=== PATIENT | male | born 1940 | race American Indian/Alaskan Native ===

== ENCOUNTER 2018-11-24 14:40 | Inpatient (IN) | payer MEDICARE, OTHER ==
[2018-11-24 15:13] LABS: Basophils % (Auto) 0.4 % (0.0-1.8); Eosinophils # (Auto) 0.1 K/mm3 (0.0-0.4); Eosinophils % (Auto) 1.6 % (0.0-4.3); Hematocrit 45.3 % (35.5-45.6); Hemoglobin 14.8 gm/dl (11.8-15.2); Lymphocytes # (Auto) 1.7 K/mm3 (1.2-5.4); Lymphocytes % (Auto) 20.6 % (13.4-35.0); Mean Corpuscular HGB Conc 33 % (32-34); Mean Corpuscular Volume 84 fl (84-94); Monocytes # (Auto) 0.4 K/mm3 (0.0-0.8); Monocytes % (Auto) 5.3 % (0.0-7.3); Platelet Count 231 K/mm3 (140-440); Red Blood Count 5.41 M/mm3 (3.65-5.03); Red Cell Distribution Width 14.8 % (13.2-15.2)
--- NOTE | 2018-11-24 15:16 | Emergency Department Report ---
HPI - General Chief Complaint: Altered Mental Status Time Seen by Provider: 11/24/18 14:55 - HPI HPI: 78-year-old male presents to the emergency department with a complaint of some confusion and hyperglycemia. The patient was sitting outside, talking with his , when he started complaining of feeling too hot. Family took him back into the house and checked his blood sugar and was found to be 480. He was given both some NovoLog and Lantus and then they called for EMS. He has his past medical history of insulin-dependent diabetes, hypertension, hyperlipidemia, coronary artery disease with bypass. His primary care physician is a Dr. Styles. Patient says he is unaware of exactly what happened prior to arrival. He thinks that the year is 1975. ED Past Medical Hx - Past Medical History Previous Medical History?: Yes Hx Hypertension: Yes Hx Diabetes: Yes Additional medical history: hyperlipidemia, bypass x3 vessels - Social History Smoking Status: Never Smoker Substance Use Type: Alcohol - Medications Home Medications: Home Medications Medication Instructions Recorded Confirmed Last Taken Type Aspirin [Aspirin TAB] 325 mg PO DAILY 11/24/18 11/24/18 Unknown History Brimonidine Tartrate [Brimonidine 1 drop OU BID 11/24/18 11/24/18 Unknown History Tartrate 0.2%] Cholecalciferol Vit D3 [Vitamin D3 2,000 unit PO BID 11/24/18 11/24/18 Unknown History 1,000 UNIT TAB] Ergocalciferol (Vitamin D2) 50,000 unit PO QWEEK 11/24/18 11/24/18 Unknown History [Drisdol] Losartan [Cozaar] 100 mg PO DAILY 11/24/18 11/24/18 Unknown History NIFEdipine [Adalat cc] 90 mg PO DAILY 11/24/18 11/24/18 Unknown History Rosuvastatin Calcium [Crestor] 40 mg PO DAILY 11/24/18 11/24/18 Unknown History Saxagliptin HCl [Onglyza] 5 mg PO DAILY 11/24/18 11/24/18 Unknown History ED Review of Systems ROS: Stated complaint: ALTERED MENTAL STATUS Other details as noted in HPI Comment: Unobtainable due to pts medical conditions Neurological: confusion Physical Exam - Physical Exam Vital Signs: Vital Signs 11/24/18 14:48 Temperature 98.8 F Pulse Rate 79 Respiratory 17 Rate Blood Pressure 156/74 [Left] O2 Sat by Pulse 100 Oximetry Physical Exam: GENERAL: The patient is well-developed well-nourished. HEENT: Normocephalic. Atraumatic. Patient has moist mucous membranes. EYES: Extraocular motions are intact. Pupils are equal and reactive to light bilaterally. NECK: Supple. Trachea is midline. CHEST/LUNGS: Clear to auscultation. There is no respiratory distress noted. HEART/CARDIOVASCULAR: Regular. There is no tachycardia. There is no obvious murmur. ABDOMEN: Abdomen is soft, nontender. Patient has normal bowel sounds. There is no abdominal distention. SKIN: Skin is warm and dry. NEURO: The patient is awake, alert, the patient is confused at AAO2 to person and place but not time. The patient is cooperative. The patient has no focal neurologic deficits. The patient has normal speech. No facial asymmetry. No pronator drift. No dysmetria. MUSCULOSKELETAL: There is no tenderness or deformity. There is no limitation range of motion. There is no evidence of acute injury. ED Course Vital Signs 11/24/18 14:48 Temperature 98.8 F Pulse Rate 79 Respiratory 17 Rate Blood Pressure 156/74 [Left] O2 Sat by Pulse 100 Oximetry - Consultations Consultation #1: 11/24/18 19:22 I spoke with the lockstitch lining maker on-call, Dr. Gomez, who agrees with the plan to give the hyperkalemia cocktail and he will consult on the patient regarding the hyperkalemia. ED Medical Decision Making - Lab Data Result diagrams: 11/24/18 15:02 11/24/18 15:02 - EKG Data -: EKG Interpreted by Ct EKG shows normal: sinus rhythm, axis, intervals, QRS complexes (Q waves to the anterior leads), ST-T waves (flattening of the T waves) Rate: normal - EKG Data When compared to previous EKG there are: previous EKG unavailable Interpretation: other (sinus rhythm, rate of 74, Q waves to the anterior leads, flattened T waves) - Radiology Data Radiology results: report reviewed CT scan of the brain without contrast does not show any acute intracranial process. 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 - Medical Decision Making 78-year-old male presents to the emergency department after he started feeling very warm and apparently had some confusion or altered mental status. He had some hypoglycemia. He does not appear to be in diabetic ketoacidosis as there is no elevated anion gap or any venous acidosis. However the patient's labs does show hypokalemia with a potassium of 6.4. Patient was given Kayexalate, insulin, calcium gluconate, albuterol. I contacted the lockstitch lining maker admissions assistant who will consult on the patient and follow the hyperkalemia. CT scan of the head showed old bilateral occipital lobe infarcts but no acute intracranial process. EKG does not show any signs of ST elevation HI or dysrhythmia. The patient will be admitted to the hospital for his altered mental status and hyperkalemia and was subsequently admission by the hospitalist, Dr. Quick. - Differential Diagnosis CVA, TIA, DKA, hyperkalemia, dysrhythmia Critical Care Time: No Critical care attestation.: If time is entered above; I have spent that time in minutes in the direct care of this critically ill patient, excluding procedure time. ED Disposition Clinical Impression: Hyperkalemia Altered mental status Qualifiers: Altered mental status type: unspecified Qualified Code(s): R41.82 - Altered mental status, unspecified Uncontrolled diabetes mellitus Qualifiers: Diabetes mellitus type: type 1 Glycemic state: with hyperglycemia Qualified Code(s): E10.65 - Type 1 diabetes mellitus with hyperglycemia Disposition: -09 OP ADMIT IP TO THIS HOSP Is pt being admited?: Yes Condition: Serious Time of Disposition: 19:23 - Assessment Assessment Interval: Baseline - Level of Consciousness 1a. Level of Consciousness: alert/keenly responsive - LOC Questions 1b. LOC Questions: answers both correctly - LOC Command 1c. LOC Commands: performs tasks correctly - Best Gaze 2. Best Gaze: normal - Visual 3. Visual: no visual loss - Facial Palsy 4. Facial Palsy: normal symmetrical movement - Motor Arm 5a. Motor Arm Left: no drift 5b. Motor Arm Right: no drift - Motor Leg 6a. Motor Leg Left: no drift 6b. Motor Leg Right: no drift - Limb Ataxia 7. Limb Ataxia: absent - Sensory 8. Sensory: normal - Best Language 9. Best Language: no aphasia - Dysarthria 10. Dysarthria: normal - Extinction and Inattention 11. Extinction/Inattention: no abnormality - Scoring Total Score: 0 Stroke Severity: No Stroke Symptoms
[2018-11-24 15:40] LABS: Albumin 3.9 g/dL (3.9-5); Calcium 8.8 mg/dL (8.4-10.2)
[2018-11-24] MEDS ORDERED: HumuLIN R IV ONE (15:50)
[2018-11-24] MEDS ORDERED: KIONEX PO ONE (15:53)
[2018-11-24] MEDS ORDERED: PROVENTIL IH ONE (15:53)
[2018-11-24] MEDS ORDERED: CALCIUM GLUCONATE 1,000 MG in NACL 0.9% 100 ML IV ONE (16:53)
--- NOTE | 2018-11-24 17:18 | Cat Scan Report ---
PROCEDURE: CT HEAD/BRAIN WO CON TECHNIQUE: CT of the head was performed without intravenous contrast. HISTORY: AMS COMPARISONS: None FINDINGS: The ventricles are normal in position and shape. The ventricles are nondilated. No intracranial hemorrhage, mass, mass effect or evidence of acute ischemic infarct. Probable old michael ateral occipital lobe infarcts are seen. There is mild diffuse cerebral volume loss. There is focal l ow attenuation in the subcortical white matter of the right frontal lobe. The basilar cisterns are patent. There is mild mucosal thickening of the paranasal sinuses which is likely congestive or inflammatory. The mastoid air cells are clear. The orbits are intact. The calvarium is intact. No extracranial soft tissue swelling. IMPRESSION: 1. No acute intracranial abnormality. 2. 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 3. Low-attenuation in the right frontal subcortical white matter may represent an old infarct versus chronic microvascular ischemic change. This document is electronically signed by Danica Dotson., November 24 2018 05:16:26 PM ET
[2018-11-24 17:37] LABS: Amphetamine Screen,Urine PRESUMPTIVE NEGATIVE; Benzodiazepines Screen,Urine PRESUMPTIVE NEGATIVE; Cannabinoid Screen,Urine PRESUMPTIVE NEGATIVE; Cocaine Screen,Urine PRESUMPTIVE NEGATIVE; Methadone Screen,Urine PRESUMPTIVE NEGATIVE; Opiate Screen,Urine PRESUMPTIVE NEGATIVE
[2018-11-24 17:38] LABS: Bacteria,Urine 1+ /HPF (Negative); Bilirubin,Urine NEG (Negative); Blood,Urine NEG (Negative); Color,Urine Yellow (Yellow); Mucus,Urine FEW /HPF; Urobilinogen,Urine < 2.0 mg/dL (<2.0)
--- NOTE | 2018-11-24 17:38 | History and Physical Report ---
History of Present Illness Chief complaint: He's not acting right History of present illness: 78 YO Male with HTN, DM, HLD, CAD S/P CABG presents to ED for evaluation. Pt is lethargic and unable to provide detailed history. Pt history provided by family who is at bedside during exam and interview. As per family, the patient stated that he was "feeling hot" and subsequently experienced and episode of slurred speech as well as confusion. Pt blood glucose was checked and was found to be 480. Pt treated with NovoLog and Lantus wit improvement in blood glucose. EMS was notified, and upon arrival the patient was found to be in distress. The patient was transported to [facility]. Pt seen and evaluated in ED and found to have symptoms consistent with CVA, Encephalopathy. Pt admitted to Telemetry, and initiated on CVA protocol. Pt outside therapeutic window for TPA at time of presentation. Neurology consulted in ED, Past History Past Medical History: CAD, diabetes, hypertension, hyperlipidemia Past Surgical History: CABG Social history: , lives with family. denies: smoking, alcohol abuse, prescription drug abuse Family history: diabetes, hypertension Medications and Allergies Allergies Allergy/AdvReac Type Severity Reaction Status Date / Time trimethobenzamide Allergy Unknown Verified 11/24/18 14:41 [From [facility]] Home Medications Medication Instructions Recorded Confirmed Last Taken Type Aspirin [Aspirin TAB] 325 mg PO DAILY 11/24/18 11/24/18 Unknown History Brimonidine Tartrate [Brimonidine 1 drop OU BID 11/24/18 11/24/18 Unknown History Tartrate 0.2%] Cholecalciferol Vit D3 [Vitamin D3 2,000 unit PO BID 11/24/18 11/24/18 Unknown History 1,000 UNIT TAB] Ergocalciferol (Vitamin D2) 50,000 unit PO QWEEK 11/24/18 11/24/18 Unknown History [Drisdol] Losartan [Cozaar] 100 mg PO DAILY 11/24/18 11/24/18 Unknown History NIFEdipine [Adalat cc] 90 mg PO DAILY 11/24/18 11/24/18 Unknown History Rosuvastatin Calcium [Crestor] 40 mg PO DAILY 11/24/18 11/24/18 Unknown History Saxagliptin HCl [Onglyza] 5 mg PO DAILY 11/24/18 11/24/18 Unknown History Review of Systems All systems: negative Exam - Constitutional Vitals: Temp Pulse Resp BP Pulse Ox 98.8 F 62 15 156/74 100 11/24/18 14:48 11/24/18 17:05 11/24/18 17:05 11/24/18 14:48 11/24/18 14:48 General appearance: Present: mild distress - EENT Eyes: Present: PERRL ENT: hearing intact, clear oral mucosa - Neck Neck: Present: supple, normal ROM - Respiratory Respiratory effort: normal Respiratory: bilateral: CTA - Cardiovascular Heart Sounds: Present: S1 & S2. Absent: rub, click - Extremities Extremities: pulses symmetrical, No edema Peripheral Pulses: within normal limits - Abdominal General gastrointestinal: Present: soft, non-tender, non-distended, normal bowel sounds Male genitourinary: Present: normal - Integumentary Integumentary: Present: clear, warm, dry - Musculoskeletal Musculoskeletal: generalized weakness - Psychiatric Psychiatric: no appropriate mood/affect, no intact judgment & insight, no memory intact - Neurologic Neurologic: CNII-XII intact, focal deficits, moves all extremities, no gait normal Results - Labs CBC & Chem 7: 11/24/18 15:02 11/24/18 15:02 Labs: Abnormal lab results 11/24/18 11/24/18 11/24/18 Range/Units 14:46 15:02 15:02 RBC 5.41 H (3.65-5.03) M/mm3 MCH 27 L (28-32) pg Seg Neutrophils % 72.1 H (40.0-70.0) % VBG pH (7.320-7.420) Sodium 134 L (137-145) mmol/L Potassium 6.4 H* (3.6-5.0) mmol/L Glucose 460 H (75-100) mg/dL POC Glucose 408 H (70-105) TSH (0.270-4.200) mlU/mL 11/24/18 11/24/18 11/24/18 Range/Units 15:02 15:06 16:26 RBC (3.65-5.03) M/mm3 MCH (28-32) pg Seg Neutrophils % (40.0-70.0) % VBG pH 7.286 L (7.320-7.420) Sodium (137-145) mmol/L Potassium (3.6-5.0) mmol/L Glucose (75-100) mg/dL POC Glucose 360 H (70-105) TSH 6.950 H (0.270-4.200) mlU/mL Assessment and Plan - Patient Problems (1) CVA (cerebral vascular accident) Current Visit: Yes Status: Acute Qualifiers: Precerebral and cerebral artery: posterior cerebral artery Plan to address problem: CVA Protocol: CT Head, MRI Brain, MRA Brain, Neuro Checks, Carotid Doppler, Antiplatelet Therapy, Lipid panel, Statin therapy, PT/OT/Speech, Neuro checks, (2) Encephalopathy Current Visit: Yes Status: Acute Plan to address problem: CT Head, Neuro checks, Thyroid panel,Seizure Precautions, Aspiration Precautions (3) Hyperkalemia Current Visit: Yes Status: Acute Plan to address problem: Repeat BMP, nephrology consulted in ED. (4) DVT prophylaxis Current Visit: Yes Status: Acute Plan to address problem: SCD to BLE while in bed.
[2018-11-24] MEDS ORDERED: PROVENTIL IH PRN (18:20)
[2018-11-24] MEDS ORDERED: DULCOLAX PR PRN (18:20)
[2018-11-24] MEDS ORDERED: SODIUM CHLORIDE FLUSH SYRINGE 10 ML IV PRN (18:20)
[2018-11-24] MEDS ORDERED: MILK OF MAGNESIA PO PRN (18:20)
[2018-11-24] MEDS ORDERED: PHENERGAN PR PRN (18:20)
[2018-11-24] MEDS ORDERED: REGLAN PO PRN (18:20)
[2018-11-24] MEDS ORDERED: ZOFRAN IV PRN (18:20)
[2018-11-24] MEDS ORDERED: VITAMIN D3 PO SCH (22:00)
[2018-11-24] MEDS ORDERED: HumaLOG SUB-Q ONE (23:12)
[2018-11-25] MEDS: TYLENOL PO PRN ×2 (00:58→16:34)
[2018-11-25] MEDS ORDERED: MORPHINE IM ONE (02:01)
[2018-11-25 06:46] LABS: Chol/HDL Ratio 7.67 %
[2018-11-25 09:26] LABS: Calcium 8.8 mg/dL (8.4-10.2)
[2018-11-25] MEDS ORDERED: NON-FORMULARY (Rosuvastatin Calcium [Crestor] 40 MG) PO SCH (10:00)
[2018-11-25] MEDS ORDERED: NON-FORMULARY (Nifedipine [Adalat Cc] 90 MG) PO SCH (10:00)
[2018-11-25] MEDS ORDERED: NON-FORMULARY (Losartan [Cozaar] 100 MG) PO SCH (10:00)
[2018-11-25] MEDS ORDERED: NON-FORMULARY (Saxagliptin Hcl [Onglyza] 5 MG) PO SCH (10:00)
[2018-11-25] MEDS ORDERED: ASPIRIN PO SCH (10:00)
--- NOTE | 2018-11-25 10:12 | Vascular Lab Report ---
PROCEDURE: VL CAROTID DUPLEX BILAT TECHNIQUE: Carotid ultrasound. Degree of carotid stenosis calculated by indirect methods via the peak systolic velocities of the ICA and CCA and reference with the society of Radiologist and Ultrasound consensus conference radiology 2003. HISTORY: Altered mental status. Encephalopathy. Stroke COMPARISONS: None currently available. FINDINGS: Note: Measurement of carotid stenosis is based on flow velocity values that correlate with the [place] Symptomatic Carotid Endarterectomy Trial (NASCET) based stenosis criteria using the internal carotid artery diameter as the denominator for stenosis calculation. RIGHT CCA, ICA, and ECA (cm/s): 129, 62, and 95. Ratio = 0.48. LEFT CCA, ICA, and ECA (cm/s): 110, 78, and 87.. Ratio = 0.71. There is plaque in both carotids. Both vertebral arteries demonstrate antegrade flow. Normal spectral rhythm is identified. IMPRESSION: * No hemodynamically significant (>50%) stenosis noted based on the ratios, velocities, and color Do ppler images. This document is electronically signed by Nabeel Hayes MD., November 25 2018 10:10:10 AM ET
[2018-11-25] MEDS: HumaLOG SUB-Q SCH ×4 (10:15→21:44)
--- NOTE | 2018-11-25 11:05 | Magnetic Resonance Report ---
MRI OF THE BRAIN WITHOUT CONTRAST: HISTORY: Stroke PROCEDURE: Multiplanar, multisequence MR imaging of the brain without IV contrast was performed. FINDINGS: Compared to the CT head dated 11/24/18. MRI demonstrates an approximate 1.5 cm area of diffusion restriction in the left anterior basal ganglia which appears to involve the head of the caudate nucleus. No other areas of diffusion restriction are identified. No evidence for hemorrhage, mass or extra-axial fluid collection. Moderate diffuse volume loss and mild nonspecific chronic white matter changes are identified. Chronic cortical infarcts are identified in both occipital lobes, right greater than left. The posterior fossa is within normal limits. The midline structures are central. The basal cisterns are patent. Normal ventricular size. The orbital cavities and sella turcica demonstrate no abnormality. The visualized paranasal sinuses and mastoid air cells are well aerated. IMPRESSION: 1.5 cm area of subacute ischemia in the left anterior basal ganglia. Volume loss. Chronic white matter changes. Chronic bilateral occipital infarcts.
--- NOTE | 2018-11-25 11:06 | Magnetic Resonance Report ---
MRA HEAD WITHOUT CONTRAST HISTORY: Stroke. [id number] imaging with MIP reformations of the [place] is submitted. The arteries appear widely patent and free of hemodynamically significant stenosis, aneurysm or dissection. origin of the left [employer] is noted. IMPRESSION: Unremarkable MRA head.
--- NOTE | 2018-11-25 11:19 | Consultation ---
History of Present Illness - Reason for Consult Consult date: 11/25/18 chronic renal failure, hyperkalemia Requesting physician: ADRIEL MAYS - History of Present Illness This is a 78 yo M with past medical history of HTN, DM, HLD, CAD S/P CABG who initially presented to ED with lethargy. As per pt's family pt was complaining that he was "feeling hot" and subsequently experienced and episode of slurred speech as well as confusion. Pt blood glucose was checked and was found to be 480. EMS was notified, and upon arrival the patient was found to be in distress. Pt treated with NovoLog and Lantus wit improvement in blood glucose. in ER patient was found to have symptoms consistent with CVA, Encephalopathy. Pt admitted to Telemetry, and initiated on CVA protocol. CT head showed old b/l occipital infarct, however no acute findings. MRA of head was unremarkable. Labs showed elevated serum glucose of >460, along with elevated BUN/Cr at 15/1.5mg/dl along with severe hyperkalemia with K > 6.4 for which renal consult was requested. pt seen and examined at bedside, back to his baseline mental status, denies fever, chills, n/v/d, dysuria, abd pain, diarrhea, denies recent NSAIDs use or IV contrast exposure. pt's states that he sees a temperature logging operator at [place] for mild CKD. Past History Past Medical History: CAD, diabetes, hypertension, hyperlipidemia Past Surgical History: CABG Social history: , lives with family. denies: smoking, alcohol abuse, prescription drug abuse Family history: diabetes, hypertension Medications and Allergies Allergies Allergy/AdvReac Type Severity Reaction Status Date / Time trimethobenzamide Allergy Unknown Verified 11/24/18 14:41 [From [facility]] Home Medications Medication Instructions Recorded Confirmed Last Taken Type Aspirin [Aspirin TAB] 325 mg PO DAILY 11/24/18 11/24/18 Unknown History Brimonidine Tartrate [Brimonidine 1 drop OU BID 11/24/18 11/24/18 Unknown History Tartrate 0.2%] Cholecalciferol Vit D3 [Vitamin D3 2,000 unit PO BID 11/24/18 11/24/18 Unknown History 1,000 UNIT TAB] Ergocalciferol (Vitamin D2) 50,000 unit PO QWEEK 11/24/18 11/24/18 Unknown History [Drisdol] Ezetimibe [Zetia] 7.5 mg PO QDAY 11/24/18 11/24/18 11/23/18 History Insulin Detemir [Levemir VIAL] 40 units SUB-Q HS 11/24/18 11/24/18 11/23/18 History Lispro Insulin [Humalog] 15 unit SQ ACHS 11/24/18 11/24/18 11/24/18 History Losartan [Cozaar] 100 mg PO DAILY 11/24/18 11/24/18 Unknown History NIFEdipine [Adalat cc] 90 mg PO DAILY 11/24/18 11/24/18 Unknown History Rosuvastatin Calcium [Crestor] 40 mg PO DAILY 11/24/18 11/24/18 Unknown History Saxagliptin HCl [Onglyza] 5 mg PO DAILY 11/24/18 11/24/18 Unknown History Active Meds: Active Medications Acetaminophen (Tylenol) 650 mg PO Q4H PRN PRN Reason: Pain, Mild (1-3) Last Admin: 11/25/18 00:58 Dose: 650 mg Documented by: Albuterol (Proventil) 2.5 mg IH Q3HRT PRN PRN Reason: Shortness Of Breath Aspirin (Aspirin) 325 mg PO QDAY [facility] Atorvastatin Calcium (Lipitor) 80 mg PO QHS [facility] Last Admin: 11/24/18 23:06 Dose: Not Given Documented by: Bisacodyl (Dulcolax) 10 mg [place] QDAY PRN PRN Reason: Constipation Ergocalciferol (Vitamin D2) 50,000 unit PO Th [facility] Insulin Human Lispro (Humalog) 0 unit SUB-Q [facility]; Protocol Last Admin: 11/25/18 10:15 Dose: Not Given Documented by: Linagliptin (Tradjenta) 5 mg PO QDAY [facility] Losartan Potassium (Cozaar) 100 mg PO QDAY [facility] Magnesium Hydroxide (Milk Of Magnesia) 30 ml PO Q4H PRN PRN Reason: Constipation Metoclopramide HCl (Reglan) 10 mg PO Q6H PRN PRN Reason: Nausea And Vomiting Miscellaneous Medication (Brimonidine Tartrate [Brimonidine Tartrate 0.2%]) 1 drop OU BID [facility] Nifedipine (Procardia Xl) 90 mg PO QDAY [facility] Ondansetron HCl (Zofran) 4 mg IV Q8H PRN PRN Reason: Nausea And Vomiting Promethazine HCl (Phenergan) 25 mg [place] Q6H PRN PRN Reason: Nausea And Vomiting Sodium Chloride (Sodium Chloride Flush Syringe 10 Ml) 10 ml IV PRN PRN PRN Reason: LINE FLUSH Review of Systems All systems: negative Constitutional: weakness Cardiovascular: lightheadedness Gastrointestinal: nausea Exam - Vital Signs Vital signs: Vital Signs Pulse Resp Pulse Ox 69 19 97 11/24/18 14:46 11/24/18 14:46 11/24/18 14:46 - General Appearance General appearance: well-developed, well-nourished, appears stated age EENT: ATNC, PERRL, mucous membranes moist Neck: Present: neck supple Respiratory: Clear to Ascultation Heart: regular, S1S2 Gastrointestinal: Present: normoactive bowel sounds Integumentary: no rash, other (no edema ) Neurologic: no focal deficit, alert and oriented x3, strength 5/5, CN 3-12 intact Psychiatric: mood/affect appropriate, cooperative Results - Lab Results 11/24/18 15:02 11/25/18 04:43 Most recent lab results Calcium 8.8 mg/dL (8.4-10.2) 11/25/18 04:43 Laboratory Tests 11/24/18 11/25/18 Unknown 04:43 Triglycerides 158 H Cholesterol 284 H LDL Cholesterol Direct 233 H HDL Cholesterol 37 L Cholesterol/HDL Ratio 7.67 Urine Color Yellow Urine Turbidity Clear Urine pH 6.0 Ur Specific [place] 1.017 Urine Protein 30 mg/dl Urine Glucose (UA) >=500 Urine Ketones Neg Urine Blood Neg Urine Nitrite Neg Urine Bilirubin Neg Urine Urobilinogen < 2.0 Ur Leukocyte Esterase Neg Urine WBC (Auto) 1.0 Urine RBC (Auto) 1.0 U Epithel Cells (Auto) 1.0 Urine Bacteria (Auto) 1+ Urine Mucus Few Assessment and Plan - Patient Problems (1) Hyperkalemia Current Visit: Yes Status: Acute Plan to address problem: Hyperkalemia due to transcellular shift of K, decreased distal tubular Na delivery in the setting of uncontrolled DM with hyperglycemia and concurrent treatment with ARB. K normalized with medical treatment incl. IV insulin, IV NS, kayexelate. can resume losartan for BP control. cont 2g K renal diet. 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 avoid further nephrotoxins, NSAIDs, IV contrast
[2018-11-25] MEDS: TRADJENTA PO SCH (12:23)
[2018-11-25] MEDS: COZAAR PO SCH (12:24)
[2018-11-25] MEDS: PROCARDIA XL PO SCH (12:24)
[2018-11-25] MEDS: ASPIRIN PO SCH (12:24)
--- NOTE | 2018-11-25 16:17 | Consultation ---
History of Present Illness Consult date: 11/25/18 Requesting physician: ROMINA ORONA Reason for Consult: stroke History of present illness: This is a 78 yr old male with history of diabetes, htn., heart disease, S/P CABG, HLP, presented with AMS 11/24/18 The pt. was sitting outside with family when he felt hot and went inside. checked his blood sugar and found it to be >400. He proceeded to become minimally responsive. Family called EMS and he was brought to ER. Glucose was treated, and he improved. CT was neg. He has also been complaining of rt. hip pain and leg numbness since this event. Past History Past Medical History: CAD, diabetes, hypertension, hyperlipidemia Past Surgical History: CABG Social history: , lives with family. denies: smoking, alcohol abuse, prescription drug abuse Family history: diabetes, hypertension Medications and Allergies Allergies Allergy/AdvReac Type Severity Reaction Status Date / Time trimethobenzamide Allergy Unknown Verified 11/24/18 14:41 [From [facility]] Home Medications Medication Instructions Recorded Confirmed Last Taken Type Aspirin [Aspirin TAB] 325 mg PO DAILY 11/24/18 11/24/18 Unknown History Brimonidine Tartrate [Brimonidine 1 drop OU BID 11/24/18 11/24/18 Unknown History Tartrate 0.2%] Cholecalciferol Vit D3 [Vitamin D3 2,000 unit PO BID 11/24/18 11/24/18 Unknown History 1,000 UNIT TAB] Ergocalciferol (Vitamin D2) 50,000 unit PO QWEEK 11/24/18 11/24/18 Unknown His tory [Drisdol] Ezetimibe [Zetia] 7.5 mg PO QDAY 11/24/18 11/24/18 11/23/18 History Insulin Detemir [Levemir VIAL] 40 units SUB-Q HS 11/24/18 11/24/18 11/23/18 History Lispro Insulin [Humalog] 15 unit SQ ACHS 11/24/18 11/24/18 11/24/18 History Losartan [Cozaar] 100 mg PO DAILY 11/24/18 11/24/18 Unknown History NIFEdipine [Adalat cc] 90 mg PO DAILY 11/24/18 11/24/18 Unknown History Rosuvastatin Calcium [Crestor] 40 mg PO DAILY 11/24/18 11/24/18 Unknown History Saxagliptin HCl [Onglyza] 5 mg PO DAILY 11/24/18 11/24/18 Unknown History Active Meds: Active Medications Acetaminophen (Tylenol) 650 mg PO Q4H PRN PRN Reason: Pain, Mild (1-3) Last Admin: 11/25/18 00:58 Dose: 650 mg Documented by: Albuterol (Proventil) 2.5 mg IH Q3HRT PRN PRN Reason: Shortness Of Breath Aspirin (Aspirin) 325 mg PO QDAY [facility] Last Admin: 11/25/18 12:24 Dose: 325 mg Documented by: Atorvastatin Calcium (Lipitor) 80 mg PO QHS [facility] Last Admin: 11/24/18 23:06 Dose: Not Given Documented by: Bisacodyl (Dulcolax) 10 mg CO QDAY PRN PRN Reason: Constipation Ergocalciferol (Vitamin D2) 50,000 unit PO Th [facility] Insulin Human Lispro (Humalog) 0 unit SUB-Q [facility]; Protocol Last Admin: 11/25/18 12:25 Dose: 3 unit Documented by: Linagliptin (Tradjenta) 5 mg PO QDAY [facility] Last Admin: 11/25/18 12:23 Dose: 5 mg Documented by: Losartan Potassium (Cozaar) 100 mg PO QDAY [facility] Last Admin: 11/25/18 12:24 Dose: 100 mg Documented by: Magnesium Hydroxide (Milk Of Magnesia) 30 ml PO Q4H PRN PRN Reason: Constipation Metoclopramide HCl (Reglan) 10 mg PO Q6H PRN PRN Reason: Nausea And Vomiting Miscellaneous Medication (Brimonidine Tartrate [Brimonidine Tartrate 0.2%]) 1 drop OU BID [facility] Nifedipine (Procardia Xl) 90 mg PO QDAY [facility] Last Admin: 11/25/18 12:24 Dose: 90 mg Documented by: Ondansetron HCl (Zofran) 4 mg IV Q8H PRN PRN Reason: Nausea And Vomiting Promethazine HCl (Phenergan) 25 mg CO Q6H PRN PRN Reason: Nausea And Vomiting Sodium Chloride (Sodium Chloride Flush Syringe 10 Ml) 10 ml IV PRN PRN PRN Reason: LINE FLUSH Physical Examination - Vital Signs Vital Signs: Vital Signs Pulse Resp Pulse Ox 69 19 97 11/24/18 14:46 11/24/18 14:46 11/24/18 14:46 - Physical Exam Narrative exam: Resting comfortably in bed. Neurological exam - Speech fluent, oriented. manager ccu - EOMS full, face symmetric, tongue midline. Vth cranial nerve intact bilaterally. hearing intact. Motor - 5/5 except for mild weakness in rt. leg, 5-/5 Sensory - intact all 4 extremities. Reflexes - trace throughout. Cerebellar - FTN, Vladimir, FFM intact. Ambulated with PT and did well. - Assessment Assessment Interval: Baseline - Level of Consciousness 1a. Level of Consciousness: alert/keenly responsive - LOC Questions 1b. LOC Questions: answers both correctly - LOC Command 1c. LOC Commands: performs tasks correctly - Best Gaze 2. Best Gaze: normal - Visual 3. Visual: no visual loss - Facial Palsy 4. Facial Palsy: normal symmetrical movement - Motor Arm 5b. Motor Arm Right: no drift - Motor Leg 6a. Motor Leg Left: no drift - Limb Ataxia 7. Limb Ataxia: absent - Sensory 8. Sensory: normal - Best Language 9. Best Language: no aphasia - Dysarthria 10. Dysarthria: normal - Extinction and Inattention 11. Extinction/Inattention: no abnormality Results - Laboratory Findings CBC and BMP: 11/24/18 15:02 11/25/18 04:43 Abnormal Lab Findings: Abnormal Labs 11/24/18 11/24/18 11/24/18 14:46 15:02 15:02 RBC 5.41 H MCH 27 L Seg Neutrophils % 72.1 H VBG pH Sodium 134 L Potassium 6.4 H* Carbon Dioxide Glucose 460 H POC Glucose 408 H Triglycerides Cholesterol LDL Cholesterol Direct HDL Cholesterol TSH 11/24/18 11/24/18 11/24/18 15:02 15:06 16:26 RBC MCH Seg Neutrophils % VBG pH 7.286 L Sodium Potassium Carbon Dioxide Glucose POC Glucose 360 H Triglycerides Cholesterol LDL Cholesterol Direct HDL Cholesterol TSH 6.950 H 11/24/18 11/24/18 11/24/18 19:45 20:38 23:15 RBC MCH Seg Neutrophils % VBG pH Sodium Potassium Carbon Dioxide Glucose POC Glucose 225 H 225 H 291 H Triglycerides Cholesterol LDL Cholesterol Direct HDL Cholesterol TSH 11/25/18 11/25/18 11/25/18 04:43 04:43 08:04 RBC MCH Seg Neutrophils % VBG pH Sodium Potassium Carbon Dioxide 21 L Glucose 213 H POC Glucose 202 H Triglycerides 158 H Cholesterol 284 H LDL Cholesterol Direct 233 H HDL Cholesterol 37 L TSH 11/25/18 12:29 RBC MCH Seg Neutrophils % VBG pH Sodium Potassium Carbon Dioxide Glucose POC Glucose 219 H Triglycerides Cholesterol LDL Cholesterol Direct HDL Cholesterol TSH Assessment and Plan 78 yr old male with onset of hypoglycemia, also found by MRI to have a subacute left basal ganglia stroke. TSH is also elevated. Plan - ASA and statin. treat hypothyroidism Check rt. hip film.
--- NOTE | 2018-11-25 17:39 | Progress Note ---
Assessment and Plan (1) CVA (cerebral vascular accident) Current Visit: Yes Status: Acute Qualifiers: Rt Side weakness iumproving MRI IMPRESSION: 1.5 cm area of subacute ischemia in the left anterior basal ganglia. Volume loss. Chronic white matter changes. Chronic bilateral occipital infarcts. (2) Encephalopathy Current Visit: Yes Status: Acute Plan to address problem: Improved (3) Hyperkalemia Current Visit: Yes Status: Acute Plan to address problem: Improved 4,Type 2 diabetes Continue Januvia and coverage (5) DVT prophylaxis Current Visit: Yes Status: Acute Plan to address problem: SCD to BLE while in bed. Subjective Date of service: 11/25/18 Principal diagnosis: CVA Interval history: Improved power Objective - Constitutional Vitals: Vital Signs - 12hr 11/25/18 11/25/18 11/25/18 10:00 12:08 12:10 Temperature 98.4 F Pulse Rate 62 Pulse Rate [ 64 Apical] Pulse Rate [ 64 Left Radial] Pulse Rate [ 64 Right Radial] Respiratory 19 18 Rate Blood Pressure 146/74 O2 Sat by Pulse 98 99 Oximetry 11/25/18 12:24 Temperature Pulse Rate 64 Pulse Rate [ Apical] Pulse Rate [ Left Radial] Pulse Rate [ Right Radial] Respiratory Rate Blood Pressure 122/61 O2 Sat by Pulse Oximetry General appearance: Present: no acute distress, well-nourished - EENT Eyes: PERRL, EOM intact ENT: hearing intact, clear oral mucosa Ears: bilateral: normal - Neck Neck: supple, normal ROM - Respiratory Respiratory effort: normal Respiratory: bilateral: CTA - Breasts Breasts: normal - Cardiovascular Rhythm: regular Heart Sounds: Present: S1 & S2. Absent: gallop, rub Extremities: pulses intact, No edema, normal color, Full ROM - Gastrointestinal General gastrointestinal: Present: soft, non-tender, non-distended, normal bowel sounds - Genitourinary Male genitourinary: normal - Integumentary Integumentary: clear, warm, dry - Musculoskeletal Musculoskeletal: right sided weakness - Neurologic Neurologic: moves all extremities - Psychiatric Psychiatric: memory intact, appropriate mood/affect, intact judgment & insight - Allied health notes Allied health notes reviewed: nursing, case management - Labs CBC & Chem 7: 11/24/18 15:02 11/25/18 04:43 Labs: Abnormal lab results 11/24/18 11/24/18 11/24/18 Range/Units 19:45 20:38 23:15 Carbon Dioxide (22-30) mmol/L Glucose (75-100) mg/dL POC Glucose 225 H 225 H 291 H (70-105) Triglycerides (2-149) mg/dL Cholesterol (50-199) mg/dL LDL Cholesterol Direct (50-130) mg/dL HDL Cholesterol (40-59) mg/dL 11/25/18 11/25/18 11/25/18 Range/Units 04:43 04:43 08:04 Carbon Dioxide 21 L (22-30) mmol/L Glucose 213 H (75-100) mg/dL POC Glucose 202 H (70-105) Triglycerides 158 H (2-149) mg/dL Cholesterol 284 H (50-199) mg/dL LDL Cholesterol Direct 233 H (50-130) mg/dL HDL Cholesterol 37 L (40-59) mg/dL 11/25/18 Range/Units 12:29 Carbon Dioxide (22-30) mmol/L Glucose (75-100) mg/dL POC Glucose 219 H (70-105) Triglycerides (2-149) mg/dL Cholesterol (50-199) mg/dL LDL Cholesterol Direct (50-130) mg/dL HDL Cholesterol (40-59) mg/dL
[2018-11-25] MEDS ORDERED: PERCOCET 5/325 PO PRN (20:02)
[2018-11-25] MEDS: NON-FORMULARY (Brimonidine Tartrate [Brimonidine Tartrate 0.2%] 1 DROP) OU SCH ×3 (21:45→21:46)
[2018-11-25] MEDS ORDERED: PERCOCET 5/325 PO ONE (22:59)
--- NOTE | 2018-11-25 23:41 | XRay Report ---
PROCEDURE: RIGHT HIP, 2 VIEWS TECHNIQUE: RIGHT hip radiographs, AP and lateral views. CPT 58824 HISTORY: Trauma COMPARISONS: None . FINDINGS: Fracture (s) and/or Dislocation(s): None . Joint space(s): Normal . Soft tissues: Normal . Bone mineralization: Normal . Foreign bodies: None . IMPRESSION: Normal Examination . This document is electronically signed by Rowdy Garcia MD., November 25 2018 11:38:43 PM ET
[2018-11-26] MEDS: TRADJENTA PO SCH (09:13)
[2018-11-26] MEDS: PROCARDIA XL PO SCH (09:13)
[2018-11-26] MEDS: COZAAR PO SCH (09:13)
[2018-11-26] MEDS: ASPIRIN PO SCH (09:13)
[2018-11-26] MEDS: HumaLOG SUB-Q SCH ×4 (09:14→22:40)
[2018-11-26] MEDS: NON-FORMULARY (Brimonidine Tartrate [Brimonidine Tartrate 0.2%] 1 DROP) OU SCH (09:17)
--- NOTE | 2018-11-26 13:23 | Progress Note ---
Assessment and Plan - Patient Problems (1) Hyperkalemia Current Visit: Yes Status: Acute Plan to address problem: Improved at this time with treatment of his hyperglycemia. (2) Uncontrolled diabetes mellitus Current Visit: Yes Status: Chronic Qualifiers: Diabetes mellitus type: type 1 Glycemic state: with hyperglycemia Qualified Code(s): E10.65 - Type 1 diabetes mellitus with hyperglycemia Plan to address problem: DM management per primary attending. (3) Altered mental status Current Visit: Yes Status: Acute Qualifiers: Altered mental status type: unspecified Qualified Code(s): R41.82 - Altered mental status, unspecified Plan to address problem: Improved at this time back to baseline. 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 Recommended to patient that he follow up with nephrology through the [facility], where he gets his medical care. 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 Subjective Date of service: 11/26/18 Interval history: No acute complaints this am. Labs noted and renal function improving back to his baseline. Objective - Vital Signs Vital signs: Vital Signs - 12hr 11/26/18 11/26/18 11/26/18 04:49 10:45 12:50 Temperature 97.8 F 97.7 F Pulse Rate 57 L 65 68 Respiratory 19 18 18 Rate Blood Pressure 140/69 152/58 Blood Pressure 140/65 [Left] O2 Sat by Pulse 96 100 99 Oximetry 11/26/18 12:51 Temperature 98.6 F Pulse Rate Respiratory Rate Blood Pressure Blood Pressure [Left] O2 Sat by Pulse Oximetry - General Appearance General appearance: well-developed, well-nourished, appears stated age EENT: ATNC, PERRL Neck: no JVD, no thyromegaly Respiratory: Present: Clear to Ascultation, Normal Exam Cardiology: regular Gastrointestinal: normal, normoactive bowel sounds Integumentary: no rash, warm and dry Neurologic: no focal deficit, no asterixis, alert and oriented x3 Musculoskeletal: other (-edema ) Psychiatric: mood/affect appropriate, cooperative - Lab 11/24/18 15:02 11/25/18 04:43 Most recent lab results Calcium 8.8 mg/dL (8.4-10.2) 11/25/18 04:43 - Allied health notes Allied health notes reviewed: nursing Medications & Allergies - Medications Allergies/Adverse Reactions: Allergies trimethobenzamide [From Tigan] Allergy (Verified 11/24/18 14:41) Unknown Home Medications: Home Medications Medication Instructions Recorded Confirmed Last Taken Type Aspirin [Aspirin TAB] 325 mg PO DAILY 11/24/18 11/24/18 Unknown History Brimonidine Tartrate [Brimonidine 1 drop OU BID 11/24/18 11/24/18 Unknown History Tartrate 0.2%] Cholecalciferol Vit D3 [Vitamin D3 2,000 unit PO BID 11/24/18 11/24/18 Unknown History 1,000 UNIT TAB] Ergocalciferol (Vitamin D2) 50,000 unit PO QWEEK 11/24/18 11/24/18 Unknown H istory [Drisdol] Ezetimibe [Zetia] 7.5 mg PO QDAY 11/24/18 11/24/18 11/23/18 History Insulin Detemir [Levemir VIAL] 40 units SUB-Q HS 11/24/18 11/24/18 11/23/18 History Lispro Insulin [Humalog] 15 unit SQ ACHS 11/24/18 11/24/18 11/24/18 History Losartan [Cozaar] 100 mg PO DAILY 11/24/18 11/24/18 Unknown History NIFEdipine [Adalat cc] 90 mg PO DAILY 11/24/18 11/24/18 Unknown History Rosuvastatin Calcium [Crestor] 40 mg PO DAILY 11/24/18 11/24/18 Unknown History Saxagliptin HCl [Onglyza] 5 mg PO DAILY 11/24/18 11/24/18 Unknown History Active Medications: Generic Name Dose Route Start Last Admin Trade Name Freq PRN Reason Stop Dose Admin Acetaminophen 650 mg 11/24/18 18:20 11/25/18 16:34 Tylenol PO 650 mg Q4H PRN Administration Pain, Mild (1-3) Albuterol 2.5 mg 11/24/18 18:20 Proventil IH Q3HRT PRN Shortness Of Breath Aspirin 325 mg 11/25/18 10:00 11/26/18 09:13 Aspirin PO 325 mg QDAY CHRISTIE Administration Atorvastatin Calcium 80 mg 11/24/18 22:00 11/25/18 21:43 Lipitor PO 80 mg QHS CHRISTIE Administration Bisacodyl 10 mg 11/24/18 18:20 Dulcolax [place] QDAY PRN Constipation Ergocalciferol 50,000 unit 12/01/18 10:00 Vitamin D2 PO Th [facility] Insulin Human Lispro 0 unit 11/25/18 07:30 11/26/18 12:59 Humalog SUB-Q 4 unit ACHS CHRISTIE Administration Protocol Linagliptin 5 mg 11/25/18 10:00 11/26/18 09:13 Tradjenta PO 5 mg QDAY [facility]STIE Administration Losartan Potassium 100 mg 11/25/18 10:00 11/26/18 09:13 Cozaar PO 100 mg QDAY [facility]STIE Administration Magnesium Hydroxide 30 ml 11/24/18 18:20 Milk Of Magnesia PO Q4H PRN Constipation Metoclopramide HCl 10 mg 11/24/18 18:20 Reglan PO Q6H PRN Nausea And Vomiting Miscellaneous Medication 1 drop 11/24/18 22:00 11/26/18 09:17 Brimonidine Tartrate [Brimonidine Tartrate 0.2%] OU 1 drop BID [facility]RISTIE Administration Nifedipine 90 mg 11/25/18 10:00 11/26/18 09:13 Procardia Xl PO 90 mg QDAY [facility]IE Administration Ondansetron HCl 4 mg 11/24/18 18:20 Zofran IV Q8H PRN Nausea And Vomiting Oxycodone/Acetaminophen 2 tab 11/25/18 22:44 Percocet 5/325 PO Q4H PRN Pain, Moderate (4-6) Promethazine HCl 25 mg 11/24/18 18:20 Phenergan AL Q6H PRN Nausea And Vomiting Sodium Chloride 10 ml 11/24/18 18:20 Sodium Chloride Flush Syringe 10 Ml IV PRN PRN LINE FLUSH
[2018-11-26] MEDS: PERCOCET 5/325 PO PRN (14:04)
--- NOTE | 2018-11-26 17:26 | Progress Note ---
Assessment and Plan (1) CVA (cerebral vascular accident) Current Visit: Yes Status: Acute Qualifiers: Precerebral and cerebral artery: posterior cerebral artery Plan to address problem: MRI lacunar infarct in the basal ganglia on the left side MRI is normal Ejection fraction is 25-30% Carotid duplex scan is no significant obstruction (2) Encephalopathy Current Visit: Yes Status: Acute Plan to address problem: Improved (3) Hyperkalemia Current Visit: Yes Status: Acute Plan to address problem: Improved 4,Type 2 diabetes Continue Januvia and coverage (5) DVT prophylaxis Current Visit: Yes Status: Acute Plan to address problem: SCD to BLE while in bed. Subjective Date of service: 11/26/18 Principal diagnosis: L CVA Interval history: Improved power Objective - Constitutional Vitals: Vital Signs - 12hr 11/26/18 11/26/18 11/26/18 10:45 12:50 12:51 Temperature 97.7 F 98.6 F Pulse Rate 65 68 Respiratory 18 18 Rate Blood Pressure 152/58 Blood Pressure 140/65 [Left] O2 Sat by Pulse 100 99 Oximetry 11/26/18 11/26/18 15:59 16:00 Temperature 98.2 F Pulse Rate 60 Respiratory 18 Rate Blood Pressure 114/53 Blood Pressure [Left] O2 Sat by Pulse 98 Oximetry General appearance: Present: no acute distress, well-nourished - EENT Eyes: PERRL, EOM intact ENT: hearing intact, clear oral mucosa Ears: bilateral: normal - Neck Neck: supple, normal ROM - Respiratory Respiratory effort: normal Respiratory: bilateral: CTA - Breasts Breasts: normal - Cardiovascular Rhythm: regular Heart Sounds: Present: S1 & S2. Absent: gallop, rub Extremities: pulses intact, No edema, normal color, Full ROM - Gastrointestinal General gastrointestinal: Present: soft, non-tender, non-distended, normal bowel sounds - Genitourinary Male genitourinary: normal - Integumentary Integumentary: clear, warm, dry - Musculoskeletal Musculoskeletal: 1, strength equal bilaterally - Neurologic Neurologic: moves all extremities - Psychiatric Psychiatric: memory intact, appropriate mood/affect, intact judgment & insight - Labs CBC & Chem 7: 11/24/18 15:02 11/25/18 04:43 Labs: Abnormal lab results 11/25/18 11/25/18 11/26/18 Range/Units 17:41 20:49 08:00 POC Glucose 280 H 354 H 258 H (70-105) 11/26/18 Range/Units 12:50 POC Glucose 243 H (70-105)
[2018-11-27] MEDS: PERCOCET 5/325 PO PRN (00:02)
[2018-11-27] MEDS: COZAAR PO SCH (09:28)
[2018-11-27] MEDS: ASPIRIN PO SCH (09:28)
[2018-11-27] MEDS: TRADJENTA PO SCH (09:28)
[2018-11-27] MEDS: HumaLOG SUB-Q SCH (09:31)
[2018-11-27] MEDS: PROCARDIA XL PO SCH (09:32)
[2018-11-27 12:48] VITALS: BP 128/61
--- NOTE | 2018-11-27 13:06 | Progress Note ---
Assessment and Plan - Patient Problems (1) Hyperkalemia Current Visit: Yes Status: Acute Plan to address problem: Improved at this time with treatment of his hyperglycemia. (2) Uncontrolled diabetes mellitus Current Visit: Yes Status: Chronic Qualifiers: Diabetes mellitus type: type 1 Glycemic state: with hyperglycemia Qualified Code(s): E10.65 - Type 1 diabetes mellitus with hyperglycemia Plan to address problem: DM management per primary attending. (3) Altered mental status Current Visit: Yes Status: Acute Qualifiers: Altered mental status type: unspecified Qualified Code(s): R41.82 - Altered mental status, unspecified Plan to address problem: Improved at this time back to baseline. 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 Recommended to patient that he follow up with nephrology through the [facility], where he gets his medical care. From a renal standpoint patient is stable for WI. (5) Hypertensive chronic kidney disease with stage 1 through stage 4 chronic kidney disease, or unspecified chronic kidney disease Current Visit: Yes Status: Chronic Plan to address problem: Continue on current regimen, with close monitoring of his blood pressures. Subjective Date of service: 11/27/18 Interval history: No acute changes overnight. Eating lunch this afternoon. Family at bedside. Per , patient has a appointment tomorrow with endocrinology at the [facility]. Objective - Vital Signs Vital signs: Vital Signs - 12hr 11/27/18 11/27/18 11/27/18 04:22 09:30 09:32 Temperature 97.4 F L 97.4 F L Pulse Rate 50 L 67 Respiratory 14 18 Rate Blood Pressure 111/55 133/70 O2 Sat by Pulse 95 96 Oximetry 11/27/18 12:46 Temperature 98.3 F Pulse Rate 75 Respiratory 18 Rate Blood Pressure 128/61 O2 Sat by Pulse 95 Oximetry - General Appearance General appearance: well-developed, well-nourished, appears stated age EENT: ATNC, PERRL Neck: no JVD, no thyromegaly Respiratory: Present: Clear to Ascultation Cardiology: regular, S1S2 Gastrointestinal: normal, normoactive bowel sounds Integumentary: no rash, warm and dry Neurologic: no focal deficit, no asterixis, alert and oriented x3 Psychiatric: mood/affect appropriate, cooperative - Lab 11/24/18 15:02 11/25/18 04:43 Most recent lab results Calcium 8.8 mg/dL (8.4-10.2) 11/25/18 04:43 - Allied health notes Allied health notes reviewed: nursing Medications & Allergies - Medications Allergies/Adverse Reactions: Allergies trimethobenzamide [From Tigan] Allergy (Verified 11/24/18 14:41) Unknown Home Medications: Home Medications Medication Instructions Recorded Confirmed Last Taken Type Aspirin [Aspirin TAB] 325 mg PO DAILY 11/24/18 11/24/18 Unknown History Brimonidine Tartrate [Brimonidine 1 drop OU BID 11/24/18 11/24/18 Unknown History Tartrate 0.2%] Cholecalciferol Vit D3 [Vitamin D3 2,000 unit PO BID 11/24/18 11/24/18 Unknown History 1,000 UNIT TAB] Ergocalciferol (Vitamin D2) 50,000 unit PO QWEEK 11/24/18 11/24/18 Unknown History [Drisdol] Ezetimibe [Zetia] 7.5 mg PO QDAY 11/24/18 11/24/18 11/23/18 History Insulin Detemir [Levemir VIAL] 40 units SUB-Q HS 11/24/18 11/24/18 11/23/18 History Lispro Insulin [Humalog] 15 unit SQ ACHS 11/24/18 11/24/18 11/24/18 History Losartan [Cozaar] 100 mg PO DAILY 11/24/18 11/24/18 Unknown History NIFEdipine [Adalat cc] 90 mg PO DAILY 11/24/18 11/24/18 Unknown History Rosuvastatin Calcium [Crestor] 40 mg PO DAILY 11/24/18 11/24/18 Unknown History Saxagliptin HCl [Onglyza] 5 mg PO DAILY 11/24/18 11/24/18 Unknown History Active Medications: Generic Name Dose Route Start Last Admin Trade Name Freq PRN Reason Stop Dose Admin Acetaminophen 650 mg 11/24/18 18:20 11/25/18 16:34 Tylenol PO 650 mg Q4H PRN Administration Pain, Mild (1-3) Albuterol 2.5 mg 11/24/18 18:20 Proventil IH Q3HRT PRN Shortness Of Breath Aspirin 325 mg 11/25/18 10:00 11/27/18 09:28 Aspirin PO 325 mg QDAY [facility]RISTIE Administration Atorvastatin Calcium 80 mg 11/24/18 22:00 11/26/18 22:40 Lipitor PO 80 mg QHS CHRISTIE Administration Bisacodyl 10 mg 11/24/18 18:20 Dulcolax [place] QDAY PRN Constipation Ergocalciferol 50,000 unit 12/01/18 10:00 Vitamin D2 PO [facility] Insulin Human Lispro 0 unit 11/25/18 07:30 11/27/18 09:31 Humalog SUB-Q 3 unit ACHS CHRISTIE Administration Protocol Linagliptin 5 mg 11/25/18 10:00 11/27/18 09:28 Tradjenta PO 5 mg QDAY [facility] Administration Losartan Potassium 100 mg 11/25/18 10:00 11/27/18 09:28 Cozaar PO 100 mg QDAY [facility] Administration Magnesium Hydroxide 30 ml 11/24/18 18:20 Milk Of Magnesia PO Q4H PRN Constipation Metoclopramide HCl 10 mg 11/24/18 18:20 Reglan PO Q6H PRN Nausea And Vomiting Miscellaneous Medication 1 drop 11/24/18 22:00 11/26/18 09:17 Brimonidine Tartrate [Brimonidine Tartrate 0.2%] OU 1 drop BID [facility]STIE Administration Nifedipine 90 mg 11/25/18 10:00 11/27/18 09:32 Procardia Xl PO 90 mg QDAY [facility] Administration Ondansetron HCl 4 mg 11/24/18 18:20 Zofran IV Q8H PRN Nausea And Vomiting Oxycodone/Acetaminophen 2 tab 11/25/18 22:44 11/27/18 00:02 Percocet 5/325 PO 2 tab Q4H PRN Administration Pain, Moderate (4-6) Promethazine HCl 25 mg 11/24/18 18:20 Phenergan [place] Q6H PRN Nausea And Vomiting Sodium Chloride 10 ml 11/24/18 18:20 Sodium Chloride Flush Syringe 10 Ml IV PRN PRN LINE FLUSH
--- NOTE | 2018-11-27 13:43 | Discharge Summary ---
Providers - Providers Date of Admission: 11/24/18 18:20 Date of discharge: 11/27/18 Attending physician: ROMINA ORONA 11/24/18 17:00 Consult to Physician [CONS] Routine Comment: Consulting Provider: SUKHWINDER ROLLINS Physician Instructions: Reason For Exam: hyperkalemia 11/24/18 18:20 Occupational Therapy Evaluate and Treat [CONS] Routine Comment: Reason For Exam: Neuro deficits Physical Therapy Evaluation and Treat [CONS] Routine Comment: Reason For Exam: Neuro deficits Speech Therapy Evaluation and Treat [CONS] Routine Reason For Exam: swallow eval 11/24/18 18:22 Consult to Physician [CONS] Routine Comment: Consulting Provider: EDYTA JC Physician Instructions: Reason For Exam: cva Primary care physician: MELISSA CARROLL Hospitalization Condition: Serious Pertinent studies: Brain MRI IMPRESSION: 1.5 cm area of subacute ischemia in the left anterior basal ganglia. Volume loss. Chronic white matter changes. Chronic bilateral occipital infarcts MRA neg EcHO EF 25 to 30 percent CDS Nl. Hospital course: (1) CVA (cerebral vascular accident) Current Visit: Yes Status: Acute Qualifiers: Precerebral and cerebral artery: posterior cerebral artery Plan to address problem: MRA Basal infarct Able to walk Good recovery (2) Encephalopathy Current Visit: Yes Status: Acute Plan to address problem: Improved (3) Hyperkalemia Current Visit: Yes Status: Acute Plan to address problem: Improved (4) DVT prophylaxis Current Visit: Yes Status: Acute Plan to address problem: SCD to BLE while in bed. Disposition: DC-01 TO HOME OR SELFCARE Core Measure Documentation - Palliative Care Palliative Care/ Comfort Measures: Not Applicable - Core Measures Any of the following diagnoses?: none Exam - Constitutional Vitals: Temp Pulse Resp BP Pulse Ox 98.3 F 75 18 128/61 95 11/27/18 12:46 11/27/18 12:46 11/27/18 12:46 11/27/18 12:46 11/27/18 12:46 General appearance: Present: no acute distress, well-nourished - EENT Eyes: Present: PERRL ENT: hearing intact, clear oral mucosa - Neck Neck: Present: supple, normal ROM - Respiratory Respiratory effort: normal Respiratory: bilateral: CTA - Cardiovascular Heart rate: 68 Rhythm: regular Heart Sounds: Present: S1 & S2. Absent: rub, click - Extremities Extremities: no ischemia, pulses intact, pulses symmetrical, No edema Peripheral Pulses: within normal limits - Abdominal General gastrointestinal: Present: soft, non-tender, non-distended, normal bowel sounds Male genitourinary: Present: normal - Integumentary Integumentary: Present: clear, warm, dry - Musculoskeletal Musculoskeletal: gait normal, strength equal bilaterally - Psychiatric Psychiatric: appropriate mood/affect, intact judgment & insight - Neurologic Neurologic: CNII-XII intact, moves all extremities Plan Activity: no restrictions Diet: low fat, low cholesterol, low salt Follow up with: MELISSA CARROLL MD [Primary Care Provider] - 3-5 Days DARNELL SANCHEZ MD [Staff Physician] - 7 Days
[2018-12-01] MEDS ORDERED: VITAMIN D2 PO SCH (10:00)
== END 2018-11-27 16:45 | disposition home or self-care (01) | DRG 65 ==
LOC: ED 14:40 → 4A 18:20
PROVIDERS: ADMIT Internal Medicine; ATTEND Internal Medicine
DX: I63.9 Cerebral infarction, unspecified (principal); G93.40 Encephalopathy, unspecified; E87.5 Hyperkalemia; E11.65 Type 2 diabetes mellitus with hyperglycemia; I12.9 Hypertensive chronic kidney disease with stage 1 through stage 4 chronic kidney disease, or unspecified chronic kidney disease; N18.3 Chronic kidney disease, stage 3 (moderate); E11.22 Type 2 diabetes mellitus with diabetic chronic kidney disease; I25.10 Atherosclerotic heart disease of native coronary artery without angina pectoris; R47.81 Slurred speech; Z79.82 Long term (current) use of aspirin; Z79.899 Other long term (current) drug therapy; Z79.4 Long term (current) use of insulin; Z95.1 Presence of aortocoronary bypass graft; Z82.49 Family history of ischemic heart disease and other diseases of the circulatory system; Z72.89 Other problems related to lifestyle
CPT/HCPCS: 36415; 70450; 70544; 70551; 80048; 80053; 80061; 80307; 80320; 81001; 82140; 82805; 82962; 84439; 84443; 84484; 85025; 93005; 93010; 93306; 93880; 94640; 96365; 96375; G0378; A9270-GY; G0480; J0610; J1815; J2270

== ENCOUNTER 2021-07-03 05:19 | Inpatient (IN) | payer MEDICARE, OTHER ==
[2021-07-03] MEDS ORDERED: ACETAMINOPHEN 650 MG RECT SUPP PR ONE (05:39)
[2021-07-03] MEDS ORDERED: SODIUM CHLORIDE 0.9% 500 ML 500 ML IV ONE (06:05)
[2021-07-03] MEDS ORDERED: SODIUM CHLORIDE 0.9% 1000 ML IV SOLN IV ONE (06:15)
[2021-07-03] MEDS ORDERED: cefTRIAXone/NS 2 GM/100 ML 2 GM/100 ML BAG IV ONE (06:15)
[2021-07-03] MEDS ORDERED: ONDANSETRON 4 MG/2 ML INJ IV ONE (06:20)
--- NOTE | 2021-07-03 06:20 | Emergency Department Report ---
HPI - General Chief Complaint: Fever - HPI HPI: 80-year-old -[place] Citizen male presents to the emergency department via EMS from home with complaint of a fever and shaking that started this morning. Patient has a past medical history of CVA with residual left-sided deficits, coronary artery disease status post CABG, hypertension, diabetes, and appears to have some level of dementia. The patient's is at bedside providing all information and she says that the patient does not ambulate at baseline, but usually is verbal and conversive. Some days the patient is AAO x3, and sometimes he has some confusion. No recent travel or sick contacts at home. The patient is vaccinated against COVID-19. A code sepsis has been initiated. ED Past Medical Hx - Past Medical History Hx Hypertension: Yes Hx CVA: Yes Hx Diabetes: Yes Hx Renal Disease: Yes Hx Seizures: Yes Additional medical history: hyperlipidemia, bypass x3 vessels - Social History Smoking Status: Former Smoker Substance Use Type: None - Medications Home Medications: Home Medications Medication Instructions Recorded Confirmed Last Taken Type Losartan [Cozaar] 25 mg PO DAILY 11/24/18 10/11/19 Unknown History Rosuvastatin Calcium [Crestor] 40 mg PO DAILY 11/24/18 10/11/19 Unknown History Clopidogrel Bisulfate [Plavix] 75 mg PO QDAY #30 tablet 11/27/18 10/11/19 Unknown Rx Insulin Glargine [Lantus VIAL] 0 units SUB-Q QHS 10/11/19 10/11/19 Unknown History Metoprolol Succinate 25 mg PO DAILY 10/11/19 10/11/19 Unknown History Pantoprazole [Protonix] 40 mg PO QDAY 10/11/19 10/11/19 Unknown History levETIRAcetam [Keppra TAB] 500 mg PO BID 10/11/19 10/11/19 Unknown History ED Review of Systems ROS: Stated complaint: FEVER,SHAKING,VOMITING Other details as noted in HPI Comment: Unobtainable due to pts medical conditions Physical Exam - Physical Exam Vital Signs: Vital Signs 07/03/21 05:33 Temperature 103.2 F H Pulse Rate 113 H Respiratory 20 Rate Blood Pressure 114/69 [Left] O2 Sat by Pulse 96 Oximetry Physical Exam: GENERAL: The patient is ill-appearing. HENT: Normocephalic. Atraumatic. Patient has moist mucous membranes. EYES: Extraocular motions are intact. Pupils equal reactive to light bilaterally. NECK: Supple. Trachea is midline. CHEST/LUNGS: Clear to auscultation. There is tachypnea but no accessory muscle use. There is no respiratory distress noted. HEART/CARDIOVASCULAR: Regular. There is mild to moderate tachycardia. There is no murmur. ABDOMEN: Abdomen is soft, nontender. Patient has normal bowel sounds. There is no abdominal distention. SKIN: Skin is warm and dry. NEURO: The patient is awake, but nonverbal. Not following commands. Withdraws from painful stimuli. MUSCULOSKELETAL: There is no tenderness or deformity. ED Course Vital Signs 07/03/21 05:33 Temperature 103.2 F H Pulse Rate 113 H Respiratory 20 Rate Blood Pressure 114/69 [Left] O2 Sat by Pulse 96 Oximetry - Consultations Consultation #1: 07/03/21 10:24 I spoke with TEJA Saldivar for [facility] cardiology regarding the patient's elevated troponin levels. They will continue to follow the patient as his UTI sepsis is treated and will consult on the patient. ED Medical Decision Making - Lab Data Result diagrams: 07/03/21 07:01 07/03/21 07:01 Lab Results 07/03/21 07/03/21 07/03/21 Range/Units 07:01 07:01 07:01 WBC 15.9 H (4.5-11.0) K/mm3 RBC 4.55 (3.65-5.03) M/mm3 Hgb 12.3 (11.8-15.2) gm/dl Hct 37.4 (35.5-45.6) % MCV 82 L (84-94) fl MCH 27 L (28-32) pg MCHC 33 (32-34) % RDW 14.9 (13.2-15.2) % Plt Count 237 (140-440) K/mm3 Add Manual Diff Complete Total Counted 100 Seg Neutrophils % Applied [employer] Professor Seg Neuts % (Manual) 91.0 H (40.0-70.0) % Band Neutrophils % 6.0 % Lymphocytes % (Manual) 2.0 L (13.4-35.0) % Monocytes % (Manual) 1.0 (0.0-7.3) % Nucleated RBC % Not Reportable Seg Neutrophils # Man 14.5 H (1.8-7.7) K/mm3 Band Neutrophils # 1.0 K/mm3 Lymphocytes # (Manual) 0.3 L (1.2-5.4) K/mm3 Abs React Lymphs (Man) 0.0 K/mm3 Monocytes # (Manual) 0.2 (0.0-0.8) K/mm3 Eosinophils # (Manual) 0.0 (0.0-0.4) K/mm3 Basophils # (Manual) 0.0 (0.0-0.1) K/mm3 Metamyelocytes # 0.0 K/mm3 Myelocytes # 0.0 K/mm3 Promyelocytes # 0.0 K/mm3 Blast Cells # 0.0 K/mm3 WBC Morphology Not Reportable Hypersegmented Neuts Not Reportable Hyposegmented Neuts Not Reportable Hypogranular Neuts Not Reportable Smudge Cells Not Reportable Toxic Granulation Not Reportable Toxic Vacuolation Not Reportable Dohle Bodies Not Reportable Pelger-Huet Anomaly Not Reportable Yasir Rods Not Reportable Platelet Estimate Cons Clumped Platelets Not Reportable Plt Clumps, EDTA Not Reportable Large Platelets 1+ Giant Platelets Not Reportable Platelet Satelliting Not Reportable Plt Morphology Comment Not Reportable RBC Morphology Not Reportable Dimorphic RBCs Not Reportable Polychromasia Not Reportable Hypochromasia 1+ Poikilocytosis Not Reportable Anisocytosis Not Reportable Microcytosis Not Reportable Macrocytosis Not Reportable Spherocytes Not Reportable Pappenheimer Bodies Not Reportable Sickle Cells Not Reportable Target Cells Not Reportable Tear Drop Cells Not Reportable Ovalocytes 1+ Helmet Cells Not Reportable Levy-Brandon Bodies Not Reportable [place] Rings Not Reportable Simi Cells Not Reportable Bite Cells Not Reportable Crenated Cell Not Reportable Elliptocytes Not Reportable Acanthocytes (Spur) Not Reportable Rouleaux Not Reportable Hemoglobin C Crystals Not Reportable Schistocytes Not Reportable Malaria parasites Not Reportable Craig Bodies Not Reportable Hem Pathologist Commnt No Sodium 140 (137-145) mmol/L Potassium 4.2 (3.6-5.0) mmol/L Chloride 106.5 (98-107) mmol/L Carbon Dioxide 21 L (22-30) mmol/L Anion Gap 17 mmol/L BUN 28 H (9-20) mg/dL Creatinine 1.6 H (0.8-1.3) mg/dL Estimated GFR 51 ml/min BUN/Creatinine Ratio 18 % Glucose 220 H (75-100) mg/dL Lactic Acid 2.00 (0.7-2.0) mmol/L Calcium 9.6 (8.4-10.2) mg/dL Total Bilirubin 0.80 (0.1-1.2) mg/dL AST 14 (5-40) units/L ALT 14 (7-56) units/L Alkaline Phosphatase 63 (35-129) units/L Ammonia (25-60) umol/L Troponin T (0.00-0.029) ng/mL Total Protein 7.5 (6.3-8.2) g/dL Albumin 3.8 L (3.9-5) g/dL Albumin/Globulin Ratio 1.0 % TSH (0.270-4.200) mlU/mL 07/03/21 07/03/21 07/03/21 Range/Units 07:01 07:01 08:22 WBC (4.5-11.0) K/mm3 RBC (3.65-5.03) M/mm3 Hgb (11.8-15.2) gm/dl Hct (35.5-45.6) % MCV (84-94) fl MCH (28-32) pg MCHC (32-34) % RDW (13.2-15.2) % Plt Count (140-440) K/mm3 Add Manual Diff Total Counted Seg Neutrophils % Seg Neuts % (Manual) (40.0-70.0) % Band Neutrophils % % Lymphocytes % (Manual) (13.4-35.0) % Monocytes % (Manual) (0.0-7.3) % Nucleated RBC % Seg Neutrophils # Man (1.8-7.7) K/mm3 Band Neutrophils # K/mm3 Lymphocytes # (Manual) (1.2-5.4) K/mm3 Abs React Lymphs (Man) K/mm3 Monocytes # (Manual) (0.0-0.8) K/mm3 Eosinophils # (Manual) (0.0-0.4) K/mm3 Basophils # (Manual) (0.0-0.1) K/mm3 Metamyelocytes # K/mm3 Myelocytes # K/mm3 Promyelocytes # K/mm3 Blast Cells # K/mm3 WBC Morphology Hypersegmented Neuts Hyposegmented Neuts Hypogranular Neuts Smudge Cells Toxic Granulation Toxic Vacuolation Dohle Bodies Pelger-Huet Anomaly Yasir Rods Platelet Estimate Clumped Platelets Plt Clumps, EDTA Large Platelets Giant Platelets Platelet Satelliting Plt Morphology Comment RBC Morphology Dimorphic RBCs Polychromasia Hypochromasia Poikilocytosis Anisocytosis Microcytosis Macrocytosis Spherocytes Pappenheimer Bodies Sickle Cells Target Cells Tear Drop Cells Ovalocytes Helmet Cells Levy-Brandon Bodies [place] Rings Simi Cells Bite Cells Crenated Cell Elliptocytes Acanthocytes (Spur) Rouleaux Hemoglobin C Crystals Schistocytes Malaria parasites Craig Bodies Hem Pathologist Commnt Sodium (137-145) mmol/L Potassium (3.6-5.0) mmol/L Chloride (98-107) mmol/L Carbon Dioxide (22-30) mmol/L Anion Gap mmol/L BUN (9-20) mg/dL Creatinine (0.8-1.3) mg/dL Estimated GFR ml/min BUN/Creatinine Ratio % Glucose (75-100) mg/dL Lactic Acid (0.7-2.0) mmol/L Calcium (8.4-10.2) mg/dL Total Bilirubin (0.1-1.2) mg/dL AST (5-40) units/L ALT (7-56) units/L Alkaline Phosphatase (35-129) units/L Ammonia 13.0 L (25-60) umol/L Troponin T 0.097 H (0.00-0.029) ng/mL Total Protein (6.3-8.2) g/dL Albumin (3.9-5) g/dL Albumin/Globulin Ratio % TSH 3.590 (0.270-4.200) mlU/mL 07/03/21 Range/Units 09:32 WBC (4.5-11.0) K/mm3 RBC (3.65-5.03) M/mm3 Hgb (11.8-15.2) gm/dl Hct (35.5-45.6) % MCV (84-94) fl MCH (28-32) pg MCHC (32-34) % RDW (13.2-15.2) % Plt Count (140-440) K/mm3 Add Manual Diff Total Counted Seg Neutrophils % Seg Neuts % (Manual) (40.0-70.0) % Band Neutrophils % % Lymphocytes % (Manual) (13.4-35.0) % Monocytes % (Manual) (0.0-7.3) % Nucleated RBC % Seg Neutrophils # Man (1.8-7.7) K/mm3 Band Neutrophils # K/mm3 Lymphocytes # (Manual) (1.2-5.4) K/mm3 Abs React Lymphs (Man) K/mm3 Monocytes # (Manual) (0.0-0.8) K/mm3 Eosinophils # (Manual) (0.0-0.4) K/mm3 Basophils # (Manual) (0.0-0.1) K/mm3 Metamyelocytes # K/mm3 Myelocytes # K/mm3 Promyelocytes # K/mm3 Blast Cells # K/mm3 WBC Morphology Hypersegmented Neuts Hyposegmented Neuts Hypogranular Neuts Smudge Cells Toxic Granulation Toxic Vacuolation Dohle Bodies Pelger-Huet Anomaly Yasir Rods Platelet Estimate Clumped Platelets Plt Clumps, EDTA Large Platelets Giant Platelets Platelet Satelliting Plt Morphology Comment RBC Morphology Dimorphic RBCs Polychromasia Hypochromasia Poikilocytosis Anisocytosis Microcytosis Macrocytosis Spherocytes Pappenheimer Bodies Sickle Cells Target Cells Tear Drop Cells Ovalocytes Helmet Cells Levy-Brandon Bodies [place] Rings Simi Cells Bite Cells Crenated Cell Elliptocytes Acanthocytes (Spur) Rouleaux Hemoglobin C Crystals Schistocytes Malaria parasites Craig Bodies Hem Pathologist Commnt Sodium (137-145) mmol/L Potassium (3.6-5.0) mmol/L Chloride (98-107) mmol/L Carbon Dioxide (22-30) mmol/L Anion Gap mmol/L BUN (9-20) mg/dL Creatinine (0.8-1.3) mg/dL Estimated GFR ml/min BUN/Creatinine Ratio % Glucose (75-100) mg/dL Lactic Acid 1.90 (0.7-2.0) mmol/L Calcium (8.4-10.2) mg/dL Total Bilirubin (0.1-1.2) mg/dL AST (5-40) units/L ALT (7-56) units/L Alkaline Phosphatase (35-129) units/L Ammonia (25-60) umol/L Troponin T (0.00-0.029) ng/mL Total Protein (6.3-8.2) g/dL Albumin (3.9-5) g/dL Albumin/Globulin Ratio % TSH (0.270-4.200) mlU/mL - EKG Data -: EKG Interpreted by In EKG shows normal: sinus rhythm (PVCs), axis, intervals, QRS complexes, ST-T waves (There is some ST depression to the anterior leads) Rate: tachycardia (116 bpm) - EKG Data When compared to previous EKG there are: changes noted (There are some ST depressions to the anterior leads not seen from previous EKG) Interpretation: other (Sinus tachycardia 116 bpm, PVCs, normal axis, normal intervals, ST depressions to the anterior leads. No ST elevation [place].) - Radiology Data Radiology results: report reviewed CT HEAD WITHOUT CONTRAST INDICATION / CLINICAL INFORMATION: Altered Mental Status, History of prior stroke(s) x 2 years ago.. TECHNIQUE: All CT scans at this location are performed using CT dose reduction for ALARA by means of autom ated exposure control. COMPARISON: Head CT 10/12/2019 FINDINGS: HEMORRHAGE: None. EXTRA-AXIAL SPACES: Normal in size and morphology for the patient's age. VENTRICULAR SYSTEM: Normal in size and morphology for the patient's age. CEREBRAL PARENCHYMA: Chronic bilateral basal ganglia lacunar infarcts, unchanged. Old bilateral occipital lobe infarcts with encephalomalacia, unchanged. Mild microangiopathy. No significant abnormality. No acute territorial infarct. MIDLINE SHIFT OR HERNIATION: None. CEREBELLUM / BRAINSTEM: No significant abnormality. ORBITS: Normal as visualized. SOFT TISSUES of HEAD: No significant abnormality. CALVARIUM: No significant abnormality. PARANASAL SINUSES / MASTOID AIR CELLS: Normal as visualized. ADDITIONAL FINDINGS: None. IMPRESSION: 1. No acute intracranial abnormality. 2. Chronic bilateral occipital lobe infarcts and chronic bilateral basal ganglia lacunar infarcts, unchanged CHEST 1 VIEW 07/03/2021 6:10 AM INDICATION / CLINICAL INFORMATION: fever, sepsi s. COMPARISON: 10/11/2019 FINDINGS: SUPPORT DEVICES: None. HEART / MEDIASTINUM: Sternotomy. Cardiac silhouette normal in size. LUNGS / PLEURA: No significant pulmonary or pleural abnormality. No pneumothorax. ADDITIONAL FINDINGS: Moderate gaseous distention of stomach without NG tube IMPRESSION: 1. No acute findings. - Medical Decision Making This patient presents to the emergency department with a fever of 103 F, some shaking/chills, and altered mental status. The patient does have a history of dementia but is currently nonverbal. CT of the head without contrast does not show any hemorrhage, large vessel occlusion, or any other acute process. Chest x-ray does not show any pneumonia, pleural effusions, or any other acute process. Labs are remarkable for a leukocytosis of 16,000, mild CHRIS, elevated troponin level and a urinary tract infection. The UTI is most likely the reason for the patient's fever and with the source the patient is positive has sepsis. Blood and urine cultures have been sent. The patient has been started on IV antibiotics. He has received the 30 cc/kg bolus. The patient will be admitted to the hospital for further evaluation and treatment and was accepted for admission by the hospitalist service. Critical care attestation.: If time is entered above; I have spent that time in minutes in the direct care of this critically ill patient, excluding procedure time. ED Disposition Clinical Impression: Elevated troponin, CHRIS (acute kidney injury) Sepsis Qualifiers: Sepsis type: sepsis due to unspecified organism Sepsis acute organ dysfunction status: unspecified Qualified Code(s): A41.9 - Sepsis, unspecified organism UTI (urinary tract infection) Qualifiers: Urinary tract infection type: acute cystitis Hematuria presence: without hematuria Qualified Code(s): N30.00 - Acute cystitis without hematuria Disposition: ADMITTED INPATIENT Is pt being admited?: Yes Condition: Serious Time of Disposition: 10:10
--- NOTE | 2021-07-03 06:46 | XRay Report ---
CHEST 1 VIEW 07/03/2021 6:10 AM INDICATION / CLINICAL INFORMATION: fever, sepsis. COMPARISON: 10/11/2019 FINDINGS: SUPPORT DEVICES: None. HEART / MEDIASTINUM: Sternotomy. Cardiac silhouette normal in size. LUNGS / PLEURA: No significant pulmonary or pleural abnormality. No pneumothorax. ADDITIONAL FINDINGS: Moderate gaseous distention of stomach without NG tube IMPRESSION: 1. No acute findings. Signer Name: Mendoza Caruso MD Signed: 07/03/2021 6:42 AM Workstation Name: [id number]
--- NOTE | 2021-07-03 07:16 | Cat Scan Report ---
CT HEAD WITHOUT CONTRAST INDICATION / CLINICAL INFORMATION: Altered Mental Status, History of prior stroke(s) x 2 years ago.. TECHNIQUE: All CT scans at this location are performed using CT dose reduction for ALARA by means of automated e xposure control. COMPARISON: Head CT 10/12/2019 FINDINGS: HEMORRHAGE: None. EXTRA-AXIAL SPACES: Normal in size and morphology for the patient's age. VENTRICULAR SYSTEM: Normal in size and morphology for the patient's age. CEREBRAL PARENCHYMA: Chronic bilateral basal ganglia lacunar infarcts, unchanged. Old bilateral occip ital lobe infarcts with encephalomalacia, unchanged. Mild microangiopathy. No significant abnormality . No acute territorial infarct. MIDLINE SHIFT OR HERNIATION: None. CEREBELLUM / BRAINSTEM: No significant abnormality. ORBITS: Normal as visualized. SOFT TISSUES of HEAD: No significant abnormality. CALVARIUM: No significant abnormality. PARANASAL SINUSES / MASTOID AIR CELLS: Normal as visualized. ADDITIONAL FINDINGS: None. IMPRESSION: 1. No acute intracranial abnormality. 2. Chronic bilateral occipital lobe infarcts and chronic bilateral basal ganglia lacunar infarcts, un changed Signer Name: Mendoza Caruso MD Signed: 07/03/2021 7:11 AM Workstation Name: [id number]
[2021-07-03 07:20] LABS: Hematocrit 37.4 % (35.5-45.6); Hemoglobin 12.3 gm/dl (11.8-15.2); Mean Corpuscular HGB Conc 33 % (32-34); Mean Corpuscular Volume 82 fl (84-94); Platelet Count 237 K/mm3 (140-440); Red Blood Count 4.55 M/mm3 (3.65-5.03); Red Cell Distribution Width 14.9 % (13.2-15.2)
[2021-07-03 07:36] LABS: Albumin 3.8 g/dL (3.9-5); Calcium 9.6 mg/dL (8.4-10.2)
[2021-07-03 09:47] LABS: Amphetamine Screen,Urine Negative; Benzodiazepines Screen,Urine Negative; Cannabinoid Screen,Urine Negative; Cocaine Screen,Urine Negative; Methadone Screen,Urine Negative; Opiate Screen,Urine Negative
[2021-07-03 09:59] LABS: Bacteria,Urine 1+ /HPF (Negative); Bilirubin,Urine NEG (Negative); Blood,Urine MOD (Negative); Color,Urine Yellow (Yellow); Urobilinogen,Urine < 2.0 mg/dL (<2.0)
[2021-07-03] MEDS ORDERED: ASPIRIN 300 MG RECT SUPP PR ONE (10:03)
[2021-07-03 10:10] LABS: Hypochromasia 1+; Large Platelets 1+; Ovalocytes 1+; Platelet Estimate Cons; Total Cells Counted 100
--- NOTE | 2021-07-03 10:17 | History and Physical Report ---
History of Present Illness Date of examination: 07/03/21 Date of admission: 07/03/21 Chief complaint: AMS History of present illness: 80-year-old -[place] male with a h/o CHF, CAD s/p CABG (~2008), CKD, HTN, DM2, and CVA w/residual left-sided deficits, fully vaccinated against COVID-19 presents to the emergency department via EMS from home with complaint of a fever, chills and AMS that started this morning. The patient's who was at bedside providing all information and she stated that the patient does not ambulate at baseline, but usually is verbal and conversive. In the ER patient noted to have CHRIS, UA was suggestive for UTI, and elevated troponin. Patient placed on empiric antibiotic, consulted cardiology and admitted to the hospital for further evaluation and management. Past History Past Medical History: CAD, diabetes, hypertension, renal failure, stroke, other (CMP) Past Surgical History: CABG. denies: PTCA Social history: , lives with family. denies: smoking, alcohol abuse Review of System: Limited due to dementia Constitutional: + fever, + chills, no weight loss Ears, eyes, nose, mouth and throat: no nasal congestion, no nasal discharge, no sinus pressure, no vision change, no red eye. Neck: No neck pain or rigidity. Cardiovascular: No chest pain, no orthopnea, no palpitations, no leg swelling Respiratory: No shortness of breath, no cough, no congestion, no wheezing Gastrointestinal: no abdominal pain, no nausea, no vomiting Genitourinary : no dysuria, no hematuria Musculoskeletal: no joint swelling or muscle ache Integumentary: no rash, no pruritis Neurological: no parathesias, no numbness, no tingling Endocrine: no cold or heat intolerance, no polyuria or polydipsia Hematologic/Lymphatic: no easy bruising, no easy bleeding, no gland swelling Allergic/Immunologic: no urticaria, no angioedema. Medications and Allergies Allergies Allergy/AdvReac Type Severity Reaction Status Date / Time diphenhydramine Allergy Hives Verified 07/03/21 05:34 [From Benadryl] trimethobenzamide Allergy Unknown Verified 11/24/18 14:41 [From Tigan] Home Medications Medication Instructions Recorded Confirmed Last Taken Type Rosuvastatin Calcium [Crestor] 40 mg PO DAILY 0307/03/21 07/01/21 History Clopidogrel Bisulfate [Plavix] 75 mg PO QDAY #30 tablet 11/27/18 07/03/21 07/01/21 Rx Metoprolol Succinate 12.5 mg PO DAILY 10/11/19 07/03/21 07/01/21 History Pantoprazole [Protonix] 40 mg PO QDAY 10/11/19 07/03/21 07/01/21 History levETIRAcetam [Keppra TAB] 500 mg PO BID 10/11/19 07/03/21 07/01/21 History Acetaminophen [Tylenol] 500 mg PO Q6HR PRN 07/03/21 07/03/21 07/01/21 History Alogliptin Benzoate [Alogliptin] 25 mg PO QDAY 07/03/21 07/03/21 07/01/21 History Cyanocobalamin (Vitamin B-12) 500 mcg PO QDAY 07/03/21 07/03/21 07/01/21 History [Vitamin B-12] Diclofenac 1% [Diclofenac 1% 2 - 4 gm TP QID 07/03/21 07/03/21 07/01/21 History topical gel] Ergocalciferol (Vitamin D2) 50 mcg PO QDAY 07/03/21 07/03/21 07/01/21 History [Vitamin D2] megestroL [Megestrol] 10 ml PO QDAY 07/03/21 07/03/21 07/01/21 History Exam - Physical Exam Narrative exam: GENERAL: well-developed elderly -[place] male lying on bed appeared to be in no discomfort. HEENT: Normocephalic. Atraumatic. No conjunctival congestion or icterus. Patient has moist mucous membranes. NECK: Supple. Trachea midline. CHEST/LUNGS: Clear to auscultated bilaterally, breathing nonlabored. No wheezes crackles or rhonchi. HEART/CARDIOVASCULAR: Regular in rate and rhythm. S1 and S2 positive. ABDOMEN: Abdomen is soft, nontender. Patient has normal bowel sounds. SKIN: There is no rash. Warm and dry. NEURO: left sided weakness. Follows command. MUSCULOSKELETAL: No joint effusion or tenderness. EXTRIMITY: No edema, no cyanosis or clubbing. PSYCH: Cooperative. - Constitutional Vitals: Temp Pulse Resp BP Pulse Ox 98.7 F 104 H 14 110/47 100 07/03/21 09:35 07/03/21 09:15 07/03/21 09:15 07/03/21 09:15 07/03/21 09:15 HEART Score - HEART Score Troponin: WBC 15.9 K/mm3 (4.5-11.0) H 07/03/21 07:01 RBC 4.55 M/mm3 (3.65-5.03) 07/03/21 07:01 Hgb 12.3 gm/dl (11.8-15.2) 07/03/21 07:01 Hct 37.4 % (35.5-45.6) 07/03/21 07:01 MCV 82 fl (84-94) L 07/03/21 07:01 MCH 27 pg (28-32) L 07/03/21 07:01 MCHC 33 % (32-34) 07/03/21 07:01 RDW 14.9 % (13.2-15.2) 07/03/21 07:01 Plt Count 237 K/mm3 (140-440) 07/03/21 07:01 Add Manual Diff Complete 07/03/21 07:01 Total Counted 100 07/03/21 07:01 Seg Neutrophils % Assembly Line Inspector 07/03/21 07:01 Seg Neuts % (Manual) 91.0 % (40.0-70.0) H 07/03/21 07:01 Band Neutrophils % 6.0 % 07/03/21 07:01 Lymphocytes % (Manual) 2.0 % (13.4-35.0) L 07/03/21 07:01 Monocytes % (Manual) 1.0 % (0.0-7.3) 07/03/21 07:01 Nucleated RBC % Not Reportable 07/03/21 07:01 Seg Neutrophils # Man 14.5 K/mm3 (1.8-7.7) H 07/03/21 07:01 Band Neutrophils # 1.0 K/mm3 07/03/21 07:01 Lymphocytes # (Manual) 0.3 K/mm3 (1.2-5.4) L 07/03/21 07:01 Abs React Lymphs (Man) 0.0 K/mm3 07/03/21 07:01 Monocytes # (Manual) 0.2 K/mm3 (0.0-0.8) 07/03/21 07:01 Eosinophils # (Manual) 0.0 K/mm3 (0.0-0.4) 07/03/21 07:01 Basophils # (Manual) 0.0 K/mm3 (0.0-0.1) 07/03/21 07:01 Metamyelocytes # 0.0 K/mm3 07/03/21 07:01 Myelocytes # 0.0 K/mm3 07/03/21 07:01 Promyelocytes # 0.0 K/mm3 07/03/21 07:01 Blast Cells # 0.0 K/mm3 07/03/21 07:01 WBC Morphology Not Reportable 07/03/21 07:01 Hypersegmented Neuts Not Reportable 07/03/21 07:01 Hyposegmented Neuts Not Reportable 07/03/21 07:01 Hypogranular Neuts Not Reportable 07/03/21 07:01 Smudge Cells Not Reportable 07/03/21 07:01 Toxic Granulation Not Reportable 07/03/21 07:01 Toxic Vacuolation Not Reportable 07/03/21 07:01 Dohle Bodies Not Reportable 07/03/21 07:01 Pelger-Huet Anomaly Not Reportable 07/03/21 07:01 Yasir Rods Not Reportable 07/03/21 07:01 Platelet Estimate Cons 07/03/21 07:01 Clumped Platelets Not Reportable 07/03/21 07:01 Plt Clumps, EDTA Not Reportable 07/03/21 07:01 Large Platelets 1+ 07/03/21 07:01 Giant Platelets Not Reportable 07/03/21 07:01 Platelet Satelliting Not Reportable 07/03/21 07:01 Plt Morphology Comment Not Reportable 07/03/21 07:01 RBC Morphology Not Reportable 07/03/21 07:01 Dimorphic RBCs Not Reportable 07/03/21 07:01 Polychromasia Not Reportable 07/03/21 07:01 Hypochromasia 1+ 07/03/21 07:01 Poikilocytosis Not Reportable 07/03/21 07:01 Anisocytosis Not Reportable 07/03/21 07:01 Microcytosis Not Reportable 07/03/21 07:01 Macrocytosis Not Reportable 07/03/21 07:01 Spherocytes Not Reportable 07/03/21 07:01 Pappenheimer Bodies Not Reportable 07/03/21 07:01 Sickle Cells Not Reportable 07/03/21 07:01 Target Cells Not Reportable 07/03/21 07:01 Tear Drop Cells Not Reportable 07/03/21 07:01 Ovalocytes 1+ 07/03/21 07:01 Helmet Cells Not Reportable 07/03/21 07:01 Levy-Bassett Bodies Not Reportable 07/03/21 07:01 [place] Rings Not Reportable 07/03/21 07:01 Simi Cells Not Reportable 07/03/21 07:01 Bite Cells Not Reportable 07/03/21 07:01 Crenated Cell Not Reportable 07/03/21 07:01 Elliptocytes Not Reportable 07/03/21 07:01 Acanthocytes (Spur) Not Reportable 07/03/21 07:01 Rouleaux Not Reportable 07/03/21 07:01 Hemoglobin C Crystals Not Reportable 07/03/21 07:01 Schistocytes Not Reportable 07/03/21 07:01 Malaria parasites Not Reportable 07/03/21 07:01 Craig Bodies Not Reportable 07/03/21 07:01 Hem Pathologist Commnt No 07/03/21 07:01 Sodium 140 mmol/L (137-145) 07/03/21 07:01 Potassium 4.2 mmol/L (3.6-5.0) 07/03/21 07:01 Chloride 106.5 mmol/L (98-107) 07/03/21 07:01 Carbon Dioxide 21 mmol/L (22-30) L 07/03/21 07:01 Anion Gap 17 mmol/L 07/03/21 07:01 BUN 28 mg/dL (9-20) H 07/03/21 07:01 Creatinine 1.6 mg/dL (0.8-1.3) H 07/03/21 07:01 Estimated GFR 51 ml/min 07/03/21 07:01 BUN/Creatinine Ratio 18 % 07/03/21 07:01 Glucose 220 mg/dL (75-100) H 07/03/21 07:01 Lactic Acid 1.90 mmol/L (0.7-2.0) 07/03/21 09:32 Calcium 9.6 mg/dL (8.4-10.2) 07/03/21 07:01 Total Bilirubin 0.80 mg/dL (0.1-1.2) 07/03/21 07:01 AST 14 units/L (5-40) 07/03/21 07:01 ALT 14 units/L (7-56) 07/03/21 07:01 Alkaline Phosphatase 63 units/L (35-129) 07/03/21 07:01 Ammonia 13.0 umol/L (25-60) L 07/03/21 07:01 Troponin T 0.097 ng/mL (0.00-0.029) H 07/03/21 08:22 Total Protein 7.5 g/dL (6.3-8.2) 07/03/21 07:01 Albumin 3.8 g/dL (3.9-5) L 07/03/21 07:01 Albumin/Globulin Ratio 1.0 % 07/03/21 07:01 TSH 3.590 mlU/mL (0.270-4.200) 07/03/21 07:01 Urine Color Yellow (Yellow) 07/03/21 Unknown Urine Turbidity Slightly-cloudy (Clear) 07/03/21 Unknown Urine pH 7.0 (5.0-7.0) 07/03/21 Unknown Ur Specific [place] 1.010 (1.003-1.030) 07/03/21 Unknown Urine Protein 30 mg/dl mg/dL (Negative) 07/03/21 Unknown Urine Glucose (UA) Neg mg/dL (Negative) 07/03/21 Unknown Urine Ketones Neg mg/dL (Negative) 07/03/21 Unknown Urine Blood Mod (Negative) 07/03/21 Unknown Urine Nitrite Neg (Negative) 07/03/21 Unknown Urine Bilirubin Neg (Negative) 07/03/21 Unknown Urine Urobilinogen < 2.0 mg/dL (<2.0) 07/03/21 Unknown Ur Leukocyte Esterase Lg (Negative) 07/03/21 Unknown Urine WBC (Auto) 123.0 /HPF (0.0-6.0) H 07/03/21 Unknown Urine RBC (Auto) 51.0 /HPF (0.0-6.0) 07/03/21 Unknown U Epithel Cells (Auto) 27.0 /HPF (0-13.0) H 07/03/21 Unknown Urine Bacteria (Auto) 1+ /HPF (Negative) 07/03/21 Unknown Urine Opiates Screen Negative 07/03/21 Unknown Urine Methadone Screen Negative 07/03/21 Unknown Ur Barbiturates Screen Negative 07/03/21 Unknown Ur Phencyclidine Scrn Negative 07/03/21 Unknown Ur Amphetamines Screen Negative 07/03/21 Unknown U Benzodiazepines Scrn Negative 07/03/21 Unknown Urine Cocaine Screen Negative 07/03/21 Unknown U Marijuana (THC) Screen Negative 07/03/21 Unknown Influenza A (Rapid) Negative (Negative) 07/03/21 Unknown Influenza B (Rapid) Negative (Negative) 07/03/21 Unknown Results - Labs CBC & Chem 7: 07/03/21 07:01 07/06/21 07:34 Labs: Abnormal lab results 07/03/21 07/03/21 07/03/21 Range/Units 07:01 07:01 07:01 WBC 15.9 H (4.5-11.0) K/mm3 MCV 82 L (84-94) fl MCH 27 L (28-32) pg Seg Neuts % (Manual) 91.0 H (40.0-70.0) % Lymphocytes % (Manual) 2.0 L (13.4-35.0) % Seg Neutrophils # Man 14.5 H (1.8-7.7) K/mm3 Lymphocytes # (Manual) 0.3 L (1.2-5.4) K/mm3 Carbon Dioxide 21 L (22-30) mmol/L BUN 28 H (9-20) mg/dL Creatinine 1.6 H (0.8-1.3) mg/dL Glucose 220 H (75-100) mg/dL Ammonia 13.0 L (25-60) umol/L Troponin T (0.00-0.029) ng/mL Albumin 3.8 L (3.9-5) g/dL Urine WBC (Auto) (0.0-6.0) /HPF U Epithel Cells (Auto) (0-13.0) /HPF 07/03/21 07/03/21 Range/Units 08:22 Unknown WBC (4.5-11.0) K/mm3 MCV (84-94) fl MCH (28-32) pg Seg Neuts % (Manual) (40.0-70.0) % Lymphocytes % (Manual) (13.4-35.0) % Seg Neutrophils # Man (1.8-7.7) K/mm3 Lymphocytes # (Manual) (1.2-5.4) K/mm3 Carbon Dioxide (22-30) mmol/L BUN (9-20) mg/dL Creatinine (0.8-1.3) mg/dL Glucose (75-100) mg/dL Ammonia (25-60) umol/L Troponin T 0.097 H (0.00-0.029) ng/mL Albumin (3.9-5) g/dL Urine WBC (Auto) 123.0 H (0.0-6.0) /HPF U Epithel Cells (Auto) 27.0 H (0-13.0) /HPF - Imaging and Cardiology Chest x-ray: report reviewed CT Scan - head: report reviewed (Chronic bilateral occipital lobe infarct and chronic bilateral basal ganglia lacunar infarct) Assessment and Plan Acute metabolic encephalopathy UTI with Sepsis CHRIS likely due to vasomotor nephropathy Elevated troponin, likely NSTEMI type II with CHRIS Chronic systolic CHF with EF 30% PUI for COVID-19 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
[2021-07-03] MEDS ORDERED: SODIUM CHLORIDE 0.9% 1000 ML 1,000 ML IV SCH (10:30)
--- NOTE | 2021-07-03 13:38 | Consultation ---
History of Present Illness Consult date: 07/03/21 Requesting physician: LORE SHARMA Consult reason: elevated troponin History of present illness: Pt is a 80-year-old AA male with a hx of CMP, CAD s/p CABG (~2008), CKD, HTN, DM2, and CVA w/residual deficits, who presented for evaluation of altered mental status. HPI obtained from pt's , who reports that pt became increasingly lethargic and confused this AM. He does not ambulate but is usually alert and conversive. She states his only complaint this AM was pain in his legs, which is not new. No reports of chest pain, SOB, or any additional cardiac complaints. Cardiology has been consulted for evaluation of elevated troponin. Initial trop 0.097, though notably in the setting of sepsis and CHRIS. Upon assessment, pt states "I hurt all over." ECG reveals sinus rhythm with PVCs and non-specific ST/T wave abnormality, no acute ischemic changes. Echo 11/2018 - EF 25-30%, impaired relaxation. No previous ischemic eval on file. [facility] Past History Past Medical History: CAD, diabetes, hypertension, renal failure, stroke, other (CMP) Past Surgical History: CABG. denies: PTCA Social history: , lives with family. denies: smoking, alcohol abuse Medications and Allergies Allergies Allergy/AdvReac Type Severity Reaction Status Date / Time diphenhydramine Allergy Hives Verified 07/03/21 05:34 [From Benadryl] trimethobenzamide Allergy Unknown Verified 11/24/18 14:41 [From Tigan] Home Medications Medication Instructions Recorded Confirmed Last Taken Type Rosuvastatin Calcium [Crestor] 40 mg PO DAILY 11/24/18 07/03/21 07/01/21 History Clopidogrel Bisulfate [Plavix] 75 mg PO QDAY #30 tablet 11/27/18 07/03/21 07/01/21 Rx Metoprolol Succinate 12.5 mg PO DAILY 10/11/19 07/03/21 07/01/21 History Pantoprazole [Protonix] 40 mg PO QDAY 10/11/19 07/03/21 07/01/21 History levETIRAcetam [Keppra TAB] 500 mg PO BID 10/11/19 07/03/21 07/01/21 History Acetaminophen [Tylenol] 500 mg PO Q6HR PRN 07/03/21 07/03/21 07/01/21 History Alogliptin Benzoate [Alogliptin] 25 mg PO QDAY 07/03/21 07/03/21 07/01/21 History Cyanocobalamin (Vitamin B-12) 500 mcg PO QDAY 07/03/21 07/03/21 07/01/21 History [Vitamin B-12] Diclofenac 1% [Diclofenac 1% 2 - 4 gm TP QID 07/03/21 07/03/21 07/01/21 History topical gel] Ergocalciferol (Vitamin D2) 50 mcg PO QDAY 07/03/21 07/03/21 07/01/21 History [Vitamin D2] megestroL [Megestrol] 10 ml PO QDAY 07/03/21 07/03/21 07/01/21 History Active Meds: Active Medications Sodium Chloride (Nacl 0.9% 1000 Ml) 1,000 mls @ 75 mls/hr IV DIRECT CHRISTIE Review of Systems ROS unobtainable: due to mental status Cardiovascular: no chest pain Physical Examination Last Vital Signs Temp 98.7 F 07/03/21 09:35 Pulse 103 H 07/03/21 11:01 Resp 13 07/03/21 11:01 BP 132/76 07/03/21 11:01 Pulse Ox 99 07/03/21 11:01 General appearance: no acute distress HEENT: Positive: EOMI, Normocephaly Neck: Positive: neck supple, trachea midline Cardiac: Positive: Reg Rate and Rhythm Lungs: Positive: Decreased Breath Sounds Neuro: Positive: Grossly Intact Abdomen: Positive: Soft. Negative: Tender Skin: Negative: Rash Musculoskeletal: No Fluid Collection Extremities: Present: lower extr. pulses, warm. Absent: edema Results 07/03/21 07:01 07/03/21 07:01 Cardiac Enzymes 07/03/21 Range/Units 07:01 AST 14 (5-40) units/L CBC 07/03/21 Range/Units 07:01 WBC 15.9 H (4.5-11.0) K/mm3 RBC 4.55 (3.65-5.03) M/mm3 Hgb 12.3 (11.8-15.2) gm/dl Hct 37.4 (35.5-45.6) % Plt Count 237 (140-440) K/mm3 Comprehensive Metabolic Panel 07/03/21 Range/Units 07:01 Sodium 140 (137-145) mmol/L Potassium 4.2 (3.6-5.0) mmol/L Chloride 106.5 (98-107) mmol/L Carbon Dioxide 21 L (22-30) mmol/L BUN 28 H (9-20) mg/dL Creatinine 1.6 H (0.8-1.3) mg/dL Glucose 220 H (75-100) mg/dL Calcium 9.6 (8.4-10.2) mg/dL AST 14 (5-40) units/L ALT 14 (7-56) units/L Alkaline Phosphatase 63 (35-129) units/L Total Protein 7.5 (6.3-8.2) g/dL Albumin 3.8 L (3.9-5) g/dL - Imaging and Cardiology Echo: pending, other (11/2018 - EF 25-30%, impaired relaxation) EKG: report reviewed, image reviewed - EKG Interpretation EKG: no acute changes EKG interpretations - EKG Sinus rhythms and dysrhythmias: sinus tachycardia Ventricular dysrhythmias: ventricular premature com Repolarization changes or abnormalities: nonspecific abnormality, ST segment, and/or T wave Assessment and Plan Obtain echo. Trend cardiac enzymes. ECG reveals no acute ischemic changes. Suspect non-UT troponin elevation in the setting of urosepsis & CHRIS. Recommend conservative cardiac mgmt. Resume bASA, statin, & BB. Losartan on hold due to renal fxn. [facility]. Plan of care d/w pt's via phone. All questions answered. Pt seen in conjunction with Dr. Frey, who agrees with the assessment and plan of care. - Patient Problems (1) Acute encephalopathy Current Visit: Yes Status: Acute (2) Sepsis Current Visit: Yes Status: Acute Qualifiers: Sepsis type: sepsis due to unspecified organism Sepsis acute organ dysfunction status: unspecified Qualified Code(s): A41.9 - Sepsis, unspecified organism (3) UTI (urinary tract infection) Current Visit: Yes Status: Acute Qualifiers: Urinary tract infection type: acute cystitis Hematuria presence: without hematuria Qualified Code(s): N30.00 - Acute cystitis without hematuria (4) Acute kidney injury superimposed on CKD Current Visit: Yes Status: Acute (5) Elevated troponin Current Visit: Yes Status: Acute (6) Cardiomyopathy Current Visit: Yes Status: Chronic (7) CAD (coronary artery disease) Current Visit: Yes Status: Chronic (8) History of coronary artery bypass graft Current Visit: Yes Status: Chronic (9) HTN (hypertension) Current Visit: Yes Status: Chronic Qualifiers: Hypertension type: primary hypertension Qualified Code(s): I10 - Essential (primary) hypertension (10) DM2 (diabetes mellitus, type 2) Current Visit: Yes Status: Chronic (11) History of CVA (cerebrovascular accident) Current Visit: Yes Status: Chronic (12) Dementia Current Visit: Yes Status: Chronic
[2021-07-03] MEDS: CLOPIDOGREL 75 MG TAB PO SCH (16:00)
[2021-07-03] MEDS: levETIRAcetam 500 MG TAB PO SCH (21:45)
[2021-07-03] MEDS ORDERED: oxyCODONE /ACETAMINOPHEN 5-325MG TAB PO ONE (23:32)
[2021-07-04] MEDS ORDERED: DICLOFENAC SODIUM 1% TOPICAL GEL 100 GM TP PRN (00:01)
[2021-07-04 01:56] LABS: Chol/HDL Ratio 2.95 %
[2021-07-04 06:42] LABS: BUN/Creatinine Ratio 16; Blood Urea Nitrogen 21 mg/dL (9-20); Calcium 9.5 mg/dL (8.4-10.2); Hemolysis Index 2
[2021-07-04] MEDS ORDERED: ERGOCALCIFEROL 50 MCG PO SCH (10:00)
[2021-07-04] MEDS ORDERED: NON-FORMULARY EACH (Rosuvastatin Calcium [Crestor] 40 MG Tablet) PO SCH (10:00)
[2021-07-04] MEDS ORDERED: CYANOCOBALAMIN 500 MCG PO SCH (10:00)
[2021-07-04] MEDS ORDERED: ALOGLIPTIN BENZOATE 25 MG PO SCH (10:00)
[2021-07-04] MEDS: levETIRAcetam 500 MG TAB PO SCH ×2 (11:11→23:19)
[2021-07-04] MEDS: METOPROLOL SUCCINATE XL 25 MG TAB PO SCH (11:11)
[2021-07-04] MEDS: PANTOPRAZOLE 40 MG TAB PO SCH (11:11)
[2021-07-04] MEDS: CHOLECALCIFEROL (VIT D3) 1000 UNIT (25 mcg) TAB PO SCH (11:11)
[2021-07-04] MEDS: ASPIRIN 81 MG TAB CHEW PO SCH (11:11)
[2021-07-04] MEDS: CLOPIDOGREL 75 MG TAB PO SCH (11:11)
[2021-07-04] MEDS: CYANOCOBALAMIN (VIT B-12) 1000 MCG TAB PO SCH (11:11)
[2021-07-04] MEDS: cefTRIAXone/NS 1 GM/50 ML 1 GM/50 ML BAG IV SCH (11:12)
--- NOTE | 2021-07-04 12:58 | Progress Note ---
Assessment and Plan Echo 07/03/2021 EF 25-30%, right ventricular systolic function is normal, left ventricular systoli function is moderately decreased, Borderline aortic stenosis, mild tricuspid regurgitation, left and right atrium not well vsiualized Lexiscan MPI stress test Wednesday . NPO after midnight on Wednesday ECG reveals no acute ischemic changes. Suspect non-CT troponin elevation in the setting of urosepsis & CHRIS. Recommend conservative cardiac mgmt. Continue bASA, statin, & BB. Losartan on hold due to renal fxn. Plan of care d/w pt's via phone. All questions answered. Pt seen in conjunction with Dr. Frey, who agrees with the assessment and plan of care. Will continue to follow - Patient Problems (1) CHRIS (acute kidney injury) Current Visit: Yes Status: Acute (2) Acute encephalopathy Current Visit: Yes Status: Acute (3) Acute kidney injury superimposed on CKD Current Visit: Yes Status: Acute (4) Elevated troponin Current Visit: Yes Status: Acute (5) Sepsis Current Visit: Yes Status: Acute Qualifiers: Sepsis type: sepsis due to unspecified organism Sepsis acute organ dysfunction status: unspecified Qualified Code(s): A41.9 - Sepsis, unspecified organism (6) UTI (urinary tract infection) Current Visit: Yes Status: Acute Qualifiers: Urinary tract infection type: acute cystitis Hematuria presence: without hematuria Qualified Code(s): N30.00 - Acute cystitis without hematuria (7) CAD (coronary artery disease) Current Visit: Yes Status: Chronic (8) CKD (chronic kidney disease) Current Visit: Yes Status: Chronic (9) Cardiomyopathy Current Visit: Yes Status: Chronic (10) DM2 (diabetes mellitus, type 2) Current Visit: Yes Status: Chronic (11) Dementia Current Visit: Yes Status: Chronic (12) HTN (hypertension) Current Visit: Yes Status: Chronic Qualifiers: Hypertension type: primary hypertension Qualified Code(s): I10 - Essential (primary) hypertension (13) History of CVA (cerebrovascular accident) Current Visit: Yes Status: Chronic (14) History of coronary artery bypass graft Current Visit: Yes Status: Chronic (15) Altered mental status Current Visit: No Status: Resolved Qualifiers: Altered mental status type: unspecified Qualified Code(s): R41.82 - Altered mental status, unspecified Subjective Date of service: 07/04/21 Principal diagnosis: AMS Interval history: Patient sitting in bed still altered but more alert sinus 71 on monitor Objective Vital Signs Temp Pulse Resp BP BP Pulse Ox 07/04/21 11:11 71 104/58 07/04/21 11:00 94 07/04/21 10:55 97.5 F L 80 18 105/45 89 07/04/21 05:23 98.3 F 71 20 104/58 92 07/04/21 03:00 17 97 07/04/21 00:10 17 07/03/21 23:10 17 07/03/21 23:01 98.6 F 63 20 148/67 99 07/03/21 21:57 82 17 119/58 90 07/03/21 21:31 118/57 91 07/03/21 21:21 118/57 91 07/03/21 21:11 113/57 90 07/03/21 21:01 107/45 90 07/03/21 20:52 94 07/03/21 18:01 97.9 F 84 18 130/75 99 07/03/21 15:08 98 - Physical Examination General: No Apparent Distress HEENT: Positive: EOMI, Normocephaly Neck: Positive: neck supple, trachea midline Cardiac: Positive: Reg Rate and Rhythm Lungs: Positive: Normal Breath Sounds Neuro: Positive: Grossly Intact Abdomen: Positive: Soft. Negative: Tender Skin: Negative: Rash Musculoskeletal: No Fluid Collection Extremities: Present: lower extr. pulses, warm. Absent: edema - Labs and Meds Lipids 07/04/21 Range/Units 00:38 Triglycerides 68 (2-149) mg/dL Cholesterol 127 (50-199) mg/dL HDL Cholesterol 43 (40-59) mg/dL Cholesterol/HDL Ratio 2.95 % Comprehensive Metabolic Panel 07/04/21 Range/Units 06:17 Sodium 143 (137-145) mmol/L Potassium 4.2 (3.6-5.0) mmol/L Chloride 111.6 H (98-107) mmol/L Carbon Dioxide 20 L (22-30) mmol/L BUN 21 H (9-20) mg/dL Creatinine 1.3 (0.8-1.3) mg/dL Glucose 132 H (75-100) mg/dL Calcium 9.5 (8.4-10.2) mg/dL - Imaging and Cardiology EKG: report reviewed, image reviewed Echo: report reviewed (Echo 07/03/2021 EF 35-40%, right ventricular systolic function is normal, left ventricular systoli function is moderately decreased, Borderline aortic stenosis, mild tricuspid regurgitation, left and right atrium not well vsiualized), other (11/2018 - EF 25-30%, impaired relaxation) - Telemetry EKG Rhythm: Sinus Rhythm - EKG Sinus rhythms and dysrhythmias: sinus tachycardia Ventricular dysrhythmias: ventricular premature com Repolarization changes or abnormalities: nonspecific abnormality, ST segment, and/or T wave
[2021-07-04] MEDS ORDERED: oxyCODONE /ACETAMINOPHEN 5-325MG TAB PO ONE (23:47)
[2021-07-05] MEDS ORDERED: DEXTROSE 50% IN WATER (25GM) 50 ML VIAL IV PRN (08:30)
[2021-07-05] MEDS: DEXTROSE 50% IN WATER (25GM) 50 ML SYRINGE IV PRN ×2 (08:36→08:37)
--- NOTE | 2021-07-05 08:42 | Progress Note ---
Assessment and Plan Acute metabolic encephalopathy -Likely due to underlying sepsis with UTI -Patient also has underlying dementia -Continue supportive care and empiric antibiotics UTI with Sepsis -Follow urine culture blood culture continue antibiotics CHRIS likely due to vasomotor nephropathy -Improved with mild hydration Elevated troponin, likely NSTEMI type II -Consulted cardiology, Lexiscan MPI stress test Wednesday . NPO after midnight on Wednesday -Continue bASA, statin, & BB. 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 Renal function improved. Wait for culture report. Order PT eval. planned for stress test on Wednesday Subjective Date of service: 07/04/21 Principal diagnosis: AMS Interval history: Patient seen and examined. Medical records and medication list reviewed. No acute event overnight noted by the RN. Patient denies any chest pain or difficulty breathing. Patient is tolerating diet. Patient alert and oriented today Discussed plan of care at bedside with patient. Objective - Exam Narrative Exam: GENERAL: well-developed elderly -[place]vian male lying on bed appeared to be in no discomfort. HEENT: Normocephalic. Atraumatic. No conjunctival congestion or icterus. Patient has moist mucous membranes. NECK: Supple. Trachea midline. CHEST/LUNGS: Clear to auscultated bilaterally, breathing nonlabored. No wheezes crackles or rhonchi. HEART/CARDIOVASCULAR: Regular in rate and rhythm. S1 and S2 positive. ABDOMEN: Abdomen is soft, nontender. Patient has normal bowel sounds. SKIN: There is no rash. Warm and dry. NEURO: left sided weakness. Follows command. MUSCULOSKELETAL: No joint effusion or tenderness. EXTRIMITY: No edema, no cyanosis or clubbing. PSYCH: Cooperative. - Constitutional Vitals: Vital Signs - 12hr 07/04/21 22:12 Temperature 97.4 F L Respiratory 20 Rate Blood Pressure 148/71 - Labs CBC & Chem 7: 07/03/21 07:01 07/06/21 07:34 Labs: Abnormal lab results 07/05/21 Range/Units 07:48 POC Glucose 65 L (70-105) mg/dL HEART Score - HEART Score Troponin: Troponin T 0.218 ng/mL (0.00-0.029) H* 07/04/21 06:17
[2021-07-05] MEDS: levETIRAcetam 500 MG TAB PO SCH ×2 (12:16→23:40)
[2021-07-05] MEDS: CYANOCOBALAMIN (VIT B-12) 1000 MCG TAB PO SCH (12:16)
[2021-07-05] MEDS: ASPIRIN 81 MG TAB CHEW PO SCH (12:16)
[2021-07-05] MEDS: PANTOPRAZOLE 40 MG TAB PO SCH (12:16)
[2021-07-05] MEDS: cefTRIAXone/NS 1 GM/50 ML 1 GM/50 ML BAG IV SCH (12:17)
[2021-07-05] MEDS: CHOLECALCIFEROL (VIT D3) 1000 UNIT (25 mcg) TAB PO SCH (12:17)
[2021-07-05] MEDS: CLOPIDOGREL 75 MG TAB PO SCH (12:17)
[2021-07-05] MEDS: METOPROLOL SUCCINATE XL 25 MG TAB PO SCH (12:27)
--- NOTE | 2021-07-05 15:43 | Progress Note ---
Assessment and Plan Echo 07/03/2021 reviewed - EF 35-40%, borderline , mild TR. Given pt's cognitive status, recommend conservative cardiac mgmt. Will cancel Lexiscan MPI stress test as such. Continue bASA, Plavix, statin, & BB. F/u BMP in AM. Resume Losartan if renal fxn remains stable. Pt seen in conjunction with Dr. Dumont, who agrees with the assessment and plan of care. - Patient Problems (1) Acute encephalopathy Current Visit: Yes Status: Acute (2) Sepsis Current Visit: Yes Status: Acute Qualifiers: Sepsis type: sepsis due to unspecified organism Sepsis acute organ dysfunction status: unspecified Qualified Code(s): A41.9 - Sepsis, unspecified organism (3) UTI (urinary tract infection) Current Visit: Yes Status: Acute Qualifiers: Urinary tract infection type: acute cystitis Hematuria presence: without hematuria Qualified Code(s): N30.00 - Acute cystitis without hematuria (4) Acute kidney injury superimposed on CKD Current Visit: Yes Status: Acute (5) NSTEMI (non-ST elevated myocardial infarction) Current Visit: Yes Status: Acute Plan to address problem: Type 2 (6) Cardiomyopathy Current Visit: Yes Status: Chronic (7) CAD (coronary artery disease) Current Visit: Yes Status: Chronic (8) History of coronary artery bypass graft Current Visit: Yes Status: Chronic (9) HTN (hypertension) Current Visit: Yes Status: Chronic Qualifiers: Hypertension type: primary hypertension Qualified Code(s): I10 - Essential (primary) hypertension (10) DM2 (diabetes mellitus, type 2) Current Visit: Yes Status: Chronic (11) History of CVA (cerebrovascular accident) Current Visit: Yes Status: Chronic (12) Dementia Current Visit: Yes Status: Chronic Subjective Date of service: 07/05/21 Principal diagnosis: AMS Interval history: Pleasantly demented. No cardiac complaints. Noted to be uncooperative with some meds and other therapies. Tele reviewed - SR 80s w/PVCs, intermittent short runs of NSVT. Objective Last Vital Signs Temp 97.3 F L 07/05/21 12:22 Pulse 87 07/05/21 12:27 Resp 18 07/05/21 12:22 BP 137/71 07/05/21 12:27 Pulse Ox 96 07/04/21 16:55 - Physical Examination General: No Apparent Distress HEENT: Positive: EOMI, Normocephaly Neck: Positive: neck supple, trachea midline Cardiac: Positive: Reg Rate and Rhythm, S1/S2 Lungs: Positive: Decreased Breath Sounds Neuro: Positive: Grossly Intact Abdomen: Positive: Soft. Negative: Tender Skin: Negative: Rash Musculoskeletal: No Fluid Collection Extremities: Present: lower extr. pulses, warm. Absent: edema - Imaging and Cardiology EKG: report reviewed, image reviewed Echo: report reviewed, other (11/2018 - EF 25-30%, impaired relaxation) - Telemetry EKG Rhythm: Sinus Rhythm - EKG Sinus rhythms and dysrhythmias: sinus tachycardia Ventricular dysrhythmias: ventricular premature com Repolarization changes or abnormalities: nonspecific abnormality, ST segment, and/or T wave
--- NOTE | 2021-07-05 17:12 | Progress Note ---
Assessment and Plan Acute metabolic encephalopathy -Likely due to underlying sepsis with UTI -Patient also has underlying dementia -Continue supportive care and empiric antibiotics UTI with Sepsis -Follow urine culture blood culture continue antibiotics CHRIS likely due to vasomotor nephropathy -Improved with mild hydration Elevated troponin, likely NSTEMI type II -Consulted cardiology, planned for conservative care -Continue bASA, statin, & BB. 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 Renal function improved. Wait for culture report. Order PT eval. planned for stress test on Wednesday07/05/21: BG at 60s today, initiate hypoglycemia protocol, follow clinically, monitor BMP. Cancel stress test by cardiology. Patient is nonambulatory Subjective Date of service: 07/05/21 Principal diagnosis: AMS Interval history: Patient seen and examined. Medical records and medication list reviewed. No acute event overnight noted by the RN. Patient denies any chest pain or difficulty breathing. Patient is tolerating diet. Blood glucose dropped to 60s this morning Discussed plan of care at bedside with patient. Objective - Exam Narrative Exam: GENERAL: well-developed elderly -[place]ian male lying on bed appeared to be in no discomfort. HEENT: Normocephalic. Atraumatic. No conjunctival congestion or icterus. Patient has moist mucous membranes. NECK: Supple. Trachea midline. CHEST/LUNGS: Clear to auscultated bilaterally, breathing nonlabored. No wheezes crackles or rhonchi. HEART/CARDIOVASCULAR: Regular in rate and rhythm. S1 and S2 positive. ABDOMEN: Abdomen is soft, nontender. Patient has normal bowel sounds. SKIN: There is no rash. Warm and dry. NEURO: left sided weakness. Follows command. MUSCULOSKELETAL: No joint effusion or tenderness. EXTRIMITY: No edema, no cyanosis or clubbing. PSYCH: Cooperative. - Constitutional Vitals: Vital Signs - 12hr 07/05/21 07/05/21 12:22 12:27 Temperature 97.3 F L Pulse Rate 87 Respiratory 18 Rate Blood Pressure 137/71 137/71 - Labs CBC & Chem 7: 07/03/21 07:01 07/06/21 07:34 Labs: Abnormal lab results 07/05/21 07/05/21 07/05/21 Range/Units 07:48 09:59 12:19 POC Glucose 65 L 126 H 224 H (70-105) mg/dL HEART Score - HEART Score Troponin: Troponin T 0.218 ng/mL (0.00-0.029) H* 07/04/21 06:17
[2021-07-06 08:09] LABS: BUN/Creatinine Ratio 13; Blood Urea Nitrogen 12 mg/dL (9-20); Calcium 9.8 mg/dL (8.4-10.2); Hemolysis Index 2
[2021-07-06] MEDS: cefTRIAXone/NS 1 GM/50 ML 1 GM/50 ML BAG IV SCH (11:47)
[2021-07-06] MEDS: CHOLECALCIFEROL (VIT D3) 1000 UNIT (25 mcg) TAB PO SCH (11:48)
[2021-07-06] MEDS: CYANOCOBALAMIN (VIT B-12) 1000 MCG TAB PO SCH (11:48)
[2021-07-06] MEDS: levETIRAcetam 500 MG TAB PO SCH (11:49)
[2021-07-06] MEDS: CLOPIDOGREL 75 MG TAB PO SCH (11:49)
[2021-07-06] MEDS: PANTOPRAZOLE 40 MG TAB PO SCH (11:49)
[2021-07-06] MEDS: ASPIRIN 81 MG TAB CHEW PO SCH (11:49)
[2021-07-06] MEDS: METOPROLOL SUCCINATE XL 25 MG TAB PO SCH (11:51)
--- NOTE | 2021-07-06 14:00 | Discharge Summary ---
Providers - Providers Date of Admission: 07/03/21 10:11 Date of discharge: 07/07/21 Attending physician: SONU HOROWITZ 07/03/21 10:24 Consult to Cardiology [CONS] Routine Consulting Provider: ALEXIS HANEY Reason For Exam: elevated troponin 07/04/21 14:30 Physical Therapy Evaluation and Treat [CONS] Urgent Comment: Reason For Exam: To determine mobility status 07/04/21 14:31 Occupational Therapy Evaluate and Treat [CONS] Urgent Comment: Reason For Exam: To determine ADL status Primary care physician: TEST MANAGER Hospitalization Condition: Fair Hospital course: 80-year-old -Bangl[place]hi male with a h/o CHF, CAD s/p CABG (~2008), CKD, HTN, DM2, and CVA w/residual left-sided deficits, fully vaccinated against COVI D-19 presents to the emergency department via EMS from home with complaint of a fever, chills and AMS that started this morning. The patient's who was at bedside providing all information and she stated that the patient does not ambulate at baseline, but usually is verbal and conversive. In the ER patient noted to have CHRIS, UA was suggestive for UTI, and elevated troponin. Patient placed on empiric antibiotic, consulted cardiology and admitted to the hospital for further evaluation and management. Daily clinical course: 07/04/21: Continue empiric antibiotics, follow BMP. Renal function improved. Wait for culture report. Order PT eval. planned for stress test on Wednesday07/05/21: BG at 60s today, initiate hypoglycemia protocol, follow clinically, monitor BMP. Cancel stress test by cardiology. Patient is nonambulatory 07/06/21; Echo 07/03/2021 reviewed - EF 35-40%, borderline , mild TR. Given pt's cognitive status, cardiology recommend conservative cardiac mgmt. Continue empiric antibiotic for UTI, follow clinically. If clinically remains stable and no further hypoglycemic episode, patient will be discharged home tomorrow 07/07/21; clinically stable, patient will be discharged home today with outpatient follow-up. Management per problem list: Acute metabolic encephalopathy -Likely due to underlying sepsis with UTI -Patient also has underlying dementia -Continue supportive care and empiric antibiotics UTI with Sepsis -negative urine culture, blood culture. Treated with antibiotics CHRIS likely due to vasomotor nephropathy -Improved with mild hydration Elevated troponin, likely NSTEMI type II -Consulted cardiology, planned for conservative care -Continue bASA, statin, & BB. 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 --UTI with Sepsis. --CHRIS likely due to vasomotor nephropathy. --Elevated troponin, likely NSTEMI type II. --Chronic systolic CHF. --History of CVA with residual left-sided weakness. --Vascular Dementia. --h/o seizure disorder Time spent for discharge: 34 minutes Core Measure Documentation - Palliative Care Palliative Care/ Comfort Measures: Not Applicable - Core Measures Any of the following diagnoses?: none Exam - Physical Exam Narrative exam: GENERAL: well-developed elderly -[place] male lying on bed appeared to be in no discomfort. HEENT: Normocephalic. Atraumatic. No conjunctival congestion or icterus. Patient has moist mucous membranes. NECK: Supple. Trachea midline. CHEST/LUNGS: Clear to auscultated bilaterally, breathing nonlabored. No wheezes crackles or rhonchi. HEART/CARDIOVASCULAR: Regular in rate and rhythm. S1 and S2 positive. ABDOMEN: Abdomen is soft, nontender. Patient has normal bowel sounds. SKIN: There is no rash. Warm and dry. NEURO: left sided weakness. Follows command. MUSCULOSKELETAL: No joint effusion or tenderness. EXTRIMITY: No edema, no cyanosis or clubbing. PSYCH: Cooperative. - Constitutional Vitals: Temp Pulse Resp BP Pulse Ox 98.8 F 89 18 157/88 92 07/06/21 11:37 07/06/21 11:51 07/06/21 11:37 07/06/21 11:51 07/06/21 11:37 Plan Activity: fall precautions Weight Bearing Status: Non-Weight Bearing Diet: low fat, low salt Follow up with: HEYDI CELESTE MD [Primary Care Provider] - 3-5 Days ROMINA ORONA MD [Staff Physician] - 7 Days Prescriptions: Metoprolol Xl [Metoprolol SUCCINATE ER TAB] 50 mg PO QDAY #60 tablet
--- NOTE | 2021-07-06 15:32 | Progress Note ---
Assessment and Plan Echo 07/03/2021 reviewed - EF 35-40%, borderline , mild TR. Given pt's cognitive status, recommend conservative cardiac mgmt. Continue bASA, Plavix, & statin. Continue Toprol 50mg daily. Resume Losartan 25mg daily. Otherwise stable cardiac status. No objection to discharge from a Cardiology standpoint following KCl repletion. Follow-up with [facility] within 1-2 weeks. Pt seen in conjunction with Dr. Dumont, who agrees with the assessment and plan of care. - Patient Problems (1) Acute encephalopathy Current Visit: Yes Status: Resolved (2) Sepsis Current Visit: Yes Status: Acute Qualifiers: Sepsis type: sepsis due to unspecified organism Sepsis acute organ dysfunction status: unspecified Qualified Code(s): A41.9 - Sepsis, unspecified organism (3) UTI (urinary tract infection) Current Visit: Yes Status: Acute Qualifiers: Urinary tract infection type: acute cystitis Hematuria presence: without hematuria Qualified Code(s): N30.00 - Acute cystitis without hematuria (4) Acute kidney injury superimposed on CKD Current Visit: Yes Status: Resolved (5) NSTEMI (non-ST elevated myocardial infarction) Current Visit: Yes Status: Acute Plan to address problem: Type 2 (6) Cardiomyopathy Current Visit: Yes Status: Chronic (7) CAD (coronary artery disease) Current Visit: Yes Status: Chronic (8) History of coronary artery bypass graft Current Visit: Yes Status: Chronic (9) HTN (hypertension) Current Visit: Yes Status: Chronic Qualifiers: Hypertension type: primary hypertension Qualified Code(s): I10 - Essential (primary) hypertension (10) DM2 (diabetes mellitus, type 2) Current Visit: Yes Status: Chronic (11) History of CVA (cerebrovascular accident) Current Visit: Yes Status: Chronic (12) Dementia Current Visit: Yes Status: Chronic Subjective Date of service: 07/06/21 Principal diagnosis: AMS Interval history: Appears comfortable. No cardiac complaints. Objective Last Vital Signs Temp 98.8 F 07/06/21 11:37 Pulse 89 07/06/21 11:51 Resp 18 07/06/21 11:37 BP 157/88 07/06/21 11:51 Pulse Ox 92 07/06/21 11:37 - Physical Examination General: No Apparent Distress HEENT: Positive: EOMI, Normocephaly Neck: Positive: neck supple, trachea midline Cardiac: Positive: Reg Rate and Rhythm, S1/S2 Lungs: Positive: Decreased Breath Sounds Neuro: Positive: Grossly Intact Abdomen: Positive: Soft. Negative: Tender Skin: Negative: Rash Musculoskeletal: No Fluid Collection Extremities: Present: lower extr. pulses, warm. Absent: edema - Labs and Meds Comprehensive Metabolic Panel 07/06/21 Range/Units 07:34 Sodium 145 (137-145) mmol/L Potassium 3.3 L D (3.6-5.0) mmol/L Chloride 111.7 H (98-107) mmol/L Carbon Dioxide 21 L (22-30) mmol/L BUN 12 (9-20) mg/dL Creatinine 0.9 (0.8-1.3) mg/dL Glucose 172 H (75-100) mg/dL Calcium 9.8 (8.4-10.2) mg/dL - Imaging and Cardiology EKG: report reviewed, image reviewed Echo: report reviewed, other (11/2018 - EF 25-30%, impaired relaxation) - Telemetry EKG Rhythm: Sinus Rhythm - EKG Sinus rhythms and dysrhythmias: sinus tachycardia Ventricular dysrhythmias: ventricular premature com Repolarization changes or abnormalities: nonspecific abnormality, ST segment, and/or T wave - Allied health notes Allied health notes reviewed: nursing
[2021-07-06] MEDS: METOPROLOL SUCCINATE XL 50 MG TAB PO SCH (18:00)
[2021-07-07] MEDS ORDERED: hydrALAZINE 20 MG/1 ML INJ IV ONE (00:30)
[2021-07-07] MEDS: levETIRAcetam 500 MG TAB PO SCH ×2 (00:43→10:00)
[2021-07-07] MEDS: MORPHINE 2 MG/1 ML INJ IV PRN ×2 (00:44→06:02)
[2021-07-07] MEDS: CHOLECALCIFEROL (VIT D3) 1000 UNIT (25 mcg) TAB PO SCH (10:00)
[2021-07-07] MEDS: cefTRIAXone/NS 1 GM/50 ML 1 GM/50 ML BAG IV SCH (10:00)
[2021-07-07] MEDS ORDERED: LOSARTAN 25 MG TAB PO SCH (10:00)
[2021-07-07] MEDS: PANTOPRAZOLE 40 MG TAB PO SCH (10:00)
[2021-07-07] MEDS: CLOPIDOGREL 75 MG TAB PO SCH (10:00)
[2021-07-07] MEDS: METOPROLOL SUCCINATE XL 50 MG TAB PO SCH (10:00)
[2021-07-07] MEDS: CYANOCOBALAMIN (VIT B-12) 1000 MCG TAB PO SCH (10:00)
[2021-07-07] MEDS: ASPIRIN 81 MG TAB CHEW PO SCH (10:00)
[2021-07-07 13:02] VITALS: BP 141/82
--- NOTE | 2021-07-07 15:19 | Progress Note ---
Assessment and Plan Acute metabolic encephalopathy -Likely due to underlying sepsis with UTI -Patient also has underlying dementia -Continue supportive care and empiric antibiotics UTI with Sepsis -Follow urine culture blood culture continue antibiotics CHRIS likely due to vasomotor nephropathy -Improved with mild hydration Elevated troponin, likely NSTEMI type II -Consulted cardiology, planned for conservative care -Continue bASA, statin, & BB. 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 Renal function improved. Wait for culture report. Order PT eval. planned for stress test on Wednesday07/05/21: BG at 60s today, initiate hypoglycemia protocol, follow clinically, monitor BMP. Cancel stress test by cardiology. Patient is nonambulatory 07/06/21; Echo 07/03/2021 reviewed - EF 35-40%, borderline , mild TR. Given pt's cognitive status, cardiology recommend conservative cardiac mgmt. Continue empiric antibiotic for UTI, follow clinically. If clinically remains stable and no further hypoglycemic episode, patient will be discharged home tomorrow Subjective Date of service: 07/06/21 Principal diagnosis: AMS Interval history: Patient seen and examined. Medical records and medication list reviewed. No acute event overnight noted by the RN. Patient denies any chest pain or difficulty breathing. Patient is tolerating diet. Discussed plan of care at bedside with patient. Objective - Exam Narrative Exam: GENERAL: well-developed elderly -[place] male lying on bed appeared to be in no discomfort. HEENT: Normocephalic. Atraumatic. No conjunctival congestion or icterus. Patient has moist mucous membranes. NECK: Supple. Trachea midline. CHEST/LUNGS: Clear to auscultated bilaterally, breathing nonlabored. No wheezes crackles or rhonchi. HEART/CARDIOVASCULAR: Regular in rate and rhythm. S1 and S2 positive. ABDOMEN: Abdomen is soft, nontender. Patient has normal bowel sounds. SKIN: There is no rash. Warm and dry. NEURO: left sided weakness. Follows command. MUSCULOSKELETAL: No joint effusion or tenderness. EXTRIMITY: No edema, no cyanosis or clubbing. PSYCH: Cooperative. - Constitutional Vitals: Vital Signs - 12hr 07/07/21 07/07/21 07/07/21 05:55 10:00 11:24 Temperature 98.0 F 97.7 F Pulse Rate 114 H 92 H Respiratory 18 Rate Blood Pressure 140/81 141/82 O2 Sat by Pulse 98 99 99 Oximetry - Labs CBC & Chem 7: 07/03/21 07:01 07/06/21 07:34 Labs: Abnormal lab results 07/06/21 07/06/21 07/07/21 Range/Units 16:27 22:30 07:45 POC Glucose 162 H 122 H 209 H (70-105) mg/dL 07/07/21 Range/Units 11:23 POC Glucose 161 H (70-105) mg/dL HEART Score - HEART Score Troponin: Troponin T 0.218 ng/mL (0.00-0.029) H* 07/04/21 06:17
--- NOTE | 2021-07-09 14:35 | Electrocardiograph Report ---
[facility] Test Date: 2021-07-03 Test Time: 06:59:14 Pat Name: JULIO ROLDAN Department: Room: A382 1 Gender: M [employer] Supervisor: KASSI : 1940 Requested By: LORE SHARMA Order Number: [id number] Reading MD: Taniya Silver Measurements Intervals [place] Rate: 116 P: 78 WV: 140 QRS: 68 QRSD: 104 T: 253 QT: 329 QTc: 458 Interpretive Statements Sinus tachycardia Occasional ventricular premature complexes Repol abnrm suggests ischemia, anterolateral No previous ECG available for comparison Electronically Signed On 07-09-2021 14:35:08 EDT by Taniya Silver
== END 2021-07-07 12:30 | disposition home health service (06) | DRG 871 ==
LOC: ED 05:19 → 3A 10:11
PROVIDERS: ADMIT Internal Medicine; ATTEND Internal Medicine
DX: A41.9 Sepsis, unspecified organism (principal); G93.41 Metabolic encephalopathy; N17.0 Acute kidney failure with tubular necrosis; I21.A1 Myocardial infarction type 2; N39.0 Urinary tract infection, site not specified; I50.22 Chronic systolic (congestive) heart failure; I42.9 Cardiomyopathy, unspecified; I13.0 Hypertensive heart and chronic kidney disease with heart failure and stage 1 through stage 4 chronic kidney disease, or unspecified chronic kidney disease; F01.50 Vascular dementia, unspecified severity, without behavioral disturbance, psychotic disturbance, mood disturbance, and anxiety; I25.10 Atherosclerotic heart disease of native coronary artery without angina pectoris; Z20.822 Contact with and (suspected) exposure to COVID-19; N18.9 Chronic kidney disease, unspecified; E11.22 Type 2 diabetes mellitus with diabetic chronic kidney disease; E78.5 Hyperlipidemia, unspecified; Z95.1 Presence of aortocoronary bypass graft; Z87.891 Personal history of nicotine dependence; Z86.73 Personal history of transient ischemic attack (TIA), and cerebral infarction without residual deficits
CPT/HCPCS: 36415; 70450; 71045; 80048; 80053; 80061; 80307; 81001; 82140; 82962; 84443; 84484; 85007; 85025; 87040; 87086; 87400; 93005; 93308; 93321; 93325; G0378; J0360; J0696; J2270; J2405; J7030; U0003

== ENCOUNTER 2021-07-14 19:09 | Emergency (ER) | payer MEDICARE, OTHER ==
--- NOTE | 2021-07-14 20:33 | Emergency Department Report ---
HPI - General Chief Complaint: Urogenital-Male Time Seen by Provider: 07/14/21 20:02 - HPI HPI: This is a 80-year-old -[place] male presents to the emergency department for removal of his Veliz catheter. The Veliz catheter was placed about 10 days ago when the patient was here with altered mental status and ultimately had acute metabolic encephalopathy, NSTEMI, CHF exacerbation and UTI. The Veliz catheter was placed secondary to the encephalopathy and not due to any history of urinary retention. He does have a history of CVA and is nonambulatory at baseline. The says that she is concerned there is an infection as he has some swelling to the head of his penis, and she says that the Veliz catheter has been hurting him.. ED Past Medical Hx - Past Medical History Hx Hypertension: Yes Hx CVA: Yes Hx Heart Attack/AMI: No Hx Congestive Heart Failure: No Hx Diabetes: Yes Hx Deep Vein Thrombosis: No Hx Pulmonary Embolism: No Hx GERD: No Hx Liver Disease: No Hx Renal Disease: No Hx Sickle Cell Disease: No Hx Arthritis: Yes Hx Headaches / Migraines: No Hx Seizures: Yes Hx Kidney Stones: No Hx Asthma: No Hx COPD: No Hx Tuberculosis: No Hx Dementia: Yes Hx HIV: No Additional medical history: hyperlipidemia, bypass x3 vessels - Surgical History Hx Coronary Stent: No Hx Open Heart Surgery: No Hx Pacemaker: No Hx Internal Defibrillator: No Hx Cholecystectomy: No Hx Appendectomy: No Hx Breast Surgery: No - Social History Smoking Status: Former Smoker Substance Use Type: None - Medications Home Medications: Home Medications Medication Instructions Recorded Confirmed Last Taken Type Rosuvastatin Calcium [Crestor] 40 mg PO DAILY 11/24/18 07/03/21 07/01/21 History Clopidogrel Bisulfate [Plavix] 75 mg PO QDAY #30 tablet 11/27/18 07/03/21 07/01/21 Rx Metoprolol Succinate 12.5 mg PO DAILY 10/11/19 07/03/21 07/01/21 History Pantoprazole [Protonix TAB] 40 mg PO QDAY 10/11/19 07/03/21 07/01/21 History levETIRAcetam [Keppra TAB] 500 mg PO BID 10/11/19 07/03/21 07/01/21 History Alogliptin Benzoate [Alogliptin] 25 mg PO QDAY 07/03/21 07/03/21 07/01/21 History Cyanocobalamin (Vitamin B-12) 500 mcg PO QDAY 07/03/21 07/03/21 07/01/21 History [Vitamin B-12] Ergocalciferol (Vitamin D2) 50 mcg PO QDAY 07/03/21 07/03/21 07/01/21 History [Vitamin D2] Metoprolol Xl [Metoprolol 50 mg PO QDAY #60 tablet 07/06/21 Unknown Rx SUCCINATE ER TAB] Clotrimazole 1% [Lotrimin 1%] 1 applic TP BID #1 tube 07/14/21 Unknown Rx ED Review of Systems ROS: Stated complaint: INFECTED CATHETER Other details as noted in HPI Comment: All other systems reviewed and negative Constitutional: denies: chills, fever Eyes: denies: eye pain, vision change ENT: denies: ear pain, throat pain Respiratory: denies: cough, shortness of breath Cardiovascular: denies: chest pain, palpitations Gastrointestinal: denies: abdominal pain, vomiting Genitourinary: other (pain and swelling to head of penis). denies: dysuria, discharge Musculoskeletal: denies: back pain, arthralgia Skin: denies: rash, lesions Neurological: denies: headache, weakness Physical Exam - Physical Exam Vital Signs: Vital Signs 07/14/21 19:44 Temperature 97.6 F Pulse Rate 84 Respiratory 18 Rate Blood Pressure 134/70 [Left] O2 Sat by Pulse 100 Oximetry Physical Exam: GENERAL: The patient is well-developed well-nourished. HENT: Normocephalic. Atraumatic. Patient has moist mucous membranes. EYES: Extraocular motions are intact. NECK: Supple. Trachea is midline. CHEST/LUNGS: Clear to auscultation. There is no respiratory distress noted. HEART/CARDIOVASCULAR: Regular. There is no tachycardia. There is no murmur. ABDOMEN: Abdomen is soft, nontender. Patient has normal bowel sounds. SKIN: Skin is warm and dry. NEURO: The patient is awake, alert, and cooperative. The patient has no focal neurologic deficits. Normal speech. MUSCULOSKELETAL: There is no tenderness or deformity. Bilateral lower extremity contracture. : Veliz catheter in place. There is some mild balanitis to the proximal but circumferential glans of the penis. ED Course Vital Signs 07/14/21 19:44 Temperature 97.6 F Pulse Rate 84 Respiratory 18 Rate Blood Pressure 134/70 [Left] O2 Sat by Pulse 100 Oximetry ED Medical Decision Making - Medical Decision Making This patient came in to be seen for Veliz catheter removal. The patient's was brought back to the room and she confirms that this was the main reason for coming to the emergency department this evening. Apparently it has been hurting him and she thought that it might be infected secondary to some swelling around his penis. On physical examination the patient has some balanitis to the proximal, but circumferential, glans of the penis. I do not think that this is caused by the Veliz catheter, but the catheter does appear to be bothering the patient. I was willing to take out the Veliz catheter as it was not placed secondary to urinary retention, but because the patient was encephalopathic when he was last here. The Veliz catheter was removed and the patient is feeling improved. The patient will be placed on clotrimazole for the balanitis and has been given a urology referral. Critical Care Time: No Critical care attestation.: If time is entered above; I have spent that time in minutes in the direct care of this critically ill patient, excluding procedure time. ED Disposition Clinical Impression: Balanitis, Encounter for Veliz catheter removal Disposition: 01 HOME / SELF CARE / HOMELESS Is pt being admited?: No Condition: Stable Instructions: Balanitis Additional Instructions: Please follow-up with your primary care physician in the next few days. I am also giving you a referral for a local urologist, Dr. Park. Return to the emergency department with any worsening of your symptoms, new or concerning symptoms not addressed during this current emergency department visit, or with any acute distress. Prescriptions: Clotrimazole 1% [Lotrimin 1%] 1 applic TP BID #1 tube Referrals: SILVA PARK MD [Staff Physician] - 3-5 Days Time of Disposition: 21:13
[2021-07-14 22:49] VITALS: BP 142/80
== END 2021-07-15 01:00 | disposition home or self-care (01) ==
LOC: ED 19:09
DX: N48.1 Balanitis (principal); I10 Essential (primary) hypertension; E11.9 Type 2 diabetes mellitus without complications; M19.90 Unspecified osteoarthritis, unspecified site; Z88.8 Allergy status to other drugs, medicaments and biological substances; Z79.899 Other long term (current) drug therapy; Z46.89 Encounter for fitting and adjustment of other specified devices
CPT/HCPCS: 99282

== ENCOUNTER 2022-02-24 22:01 | Inpatient (IN) | payer MEDICARE, OTHER ==
[2022-02-24] MEDS ORDERED: ONDANSETRON 4 MG/2 ML INJ IV ONE (23:11)
[2022-02-24] MEDS ORDERED: SODIUM CHLORIDE 0.9% 1000 ML 1,000 ML IV ONE (23:11)
--- NOTE | 2022-02-24 23:18 | Emergency Department Report ---
<DAWIT MONK - Last Filed: 02/25/22 05:39> - General Chief complaint: Weakness Stated complaint: WEAKNESS/VOMITING Time Seen by Provider: 02/24/22 23:10 Source: patient, EMS Mode of arrival: Stretcher Limitations: No Limitations - History of Present Illness Initial comments: 81-year-old male with a history of CVA, seizure, and diabetes brought in by EMS with nausea and vomiting associated with generalized body weakness that started this evening. According to patient's spouse arrived later on while patient has been examining reported that the emesis was about 6 times. Vomiting started after drinking Herbert and had a piece of chicken. Patient also reports some abdominal discomfort. No fever or chills reported. No other modifying or associated factors reported. - Related Data Home Medications Medication Instructions Recorded Confirmed Last Taken Rosuvastatin Calcium [Crestor] 40 mg PO DAILY 11/24/18 07/03/21 07/01/21 Metoprolol Succinate 12.5 mg PO DAILY 10/11/19 07/03/21 07/01/21 Pantoprazole [Protonix TAB] 40 mg PO QDAY 10/11/19 07/03/21 07/01/21 levETIRAcetam [Keppra TAB] 500 mg PO BID 10/11/19 07/03/21 07/01/21 Alogliptin Benzoate [Alogliptin] 25 mg PO QDAY 07/03/21 07/03/21 07/01/21 Cyanocobalamin (Vitamin B-12) 500 mcg PO QDAY 07/03/21 07/03/21 07/01/21 [Vitamin B-12] Ergocalciferol (Vitamin D2) 50 mcg PO QDAY 07/03/21 07/03/21 07/01/21 [Vitamin D2] Previous Rx's Medication Instructions Recorded Last Taken Type Clopidogrel Bisulfate [Plavix] 75 mg PO QDAY #30 tablet 11/27/18 07/01/21 Rx Metoprolol Xl [Metoprolol 50 mg PO QDAY #60 tablet 07/06/21 Unknown Rx SUCCINATE ER TAB] Clotrimazole 1% [Lotrimin 1%] 1 applic TP BID #1 tube 07/14/21 Unknown Rx Ondansetron [Zofran ODT TAB] 8 mg PO Q8HR 7 Days #21 tab.rapdis 02/25/22 Unknown Rx NS Allergies Allergy/AdvReac Type Severity Reaction Status Date / Time diphenhydramine Allergy Hives Verified 07/14/21 19:44 [From Benadryl] trimethobenzamide Allergy Unknown Verified 07/14/21 19:44 [From Tigan] ED Review of Systems Comment: All other systems reviewed and negative Gastrointestinal: abdominal pain, nausea, vomiting. denies: diarrhea, constipation ED Past Medical Hx - Past Medical History Hx Hypertension: Yes Hx CVA: Yes Hx Heart Attack/AMI: No Hx Congestive Heart Failure: No Hx Diabetes: Yes Hx Deep Vein Thrombosis: No Hx Pulmonary Embolism: No Hx GERD: No Hx Liver Disease: No Hx Renal Disease: No Hx Sickle Cell Disease: No Hx Arthritis: Yes Hx Headaches / Migraines: No Hx Seizures: Yes Hx Kidney Stones: No Hx Asthma: No Hx COPD: No Hx Tuberculosis: No Hx Dementia: Yes Hx HIV: No Additional medical history: hyperlipidemia, bypass x3 vessels - Surgical History Hx Coronary Stent: No Hx Open Heart Surgery: No Hx Pacemaker: No Hx Internal Defibrillator: No Hx Cholecystectomy: No Hx Appendectomy: No Hx Breast Surgery: No - Social History Smoking Status: Former Smoker Substance Use Type: None - Medications Home Medications: Home Medications Medication Instructions Recorded Confirmed Last Taken Type Rosuvastatin Calcium [Crestor] 40 mg PO DAILY 11/24/18 07/03/21 07/01/21 History Clopidogrel Bisulfate [Plavix] 75 mg PO QDAY #30 tablet 11/27/18 07/03/21 07/01/21 Rx Metoprolol Succinate 12.5 mg PO DAILY 10/11/19 07/03/21 07/01/21 History Pantoprazole [Protonix TAB] 40 mg PO QDAY 10/11/19 07/03/21 07/01/21 History levETIRAcetam [Keppra TAB] 500 mg PO BID 10/11/19 07/03/21 07/01/21 History Alogliptin Benzoate [Alogliptin] 25 mg PO QDAY 07/03/21 07/03/21 07/01/21 History Cyanocobalamin (Vitamin B-12) 500 mcg PO QDAY 07/03/21 07/03/21 07/01/21 History [Vitamin B-12] Ergocalciferol (Vitamin D2) 50 mcg PO QDAY 07/03/21 07/03/21 07/01/21 History [Vitamin D2] Metoprolol Xl [Metoprolol 50 mg PO QDAY #60 tablet 07/06/21 Unknown Rx SUCCINATE ER TAB] Clotrimazole 1% [Lotrimin 1%] 1 applic TP BID #1 tube 07/14/21 Unknown Rx Ondansetron [Zofran ODT TAB] 8 mg PO Q8HR 7 Days #21 tab.rapdis 02/25/22 Unk nown Rx NS ED Physical Exam - General Limitations: No Limitations General appearance: alert, in no apparent distress - Head Head exam: Present: normal inspection - Eye Eye exam: Present: normal appearance Pupils: Present: normal accommodation - ENT ENT exam: Present: normal exam, normal orophraynx, mucous membranes dry - Neck Neck exam: Present: normal inspection. Absent: tenderness - Respiratory Respiratory exam: Present: normal lung sounds bilaterally. Absent: respiratory distress, accessory muscle use - Cardiovascular Cardiovascular Exam: Present: regular rate, normal rhythm, normal heart sounds - GI/Abdominal GI/Abdominal exam: Present: soft, tenderness (Mild diffuse tenderness to palpat ion), normal bowel sounds. Absent: guarding, rebound - Extremities Exam Extremities exam: Present: normal inspection - Back Exam Back exam: Present: normal inspection. Absent: tenderness - Neurological Exam Neurological exam: Present: alert, oriented X3 - Psychiatric Psychiatric exam: Present: normal affect, normal mood - Skin Skin exam: Present: warm, normal color ED Course - Reevaluation(s) Reevaluation #1: 02/24/22 23:16 Brought in with nausea and vomiting associated with generalized weakness--differential diagnosis could be but not limited to gastritis causing the weakness due to electrolyte loss, alcohol also be small bowel obstruction or pancreatitis so to route out the above we will go ahead and start acute abdomen including CT scan of the abdomen without contrast. In the meantime we will go ahead and start IV fluid hydration and give Zofran 4 mg IV x1 for symptomatic relief Reevaluation #2: 02/25/22 04:27 Noted white count of 20,000 this is likely reactive--since there is no source of infection at this point we will continue to hydrate this patient and wait for urinalysis-- Reevaluation #3: 02/25/22 05:39 still waiting for this patient urinalysis -- but will get everything ready for discharge -- ED Medical Decision Making - Lab Data Result diagrams: 02/24/22 23:22 02/24/22 23:22 ED Disposition Clinical Impression: Nausea and vomiting, Generalized muscle weakness, Acute abdominal pain, Acute nausea with nonbilious vomiting, Acute UTI, Occlusion of terminal aorta Disposition: ADMITTED INPATIENT Is pt being admited?: No Does the pt Need Aspirin: No Condition: Stable Additional Instructions: Increase your daily fluid to help your hydration Start with bland diet to advance as tolerated Take your antiacid and nausea medicine to ease your symptoms Call and schedule follow-up with your primary doctor in the next 3 to 5 days for progress Please do not hesitate to call or return to emergency room if your symptoms worsen Prescriptions: Ondansetron [Zofran ODT TAB] 8 mg PO Q8HR 7 Days #21 tab.rapdis NS Referrals: OLGA JANE MD [Primary Care Provider] - 3-5 Days Time of Disposition: 05:40 <JORGE LUIS WALKER - Last Filed: 02/25/22 09:53> ED Review of Systems ROS: Stated complaint: WEAKNESS/VOMITING Other details as noted in HPI ED Course Vital Signs 02/24/22 22:32 Temperature 98.2 F Pulse Rate 94 H Respiratory 16 Rate Blood Pressure 136/68 [Right] O2 Sat by Pulse 100 Oximetry ED Medical Decision Making - Lab Data Result diagrams: 02/24/22 23:22 02/24/22 23:22 - Radiology Data Radiology results: report reviewed - Medical Decision Making 81-year-old male with a history of CVA, seizure, and diabetes brought in by EMS with nausea and vomiting associated with generalized body weakness that started this evening. According to patient's spouse arrived later on while patient has been examining reported that the emesis was about 6 times. Vomiting started after drinking Herbert and had a piece of chicken. Patient also reports some abdominal discomfort. No fever or chills reported. No other modifying or associated factors reported. Patient remained stable with a stable vital sign. Labs reviewed and showed leukocytosis of 20,000. Urine is strongly positive for UTI. Patient received Rocephin [address] abdomen and pelvis with IV contrast showed distal aortic, bilateral common iliac arteries occlusion with collaterals. I discussed the patient with Dr. Kvng Martínez, vascular surgeon on-call and he stated that he will see the patient for further management. I discussed the patient with Dr. Spicer, she advised admit the patient to Dr. Lang for further management. Critical Care Time: Yes Critical care time in (mins) excluding proc time.: 35 Critical care attestation.: If time is entered above; I have spent that time in minutes in the direct care of this critically ill patient, excluding procedure time. ED Disposition Is pt being admited?: Yes
[2022-02-24 23:43] LABS: Hemoglobin 11.8 gm/dl (11.8-15.2); Mean Corpuscular HGB Conc 32 % (32-34); Mean Corpuscular Volume 84 fl (84-94); Platelet Count 174 K/mm3 (140-440); Red Blood Count 4.42 M/mm3 (3.65-5.03); Red Cell Distribution Width 15.2 % (13.2-15.2)
[2022-02-24 23:45] LABS: INR 0.97 (0.87-1.13)
[2022-02-24 23:49] LABS: Alanine Aminotransferase 11 units/L (7-56); Albumin 4.1 g/dL (3.9-5); BUN/Creatinine Ratio 19; Blood Urea Nitrogen 23 mg/dL (9-20); Calcium 9.7 mg/dL (8.4-10.2); Hemolysis Index 4
[2022-02-25 02:44] LABS: Basophils % (Manual) 0 % (0.0-1.8); Eosinophils % (Manual) 0 % (0.0-4.3); Total Cells Counted 100
[2022-02-25 02:46] LABS: Ovalocytes 1+; Platelet Estimate Consistent w Auto
[2022-02-25 05:56] LABS: Bacteria,Urine 4+ /HPF (Negative); Bilirubin,Urine NEG (Negative); Blood,Urine SM (Negative); Color,Urine Yellow (Yellow); Mucus,Urine 1+ /HPF; Urobilinogen,Urine < 2.0 mg/dL (<2.0)
[2022-02-25] MEDS ORDERED: cefTRIAXone/NS 1 GM/50 ML 1 GM/50 ML BAG IV ONE (06:16)
--- NOTE | 2022-02-25 07:13 | Cat Scan Report ---
CT ABDOMEN AND PELVIS WITH CONTRAST INDICATION: abdominal pain. TECHNIQUE: Axial CT images were obtained through the abdomen and pelvis after 100 cc Omni [address] scans at this location are performed using CT dose reduction for ALARA by means of automated expos ure control. COMPARISON: None available. FINDINGS: LOWER CHEST: No significant abnormality. LIVER: No significant abnormality. GALLBLADDER: No significant abnormality. BILE DUCTS: No significant abnormality. PANCREAS: No significant abnormality. SPLEEN: No significant abnormality. ADRENALS: No significant abnormality. RIGHT KIDNEY and URETER: No significant abnormality. LEFT KIDNEY and URETER: No significant abnormality. STOMACH and SMALL BOWEL: No significant abnormality. COLON: Large amount of colonic stool with marked distention of rectal vault with fecal impaction adilia uring 9.3 cm transversely. APPENDIX: No significant abnormality. PERITONEUM: No free fluid. No free air. No fluid collection. LYMPH NODES: No significant adenopathy. AORTA and ARTERIES: Occlusion of distal abdominal aorta, right proximal common iliac artery, left com mon, external and internal iliac arteries with distal reconstitution of right distal common and left common femoral arteries via collaterals IVC and VEINS: No significant abnormality. URINARY BLADDER: No significant abnormality. REPRODUCTIVE ORGANS: No significant abnormality. ADDITIONAL FINDINGS: None. SKELETAL SYSTEM: No significant abnormality. IMPRESSION: 1. 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
[2022-02-25] MEDS ORDERED: ONDANSETRON 4 MG/2 ML INJ IV PRN (13:00)
[2022-02-25] MEDS ORDERED: METOCLOPRAMIDE 10 MG/2 ML INJ IV PRN (13:00)
[2022-02-25] MEDS: ACETAMINOPHEN 325 MG TAB PO PRN (16:21)
[2022-02-25] MEDS: HEPARIN 5,000 UNIT/1 ML VIAL SUB-Q SCH ×2 (16:22→21:36)
--- NOTE | 2022-02-25 20:31 | Consultation ---
History of Present Illness - Reason for Consult Consult date: 02/25/22 Infrarenal aortic occlusion Requesting physician: JORGE LUIS WALKER - History of Present Illness The patient is an 81-year-old male with history of diabetes, coronary artery disease, tobacco abuse who stopped smoking approximately 5 or 6 years ago. He presents to the emergency department with complaints of 1 day of abdominal pain associated with nausea and approximately 7-8 episodes of vomiting. His denies noting any hematemesis. She states he did have a fever of approximately 102 without any associated chills. He denies any coughing or chest pain. He denies having any abdominal pain at this time. 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 There were no additional significant findings on the CT scan. 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 He therefore has no complaints of buttock or lower extremity claudication. He has no additional complaints at this time. Past History Past Medical History: CAD, diabetes, GERD, hypertension, hyperlipidemia, PVD, stroke Past Surgical History: CABG Social history: Medications and Allergies Allergies Allergy/AdvReac Type Severity Reaction Status Date / Time diphenhydramine Allergy Hives Verified 07/14/21 19:44 [From Benadryl] trimethobenzamide Allergy Unknown Verified 07/14/21 19:44 [From Tigan] Home Medications Medication Instructions Recorded Confirmed Last Taken Type Rosuvastatin Calcium [Crestor] 40 mg PO DAILY 11/24/18 02/25/22 07/01/21 History Clopidogrel Bisulfate [Plavix] 75 mg PO QDAY #30 tablet 11/27/18 02/25/22 07/01/21 Rx Metoprolol Succinate 12.5 mg PO DAILY 10/11/19 02/25/22 07/01/21 History Pantoprazole [Protonix TAB] 40 mg PO QDAY 10/11/19 02/25/22 07/01/21 History levETIRAcetam [Keppra TAB] 500 mg PO BID 10/11/19 02/25/22 07/01/21 History Alogliptin Benzoate [Alogliptin] 25 mg PO QDAY 10/02/25/22 07/01/21 History Cyanocobalamin (Vitamin B-12) 500 mcg PO QDAY 07/03/21 02/25/22 07/01/21 History [Vitamin B-12] Ergocalciferol (Vitamin D2) 50 mcg PO QDAY 07/03/21 02/25/22 07/01/21 History [Vitamin D2] Metoprolol Xl [Metoprolol 50 mg PO QDAY #60 tablet 07/06/21 02/25/22 Unknown Rx SUCCINATE ER TAB] Clotrimazole 1% [Lotrimin 1%] 1 applic TP BID #1 tube 07/14/21 02/25/22 Unknown Rx Ondansetron [Zofran ODT TAB] 8 mg PO Q8HR 7 Days #21 tab.rapdis 02/25/22 Unknown Rx NS Active Meds: Active Medications Acetaminophen (Acetaminophen 325 Mg Tab) 650 mg PO Q4H PRN PRN Reason: Pain MILD(1-3)/Fever >100.5/DEJESUS Last Admin: 02/25/22 16:21 Dose: 650 mg Heparin Sodium (Porcine) (Heparin 5,000 Unit/1 Ml Vial) 5,000 unit SUB-Q Q12HR [facility] Last Admin: 02/25/22 16:22 Dose: Not Given Dextrose/Sodium Chloride (D5ns) 1,000 mls @ 125 mls/hr IV DIRECT [facility] Metoclopramide HCl (Metoclopramide 10 Mg/2 Ml Inj) 10 mg IV Q6H PRN PRN Reason: Nausea And Vomiting Morphine Sulfate (Morphine 2 Mg/1 Ml Inj) 2 mg IV Q4H PRN PRN Reason: Pain, Moderate (4-6) Ondansetron HCl (Ondansetron 4 Mg/2 Ml Inj) 4 mg IV Q8H PRN PRN Reason: Nausea And Vomiting Sodium Chloride (Sodium Chloride 0.9% 10 Ml Flush Syringe) 10 ml IV BID [facility] Last Admin: 02/25/22 16:22 Dose: 10 ml Sodium Chloride (Sodium Chloride 0.9% 10 Ml Flush Syringe) 10 ml IV PRN PRN PRN Reason: LINE FLUSH Review of Systems All systems: negative Exam - Constitutional Vitals: Temp Pulse Resp BP Pulse Ox 98.2 F 94 H 18 107/51 100 02/24/22 22:32 02/24/22 22:32 02/25/22 16:21 02/25/22 14:49 02/24/22 22:32 General appearance: Present: no acute distress - Respiratory Respiratory effort: normal - Cardiovascular Rhythm: regular - Extremities Extremity abnormal: pulses diminished (Nonpalpable femoral and pedal pulses bilaterally), other (Bilateral lower extremities are contracted) - Abdominal General gastrointestinal: Present: soft, non-distended Male genitourinary: Present: deferred - Rectal Rectal Exam: deferred - Musculoskeletal Musculoskeletal: strength equal bilaterally Results - Labs CBC & Chem 7: 02/24/22 23:22 02/24/22 23:22 Labs: Abnormal lab results 02/24/22 02/24/22 02/25/22 Range/Units 23:22 23:22 Unknown WBC 20.2 H (4.5-11.0) K/mm3 MCH 27 L (28-32) pg Seg Neuts % (Manual) 95.0 H (40.0-70.0) % Lymphocytes % (Manual) 3.0 L (13.4-35.0) % Seg Neutrophils # Man 19.2 H (1.8-7.7) K/mm3 Lymphocytes # (Manual) 0.6 L (1.2-5.4) K/mm3 Carbon Dioxide 21 L (22-30) mmol/L BUN 23 H (9-20) mg/dL Glucose 177 H (75-100) mg/dL Urine WBC (Auto) 57.0 H (0.0-6.0) /HPF Assessment and Plan The patient is an 81-year-old male who presented with abdominal pain associated with nausea and vomiting who underwent a CT of his abdomen pelvis with contrast and was 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 The occluded aorta was an incidental finding and is not associated with his abdominal pain. The patient does not ambulate and does not experience any claudication or any other sequela associated with his occluded aorta. I discussed the findings with the patient as well as his and there is no need for any intervention as there is only risk associated with repair, whether open or endovascular, and no benefit whatsoever.
[2022-02-25] MEDS: MORPHINE 2 MG/1 ML INJ IV PRN (20:39)
[2022-02-25] MEDS: D5W/0.9% NACL 1,000 ML IV SCH (20:40)
[2022-02-26] MEDS: MORPHINE 2 MG/1 ML INJ IV PRN ×3 (02:54→18:19)
--- NOTE | 2022-02-26 07:04 | History and Physical Report ---
History of Present Illness Date of examination: 02/25/22 Date of admission: 02/25/22 12:30 Chief complaint: Generalized weakness and dysuria History of present illness: 81-year-old male with a history of CVA, seizure, and diabetes brought in by EMS with nausea and vomiting associated with generalized body weakness that started this evening. According to patient's spouse arrived later on while patient has been examining reported that the emesis was about 6 times. Vomiting started after drinking Herbert and had a piece of chicken. Patient also reports some a bdominal discomfort. No fever or chills reported. No other modifying or associated factors reported. - Past Medical History Hx Hypertension: Yes Hx CVA: Yes Hx Arthritis: Yes Hx Tuberculosis: No Hx Dementia: Yes Additional medical history: hyperlipidemia, bypass x3 vessels - Surgical History --Coronary Stent: No - Social History Smoking Status: Former Smoker Substance Use Type: None - Medications Home Medications: Home Medications Medication Instructions Recorded Confirmed Last Taken Type Rosuvastatin Calcium [Crestor] 40 mg PO DAILY 11/24/18 07/03/21 07/01/21 History Clopidogrel Bisulfate [Plavix] 75 mg PO QDAY #30 tablet 11/27/18 07/03/21 07/01/21 Rx Metoprolol Succinate 12.5 mg PO DAILY 10/11/19 07/03/21 07/01/21 History Pantoprazole [Protonix TAB] 40 mg PO QDAY 10/11/19 07/03/21 07/01/21 History levETIRAcetam [Keppra TAB] 500 mg PO BID 10/11/19 07/03/21 07/01/21 History Alogliptin Benzoate [Alogliptin] 25 mg PO QDAY 07/03/21 07/03/21 07/01/21 Histo ry Cyanocobalamin (Vitamin B-12) 500 mcg PO QDAY 07/03/21 07/03/21 07/01/21 History [Vitamin B-12] Ergocalciferol (Vitamin D2) 50 mcg PO QDAY 07/03/21 07/03/21 07/01/21 History [Vitamin D2] Metoprolol Xl [Metoprolol 50 mg PO QDAY #60 tablet 07/06/21 Unknown Rx SUCCINATE ER TAB] Clotrimazole 1% [Lotrimin 1%] 1 applic TP BID #1 tube 07/14/21 Unknown Rx Ondansetron [Zofran ODT TAB] 8 mg PO Q8HR 7 Days #21 tab.rapdis 02/25/22 Unknown Rx NS Review of Systems Comment: All other systems reviewed and negative Gastrointestinal: abdominal pain, nausea, vomiting. denies: diarrhea, constipation Past History Past Medical History: CAD, diabetes, GERD, hypertension, hyperlipidemia, PVD, stroke Past Surgical History: CABG Social history: Medications and Allergies Allergies Allergy/AdvReac Type Severity Reaction Status Date / Time diphenhydramine Allergy Hives Verified 07/14/21 19:44 [From Benadryl] trimethobenzamide Allergy Unknown Verified 07/14/21 19:44 [From Tigan] Home Medications Medication Instructions Recorded Confirmed Last Taken Type Rosuvastatin Calcium [Crestor] 40 mg PO DAILY 11/24/18 02/25/22 07/01/21 History Clopidogrel Bisulfate [Plavix] 75 mg PO QDAY #30 tablet 11/27/18 02/25/22 07/01/21 Rx Metoprolol Succinate 12.5 mg PO DAILY 10/11/19 02/25/22 07/01/21 History Pantoprazole [Protonix TAB] 40 mg PO QDAY 10/11/19 02/25/22 07/01/21 History levETIRAcetam [Keppra TAB] 500 mg PO BID 10/11/19 02/25/22 07/01/21 History Alogliptin Benzoate [Alogliptin] 25 mg PO QDAY 07/03/21 02/25/22 07/01/21 History Cyanocobalamin (Vitamin B-12) 500 mcg PO QDAY 07/03/21 02/25/22 07/01/21 History [Vitamin B-12] Ergocalciferol (Vitamin D2) 50 mcg PO QDAY 07/03/21 02/25/22 07/01/21 History [Vitamin D2] Metoprolol Xl [Metoprolol 50 mg PO QDAY #60 tablet 07/06/21 02/25/22 Unknown Rx SUCCINATE ER TAB] Clotrimazole 1% [Lotrimin 1%] 1 applic TP BID #1 tube 07/14/21 02/25/22 Unknown Rx Ondansetron [Zofran ODT TAB] 8 mg PO Q8HR 7 Days #21 tab.rapdis 02/25/22 Unknown Rx NS Active Meds: Active Medications Acetaminophen (Acetaminophen 325 Mg Tab) 650 mg PO Q4H PRN PRN Reason: Pain MILD(1-3)/Fever >100.5/DEJESUS Last Admin: 02/25/22 16:21 Dose: 650 mg Heparin Sodium (Porcine) (Heparin 5,000 Unit/1 Ml Vial) 5,000 unit SUB-Q Q12HR [facility] Last Admin: 02/25/22 21:36 Dose: 5,000 unit Dextrose/Sodium Chloride (D5ns) 1,000 mls @ 125 mls/hr IV DIRECT [facility] Last Admin: 02/25/22 20:40 Dose: 125 mls/hr Metoclopramide HCl (Metoclopramide 10 Mg/2 Ml Inj) 10 mg IV Q6H PRN PRN Reason: Nausea And Vomiting Morphine Sulfate (Morphine 2 Mg/1 Ml Inj) 2 mg IV Q4H PRN PRN Reason: Pain, Moderate (4-6) Last Admin: 02/26/22 02:54 Dose: 2 mg Ondansetron HCl (Ondansetron 4 Mg/2 Ml Inj) 4 mg IV Q8H PRN PRN Reason: Nausea And Vomiting Sodium Chloride (Sodium Chloride 0.9% 10 Ml Flush Syringe) 10 ml IV BID [facility] Last Admin: 02/25/22 21:36 Dose: 10 ml Sodium Chloride (Sodium Chloride 0.9% 10 Ml Flush Syringe) 10 ml IV PRN PRN PRN Reason: LINE FLUSH Exam - Constitutional Vitals: Temp Pulse Resp BP Pulse Ox 97.3 F L 65 20 141/54 100 02/26/22 06:11 02/26/22 06:11 02/26/22 06:11 02/26/22 06:11 02/26/22 06:11 General appearance: Present: no acute distress, well-nourished - EENT Eyes: Present: PERRL ENT: hearing intact, clear oral mucosa - Neck Neck: Present: supple, normal ROM - Respiratory Respiratory effort: normal Respiratory: bilateral: CTA - Cardiovascular Heart rate: 76 Rhythm: regular Heart Sounds: Present: S1 & S2. Absent: rub, click - Extremities Extremities: pulses symmetrical, No edema Peripheral Pulses: within normal limits - Abdominal General gastrointestinal: Present: soft, non-tender, non-distended, normal bowel sounds Male genitourinary: Present: normal - Integumentary Integumentary: Present: clear, warm, dry - Musculoskeletal Musculoskeletal: gait normal, strength equal bilaterally - Psychiatric Psychiatric: appropriate mood/affect, intact judgment & insight - Neurologic Neurologic: CNII-XII intact, moves all extremities Results - Labs CBC & Chem 7: 02/24/22 23:22 02/24/22 23:22 Labs: Laboratory Last Values WBC 20.2 K/mm3 (4.5-11.0) H 02/24/22 23:22 RBC 4.42 M/mm3 (3.65-5.03) 02/24/22 23:22 Hgb 11.8 gm/dl (11.8-15.2) 02/24/22 23:22 Hct 37.0 % (35.5-45.6) 02/24/22 23:22 MCV 84 fl (84-94) 02/24/22 23:22 MCH 27 pg (28-32) L 02/24/22 23:22 MCHC 32 % (32-34) 02/24/22 23:22 RDW 15.2 % (13.2-15.2) 02/24/22 23:22 Plt Count 174 K/mm3 (140-440) 02/24/22 23:22 Add Manual Diff Complete 02/24/22 23:22 Total Counted 100 02/24/22 23:22 Seg Neutrophils % [facility] 02/24/22 23:22 Seg Neuts % (Manual) 95.0 % (40.0-70.0) H 02/24/22 23:22 Band Neutrophils % 0 % 02/24/22 23:22 Lymphocytes % (Manual) 3.0 % (13.4-35.0) L 02/24/22 23:22 Reactive Lymphs % (Man) 0 % 02/24/22 23:22 Monocytes % (Manual) 2.0 % (0.0-7.3) 02/24/22 23:22 Eosinophils % (Manual) 0 % (0.0-4.3) 02/24/22 23:22 Basophils % (Manual) 0 % (0.0-1.8) 02/24/22 23:22 Metamyelocytes % 0 % 02/24/22 23:22 Myelocytes % 0 % 02/24/22 23:22 Promyelocytes % 0 % 02/24/22 23:22 Blast Cells % 0 % 02/24/22 23:22 Nucleated RBC % Not Reportable 02/24/22 23:22 Seg Neutrophils # Man 19.2 K/mm3 (1.8-7.7) H 02/24/22 23:22 Band Neutrophils # 0.0 K/mm3 02/24/22 23:22 Lymphocytes # (Manual) 0.6 K/mm3 (1.2-5.4) L 02/24/22 23:22 Abs React Lymphs (Man) 0.0 K/mm3 02/24/22 23:22 Monocytes # (Manual) 0.4 K/mm3 (0.0-0.8) 02/24/22 23:22 Eosinophils # (Manual) 0.0 K/mm3 (0.0-0.4) 02/24/22 23:22 Basophils # (Manual) 0.0 K/mm3 (0.0-0.1) 02/24/22 23:22 Metamyelocytes # 0.0 K/mm3 02/24/22 23:22 Myelocytes # 0.0 K/mm3 02/24/22 23:22 Promyelocytes # 0.0 K/mm3 02/24/22 23:22 Blast Cells # 0.0 K/mm3 02/24/22 23:22 WBC Morphology Not Reportable 02/24/22 23:22 Hypersegmented Neuts Not Reportable 02/24/22 23:22 Hyposegmented Neuts Not Reportable 02/24/22 23:22 Hypogranular Neuts Not Reportable 02/24/22 23:22 Smudge Cells Not Reportable 02/24/22 23:22 Toxic Granulation Not Reportable 02/24/22 23:22 Toxic Vacuolation Not Reportable 02/24/22 23:22 Dohle Bodies Not Reportable 02/24/22 23:22 Pelger-Huet Anomaly Not Reportable 02/24/22 23:22 Yasir Rods Not Reportable 02/24/22 23:22 Platelet Estimate Consistent w auto 02/24/22 23:22 Clumped Platelets Not Reportable 02/24/22 23:22 Plt Clumps, EDTA Not Reportable 02/24/22 23:22 Large Platelets Not Reportable 02/24/22 23:22 Giant Platelets Not Reportable 02/24/22 23:22 Platelet Satelliting Not Reportable 02/24/22 23:22 Plt Morphology Comment Not Reportable 02/24/22 23:22 RBC Morphology Not Reportable 02/24/22 23:22 Dimorphic RBCs Not Reportable 02/24/22 23:22 Polychromasia Not Reportable 02/24/22 23:22 Hypochromasia Not Reportable 02/24/22 23:22 Poikilocytosis Not Reportable 02/24/22 23:22 Anisocytosis Not Reportable 02/24/22 23:22 Microcytosis Not Reportable 02/24/22 23:22 Macrocytosis Not Reportable 02/24/22 23:22 Spherocytes Not Reportable 02/24/22 23:22 Pappenheimer Bodies Not Reportable 02/24/22 23:22 Sickle Cells Not Reportable 02/24/22 23:22 Target Cells Not Reportable 02/24/22 23:22 Tear Drop Cells Not Reportable 02/24/22 23:22 Ovalocytes 1+ 02/24/22 23:22 Helmet Cells Not Reportable 02/24/22 23:22 Levy-[place] Bodies Not Reportable 02/24/22 23:22 [place] Rings Not Reportable 02/24/22 23:22 Simi Cells Not Reportable 02/24/22 23:22 Bite Cells Not Reportable 02/24/22 23:22 Crenated Cell Not Reportable 02/24/22 23:22 Elliptocytes Not Reportable 02/24/22 23:22 Acanthocytes (Spur) Not Reportable 02/24/22 23:22 Rouleaux Not Reportable 02/24/22 23:22 Hemoglobin C Crystals Not Reportable 02/24/22 23:22 Schistocytes Not Reportable 02/24/22 23:22 Malaria parasites Not Reportable 02/24/22 23:22 Craig Bodies Not Reportable 02/24/22 23:22 Hem Pathologist Commnt No 02/24/22 23:22 PT 13.9 Sec. (12.2-14.9) 02/24/22 23:22 INR 0.97 (0.87-1.13) 02/24/22 23:22 Sodium 141 mmol/L (137-145) 02/24/22 23:22 Potassium 3.7 mmol/L (3.6-5.0) 02/24/22 23:22 Chloride 106.7 mmol/L (98-107) 02/24/22 23:22 Carbon Dioxide 21 mmol/L (22-30) L 02/24/22 23:22 Anion Gap 17 mmol/L 02/24/22 23:22 BUN 23 mg/dL (9-20) H 02/24/22 23:22 Creatinine 1.2 mg/dL (0.8-1.3) 02/24/22 23:22 Estimated GFR > 60 ml/min 02/24/22 23:22 BUN/Creatinine Ratio 19 % 02/24/22 23:22 Glucose 177 mg/dL (75-100) H 02/24/22 23:22 Calcium 9.7 mg/dL (8.4-10.2) 02/24/22 23:22 Total Bilirubin 0.70 mg/dL (0.1-1.2) 02/24/22 23:22 AST 14 units/L (5-40) 02/24/22 23:22 ALT 11 units/L (7-56) 02/24/22 23:22 Alkaline Phosphatase 55 units/L (35-129) 02/24/22 23:22 Total Protein 7.0 g/dL (6.3-8.2) 02/24/22 23:22 Albumin 4.1 g/dL (3.9-5) 02/24/22 23:22 Albumin/Globulin Ratio 1.4 % 02/24/22 23:22 Urine Color Yellow (Yellow) 02/25/22 Unknown Urine Turbidity Slightly-cloudy (Clear) 02/25/22 Unknown Urine pH 5.0 (5.0-7.0) 02/25/22 Unknown Ur Specific [place] 1.011 (1.003-1.030) 02/25/22 Unknown Urine Protein 30 mg/dl mg/dL (Negative) 02/25/22 Unknown Urine Glucose (UA) Neg mg/dL (Negative) 02/25/22 Unknown Urine Ketones Neg mg/dL (Negative) 02/25/22 Unknown Urine Blood Sm (Negative) 02/25/22 Unknown Urine Nitrite Neg (Negative) 02/25/22 Unknown Urine Bilirubin Neg (Negative) 02/25/22 Unknown Urine Urobilinogen < 2.0 mg/dL (<2.0) 02/25/22 Unknown Ur Leukocyte Esterase Lg (Negative) 02/25/22 Unknown Urine WBC (Auto) 57.0 /HPF (0.0-6.0) H 02/25/22 Unknown Urine RBC (Auto) 4.0 /HPF (0.0-6.0) 02/25/22 Unknown U Epithel Cells (Auto) 1.0 /HPF (0-13.0) 02/25/22 Unknown Urine Bacteria (Auto) 4+ /HPF (Negative) 02/25/22 Unknown Urine Mucus 1+ /HPF 02/25/22 Unknown Urine Yeast (Budding) Few /HPF 02/25/22 Unknown Microbiology: Microbiology 02/25/22 10:00 Peripheral/Venous Blood Culture - Preliminary Culture in Progress 02/25/22 09:51 Peripheral/Venous Blood Culture - Preliminary Culture in Progress Veliz/IV: Voiding Method Condom Catheter Assessment and Plan Assessment and plan: Full code Advance Directives: Yes - Patient Problems (1) SIRS (systemic inflammatory response syndrome) Current Visit: Yes Status: Acute Plan to address problem: Leukocytosis Consistent with Sirs (2) Acute UTI Current Visit: Yes Status: Acute Plan to address problem: Continue IV Rocephin till cultures available (3) HTN (hypertension) Current Visit: Yes Status: Chronic Qualifiers: Hypertension type: primary hypertension Qualified Code(s): I10 - Essential (primary) hypertension Plan to address problem: Continue antihypertensives and adjust medications (4) T2DM (type 2 diabetes mellitus) Current Visit: Yes Status: Chronic 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 Patient is full code. Patient acknowledges understanding and agreement with care plan. +30 minutes.
[2022-02-26] MEDS ORDERED: METOCLOPRAMIDE 10 MG/2 ML INJ IV PRN (08:00)
[2022-02-26 08:58] LABS: Basophils % (Auto) 0.1 % (0.0-1.8); Eosinophils # (Auto) 0.2 K/mm3 (0.0-0.4); Eosinophils % (Auto) 1.1 % (0.0-4.3); Hematocrit 33.7 % (35.5-45.6); Hemoglobin 11.1 gm/dl (11.8-15.2); Mean Corpuscular HGB Conc 33 % (32-34); Mean Corpuscular Volume 83 fl (84-94); Monocytes # (Auto) 0.9 K/mm3 (0.0-0.8); Monocytes % (Auto) 4.9 % (0.0-7.3); Platelet Count 147 K/mm3 (140-440); Red Blood Count 4.04 M/mm3 (3.65-5.03); Red Cell Distribution Width 15.6 % (13.2-15.2)
[2022-02-26 09:02] LABS: Alanine Aminotransferase 43 units/L (7-56); Albumin 3.5 g/dL (3.9-5); BUN/Creatinine Ratio 21; Blood Urea Nitrogen 21 mg/dL (9-20); Calcium 8.9 mg/dL (8.4-10.2); Hemolysis Index 7
[2022-02-26] MEDS: cefTRIAXone/NS 2 GM/100 ML 2 GM/100 ML BAG IV SCH (09:07)
[2022-02-26] MEDS: HEPARIN 5,000 UNIT/1 ML VIAL SUB-Q SCH ×2 (09:07→21:50)
--- NOTE | 2022-02-26 10:41 | Progress Note ---
Assessment and Plan Assessment and plan: The patient is an 81-year-old male with history of diabetes, coronary artery disease, GERD, hypertension, hyperlipidemia and tobacco abuse who stopped smoking approximately 5 or 6 years ago. He presents to the emergency department with complaints of 1 day of abdominal pain associated with nausea and ap proximately 7-8 episodes of vomiting. His denies noting any hematemesis. She states he did have a fever of approximately 102 without any associated chills. He denies any coughing or chest pain. He denies having any abdominal pain at this time. 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 There were no additional significant findings on the CT scan. 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 He therefore has no complaints of buttock or lower extremity claudication. UTI SIRS Hypertension Diabetes mellitus type 2 CAD GERD Hyperlipidemia 02/26/2022. Vascular surgery evaluated the patient and felt that the occluded aorta was an incidental finding and is not associated with his abdominal pain. The patient does not ambulate and does not experience any claudication or any other sequela associated with his occluded aorta. No intervention warranted. Continue IV antibiotics for UTI. Patient denies any abdominal pain or otherwise. Nausea vomiting has resolved. Leukocytosis has improved. Anticipate discharge in a.m. History Interval history: No new issues overnight Hospitalist Physical - Constitutional Vitals: Temp Pulse Resp BP Pulse Ox 97.3 F L 65 20 141/54 96 02/26/22 06:11 02/26/22 06:11 02/26/22 06:11 02/26/22 06:11 02/26/22 07:56 General appearance: Present: no acute distress, well-nourished - EENT Eyes: Present: PERRL, EOM intact ENT: hearing intact, clear oral mucosa, dentition normal - Neck Neck: Present: supple, normal ROM - Respiratory Respiratory effort: normal Respiratory: bilateral: CTA - Cardiovascular Rhythm: regular Heart Sounds: Present: S1 & S2. Absent: gallop, rub - Extremities Extremities: no ischemia, No edema, Full ROM - Abdominal General gastrointestinal: soft, non-tender, non-distended, normal bowel sounds - Integumentary Integumentary: Present: clear, warm, dry - Neurologic Neurologic: CNII-XII intact, moves all extremities Results - Labs CBC & Chem 7: 02/26/22 07:01 02/26/22 07:01 Labs: Laboratory Last Values WBC 17.5 K/mm3 (4.5-11.0) H 02/26/22 07:01 RBC 4.04 M/mm3 (3.65-5.03) 02/26/22 07:01 Hgb 11.1 gm/dl (11.8-15.2) L 02/26/22 07:01 Hct 33.7 % (35.5-45.6) L 02/26/22 07:01 MCV 83 fl (84-94) L 02/26/22 07:01 MCH 27 pg (28-32) L 02/26/22 07:01 MCHC 33 % (32-34) 02/26/22 07:01 RDW 15.6 % (13.2-15.2) H 02/26/22 07:01 Plt Count 147 K/mm3 (140-440) 02/26/22 07:01 Lymph % (Auto) 6.0 % (13.4-35.0) L 02/26/22 07:01 Person % (Auto) 4.9 % (0.0-7.3) 02/26/22 07:01 Eos % (Auto) 1.1 % (0.0-4.3) 02/26/22 07:01 Baso % (Auto) 0.1 % (0.0-1.8) 02/26/22 07:01 Lymph # (Auto) 1.0 K/mm3 (1.2-5.4) L 02/26/22 07:01 Person # (Auto) 0.9 K/mm3 (0.0-0.8) H 02/26/22 07:01 Eos # (Auto) 0.2 K/mm3 (0.0-0.4) 02/26/22 07:01 Baso # (Auto) 0.0 K/mm3 (0.0-0.1) 02/26/22 07:01 Add Manual Diff Complete 02/24/22 23:22 Total Counted 100 02/24/22 23:22 Seg Neutrophils % Handkerchief Folder 02/26/22 07:01 Seg Neuts % (Manual) 95.0 % (40.0-70.0) H 02/24/22 23:22 Band Neutrophils % 0 % 02/24/22 23:22 Lymphocytes % (Manual) 3.0 % (13.4-35.0) L 02/24/22 23:22 Reactive Lymphs % (Man) 0 % 02/24/22 23:22 Monocytes % (Manual) 2.0 % (0.0-7.3) 02/24/22 23:22 Eosinophils % (Manual) 0 % (0.0-4.3) 02/24/22 23:22 Basophils % (Manual) 0 % (0.0-1.8) 02/24/22 23:22 Metamyelocytes % 0 % 02/24/22 23: Myelocytes % 0 % 02/24/22 23: Promyelocytes % 0 % 02/24/22 23:22 Blast Cells % 0 % 02/24/22 23:22 Nucleated RBC % Not Reportable 02/24/22 23:22 Seg Neutrophils # 15.4 K/mm3 (1.8-7.7) H 02/26/22 07:01 Seg Neutrophils # Man 19.2 K/mm3 (1.8-7.7) H 02/24/22 23:22 Band Neutrophils # 0.0 K/mm3 02/24/22 23:22 Lymphocytes # (Manual) 0.6 K/mm3 (1.2-5.4) L 02/24/22 23:22 Abs React Lymphs (Man) 0.0 K/mm3 02/24/22 23:22 Monocytes # (Manual) 0.4 K/mm3 (0.0-0.8) 02/24/22 23:22 Eosinophils # (Manual) 0.0 K/mm3 (0.0-0.4) 02/24/22 23:22 Basophils # (Manual) 0.0 K/mm3 (0.0-0.1) 02/24/22 23:22 Metamyelocytes # 0.0 K/mm3 02/24/22 23:22 Myelocytes # 0.0 K/mm3 02/24/22 23:22 Promyelocytes # 0.0 K/mm3 02/24/22 23:22 Blast Cells # 0.0 K/mm3 02/24/22 23:22 WBC Morphology Not Reportable 02/24/22 23:22 Hypersegmented Neuts Not Reportable 02/24/22 23:22 Hyposegmented Neuts Not Reportable 02/24/22 23:22 Hypogranular Neuts Not Reportable 02/24/22 23:22 Smudge Cells Not Reportable 02/24/22 23:22 Toxic Granulation Not Reportable 02/24/22 23:22 Toxic Vacuolation Not Reportable 02/24/22 23:22 Dohle Bodies Not Reportable 02/24/22 23:22 Pelger-Huet Anomaly Not Reportable 02/24/22 23:22 Yasir Rods Not Reportable 02/24/22 23:22 Platelet Estimate Consistent w auto 02/24/22 23:22 Clumped Platelets Not Reportable 02/24/22 23:22 Plt Clumps, EDTA Not Reportable 02/24/22 23:22 Large Platelets Not Reportable 02/24/22 23:22 Giant Platelets Not Reportable 02/24/22 23:22 Platelet Satelliting Not Reportable 02/24/22 23:22 Plt Morphology Comment Not Reportable 02/24/22 23:22 RBC Morphology Not Reportable 02/24/22 23:22 Dimorphic RBCs Not Reportable 02/24/22 23:22 Polychromasia Not Reportable 02/24/22 23:22 Hypochromasia Not Reportable 02/24/22 23:22 Poikilocytosis Not Reportable 02/24/22 23:22 Anisocytosis Not Reportable 02/24/22 23:22 Microcytosis Not Reportable 02/24/22 23:22 Macrocytosis Not Reportable 02/24/22 23:22 Spherocytes Not Reportable 02/24/22 23:22 Pappenheimer Bodies Not Reportable 02/24/22 23:22 Sickle Cells Not Reportable 02/24/22 23:22 Target Cells Not Reportable 02/24/22 23:22 Tear Drop Cells Not Reportable 02/24/22 23:22 Ovalocytes 1+ 02/24/22 23:22 Helmet Cells Not Reportable 02/24/22 23:22 Levy-[place] Bodies Not Reportable 02/24/22 23:22 [place] Rings Not Reportable 02/24/22 23:22 [place] Cells Not Reportable 02/24/22 23:22 Bite Cells Not Reportable 02/24/22 23:22 Crenated Cell Not Reportable 02/24/22 23:22 Elliptocytes Not Reportable 02/24/22 23:22 Acanthocytes (Spur) Not Reportable 02/24/22 23:22 Rouleaux Not Reportable 02/24/22 23:22 Hemoglobin C Crystals Not Reportable 02/24/22 23:22 Schistocytes Not Reportable 02/24/22 23:22 Malaria parasites Not Reportable 02/24/22 23:22 Craig Bodies Not Reportable 02/24/22 23:22 Hem Pathologist Commnt No 02/24/22 23:22 PT 13.9 Sec. (12.2-14.9) 02/24/22 23:22 INR 0.97 (0.87-1.13) 02/24/22 23:22 Sodium 142 mmol/L (137-145) 02/26/22 07:01 Potassium 3.8 mmol/L (3.6-5.0) 02/26/22 07:01 Chloride 111.8 mmol/L (98-107) H 02/26/22 07:01 Carbon Dioxide 23 mmol/L (22-30) 02/26/22 07:01 Anion Gap 11 mmol/L 02/26/22 07:01 BUN 21 mg/dL (9-20) H 02/26/22 07:01 Creatinine 1.0 mg/dL (0.8-1.3) 02/26/22 07:01 Estimated GFR > 60 ml/min 02/26/22 07:01 BUN/Creatinine Ratio 21 % 02/26/22 07:01 Glucose 150 mg/dL (75-100) H 02/26/22 07:01 Calcium 8.9 mg/dL (8.4-10.2) 02/26/22 07:01 Total Bilirubin 0.40 mg/dL (0.1-1.2) 02/26/22 07:01 AST 22 units/L (5-40) 02/26/22 07:01 ALT 43 units/L (7-56) 02/26/22 07:01 Alkaline Phosphatase 48 units/L (35-129) 02/26/22 07:01 Total Protein 6.5 g/dL (6.3-8.2) 02/26/22 07:01 Albumin 3.5 g/dL (3.9-5) L 02/26/22 07:01 Albumin/Globulin Ratio 1.2 % 02/26/22 07:01 Urine Color Yellow (Yellow) 02/25/22 Unknown Urine Turbidity Slightly-cloudy (Clear) 02/25/22 Unknown Urine pH 5.0 (5.0-7.0) 02/25/22 Unknown Ur Specific [place] 1.011 (1.003-1.030) 02/25/22 Unknown Urine Protein 30 mg/dl mg/dL (Negative) 02/25/22 Unknown Urine Glucose (UA) Neg mg/dL (Negative) 02/25/22 Unknown Urine Ketones Neg mg/dL (Negative) 02/25/22 Unknown Urine Blood Sm (Negative) 02/25/22 Unknown Urine Nitrite Neg (Negative) 02/25/22 Unknown Urine Bilirubin Neg (Negative) 02/25/22 Unknown Urine Urobilinogen < 2.0 mg/dL (<2.0) 02/25/22 Unknown Ur Leukocyte Esterase Lg (Negative) 02/25/22 Unknown Urine WBC (Auto) 57.0 /HPF (0.0-6.0) H 02/25/22 Unknown Urine RBC (Auto) 4.0 /HPF (0.0-6.0) 02/25/22 Unknown U Epithel Cells (Auto) 1.0 /HPF (0-13.0) 02/25/22 Unknown Urine Bacteria (Auto) 4+ /HPF (Negative) 02/25/22 Unknown Urine Mucus 1+ /HPF 02/25/22 Unknown Urine Yeast (Budding) Few /HPF 02/25/22 Unknown Microbiology: Microbiology 02/25/22 10:00 Peripheral/Venous Blood Culture - Preliminary Culture in Progress 02/25/22 09:51 Peripheral/Venous Blood Culture - Preliminary Culture in Progress Veliz/IV: Voiding Method Condom Catheter Active Medications - Current Medications Current Medications: Generic Name Dose Route Start Last Admin Trade Name Freq PRN Reason Stop Dose Admin Acetaminophen 650 mg 02/25/22 13:00 02/25/22 16:21 Acetaminophen 325 Mg Tab PO 650 mg Q4H PRN Administration Pain MILD(1-3)/Fever >100.5/DEJESUS Heparin Sodium (Porcine) 5,000 unit 02/25/22 13:00 02/26/22 09:07 Heparin 5,000 Unit/1 Ml Vial SUB-Q 5,000 unit Q12HR CHRISTIE Administration Dextrose/Sodium Chloride 1,000 mls @ 125 mls/hr 02/25/22 13:00 02/25/22 20:40 D5ns IV 125 mls/hr DIRECT CHRISTIE Administration Ceftriaxone Sodium 2 gm in 100 mls @ 200 mls/hr 02/26/22 08:00 02/26/22 09:07 Rocephin/Ns 2 Gm/100 Ml IV 200 mls/hr Q24HR CHRISTIE Administration Protocol Metoclopramide HCl 5 mg 02/26/22 08:00 Metoclopramide 10 Mg/2 Ml Inj IV Q6H PRN Nausea And Vomiting Morphine Sulfate 2 mg 02/25/22 13:00 02/26/22 09:07 Morphine 2 Mg/1 Ml Inj IV 2 mg Q4H PRN Administration Pain, Moderate (4-6) Ondansetron HCl 4 mg 02/25/22 13:00 Ondansetron 4 Mg/2 Ml Inj IV Q8H PRN Nausea And Vomiting Sodium Chloride 10 ml 02/25/22 13:00 02/26/22 09:07 Sodium Chloride 0.9% 10 Ml Flush Syringe IV 10 ml BID CHRISTIE Administration Sodium Chloride 10 ml 02/25/22 13:00 Sodium Chloride 0.9% 10 Ml Flush Syringe IV PRN PRN LINE FLUSH
[2022-02-26] MEDS ORDERED: DEXTROSE 50% IN WATER (25GM) 50 ML SYRINGE IV PRN (11:25)
[2022-02-26] MEDS ORDERED: METOPROLOL SUCCINATE XL 25 MG TAB PO SCH (12:00)
[2022-02-26] MEDS: METOPROLOL SUCCINATE XL 25 MG TAB PO SCH (12:28)
[2022-02-26] MEDS: D5W/0.9% NACL 1,000 ML IV SCH (12:28)
[2022-02-26] MEDS: PANTOPRAZOLE 40 MG TAB PO SCH (12:29)
[2022-02-26] MEDS: INSULIN REGULAR, HUMAN 100 UNITS/1 ML SUB-Q SCH ×2 (12:29→16:59)
[2022-02-26] MEDS: levETIRAcetam 500 MG TAB PO SCH ×2 (12:29→21:50)
[2022-02-26] MEDS: ACETAMINOPHEN 325 MG TAB PO PRN (12:33)
[2022-02-26] MEDS ORDERED: CLOTRIMAZOLE 1% CREAM 15 GM TP SCH (22:00)
[2022-02-27] MEDS: INSULIN REGULAR, HUMAN 100 UNITS/1 ML SUB-Q SCH ×4 (00:05→18:08)
[2022-02-27] MEDS: D5W/0.9% NACL 1,000 ML IV SCH (05:16)
--- NOTE | 2022-02-27 09:31 | Discharge Summary ---
Providers - Providers Date of Admission: 02/25/22 12:30 Date of discharge: 02/27/22 Attending physician: ELENI TRUJILLO 02/25/22 07:36 Consult to Physician [CONS] Stat Comment: Consulting Provider: YOLA RICHARDSON Physician Instructions: Reason For Exam: Distal aortic occlusion 02/26/22 11:02 Physical Therapy Evaluation and Treat [CONS] Routine Comment: Reason For Exam: GEn weakness Primary care physician: OLGA JANE Hospitalization Reason for admission: N/V, UTI Condition: Stable Hospital course: The patient is an 81-year-old male with history of diabetes, coronary artery disease, GERD, hypertension, hyperlipidemia and tobacco abuse who stopped smoking approximately 5 or 6 years ago. He presented to the emergency department with complaints of 1 day of abdominal pain associated with nausea and approximately 7-8 episodes of vomiting. His denied noting any hematemesis. She stated he did have a fever of approximately 102 without any associated chills. He denied any coughing or chest pain. He denies having any abdominal pain at this time. 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 There were no additional significant findings on the CT scan. 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 He therefore has no complaints of buttock or lower extremity claudication. The patient was admitted with diagnosis below: UTI SIRS Hypertension Diabetes mellitus type 2 CAD GERD Hyperlipidemia Vascular surgery evaluated the patient and felt that the occluded aorta was an incidental finding and is not associated with his abdominal pain. The patient does not ambulate and does not experience any claudication or any other sequela associated with his occluded aorta. No intervention warranted. Continue IV antibiotics for UTI. Patient denies any abdominal pain or otherwise. Nausea vomiting has resolved. Leukocytosis has improved. The patient is felt to have received maximal hospital benefit and will be discharged home. Dedicated discharge time 32 minutes Disposition: HOME / SELF CARE / HOMELESS Final Discharge Diagnosis (Prints w/discharge instructions): UTI. SIRS. Hypertension. Diabetes mellitus type 2. CAD. GERD. Hyperlipidemia Core Measure Documentation - Palliative Care Palliative Care/ Comfort Measures: Not Applicable - Core Measures Any of the following diagnoses?: none Exam - Constitutional Vitals: Temp Pulse Resp BP Pulse Ox 99.1 F 68 19 179/84 98 02/27/22 05:20 02/27/22 05:20 02/27/22 05:20 02/27/22 05:20 02/27/22 05:20 General appearance: Present: no acute distress, well-nourished - EENT Eyes: Present: PERRL ENT: hearing intact, clear oral mucosa - Neck Neck: Present: supple, normal ROM - Respiratory Respiratory effort: normal Respiratory: bilateral: CTA - Cardiovascular Heart Sounds: Present: S1 & S2. Absent: rub, click - Extremities Extremities: pulses symmetrical, No edema Peripheral Pulses: within normal limits - Abdominal General gastrointestinal: Present: soft, non-tender, non-distended, normal bowel sounds Male genitourinary: Present: normal - Integumentary Integumentary: Present: clear, warm, dry - Musculoskeletal Musculoskeletal: gait normal, strength equal bilaterally - Psychiatric Psychiatric: appropriate mood/affect, intact judgment & insight - Neurologic Neurologic: CNII-XII intact, moves all extremities Plan Activity: advance as tolerated Weight Bearing Status: Weight Bear as Tolerated Diet: regular Follow up with: OLGA JANE MD [Primary Care Provider] - 3-5 Days Prescriptions: Ciprofloxacin HCl 500 mg PO BID #14 Ondansetron [Zofran ODT TAB] 8 mg PO Q8HR 7 Days #21 tab.tim GORMAN
[2022-02-27] MEDS ORDERED: CYANOCOBALAMIN 500 MCG PO SCH (10:00)
[2022-02-27] MEDS ORDERED: CHOLECALCIFEROL (VIT D3) 400 UNIT TAB PO SCH (10:00)
[2022-02-27] MEDS ORDERED: METOPROLOL SUCCINATE 12.5 MG PO SCH (10:00)
[2022-02-27] MEDS ORDERED: ERGOCALCIFEROL 50 MCG PO SCH (10:00)
[2022-02-27] MEDS ORDERED: NON-FORMULARY EACH (Rosuvastatin Calcium [Crestor] 40 MG Tablet) PO SCH (10:00)
[2022-02-27] MEDS ORDERED: ALOGLIPTIN BENZOATE 25 MG PO SCH (10:00)
[2022-02-27 10:15] LABS: Calcium 8.3 mg/dL (8.4-10.2)
[2022-02-27 10:20] LABS: Basophils % (Auto) 0.1 % (0.0-1.8); Eosinophils # (Auto) 0.1 K/mm3 (0.0-0.4); Eosinophils % (Auto) 0.6 % (0.0-4.3); Hematocrit 36.6 % (35.5-45.6); Hemoglobin 11.7 gm/dl (11.8-15.2); Lymphocytes # (Auto) 0.7 K/mm3 (1.2-5.4); Lymphocytes % (Auto) 6.6 % (13.4-35.0); Mean Corpuscular HGB Conc 32 % (32-34); Mean Corpuscular Volume 85 fl (84-94); Monocytes # (Auto) 0.6 K/mm3 (0.0-0.8); Monocytes % (Auto) 5.8 % (0.0-7.3); Platelet Count 178 K/mm3 (140-440); Red Blood Count 4.32 M/mm3 (3.65-5.03); Red Cell Distribution Width 15.5 % (13.2-15.2)
[2022-02-27] MEDS: METOPROLOL SUCCINATE XL 25 MG TAB PO SCH (11:23)
[2022-02-27] MEDS: CYANOCOBALAMIN (VIT B-12) 1000 MCG TAB PO SCH (11:24)
[2022-02-27] MEDS: CHOLECALCIFEROL (VIT D3) 1000 UNIT (25 mcg) TAB PO SCH (11:26)
[2022-02-27] MEDS: cefTRIAXone/NS 2 GM/100 ML 2 GM/100 ML BAG IV SCH (11:27)
[2022-02-27] MEDS: CLOPIDOGREL 75 MG TAB PO SCH (11:30)
[2022-02-27] MEDS: levETIRAcetam 500 MG TAB PO SCH ×2 (11:30→21:39)
[2022-02-27] MEDS: PANTOPRAZOLE 40 MG TAB PO SCH (11:30)
[2022-02-27] MEDS: HEPARIN 5,000 UNIT/1 ML VIAL SUB-Q SCH ×2 (11:35→22:00)
[2022-02-27] MEDS: ACETAMINOPHEN 325 MG TAB PO PRN (12:30)
--- NOTE | 2022-02-27 14:08 | Progress Note ---
Assessment and Plan Assessment and plan: The patient is an 81-year-old male with history of diabetes, coronary artery disease, GERD, hypertension, hyperlipidemia and tobacco abuse who stopped smoking approximately 5 or 6 years ago. He presents to the emergency department with complaints of 1 day of abdominal pain associated with nausea and ap proximately 7-8 episodes of vomiting. His denies noting any hematemesis. She states he did have a fever of approximately 102 without any associated chills. He denies any coughing or chest pain. He denies having any abdominal pain at this time. 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 There were no additional significant findings on the CT scan. 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 He therefore has no complaints of buttock or lower extremity claudication. UTI SIRS Acute kidney injury Hypertension Diabetes mellitus type 2 CAD GERD Hyperlipidemia 02/26/2022. Vascular surgery evaluated the patient and felt that the occluded ao rta was an incidental finding and is not associated with his abdominal pain. The patient does not ambulate and does not experience any claudication or any other sequela associated with his occluded aorta. No intervention warranted. Continue IV antibiotics for UTI. Patient denies any abdominal pain or otherwise. Nausea vomiting has resolved. Leukocytosis has improved. Anticipate discharge in a.m. 02/27/2022. Anticipated discharge for this morning but BMP indicated acute kidney injury with elevation of creatinine. Etiology may be secondary to contrast nephropathy +/- vasomotor nephropathy/dehydration. We will continue IV fluid hydration with normal saline. Bilateral renal ultrasound. However, CT scan of the abdomen pelvis was negative. Nephrology consultation History Interval history: No new issues overnight Hospitalist Physical - Constitutional Vitals: Temp Pulse Resp BP Pulse Ox 98.8 F 76 16 184/95 97 02/27/22 11:11 02/27/22 11:11 02/27/22 11:11 02/27/22 11:11 02/27/22 11:11 General appearance: Present: no acute distress, well-nourished - EENT Eyes: Present: PERRL, EOM intact ENT: hearing intact, clear oral mucosa, dentition normal - Neck Neck: Present: supple, normal ROM - Respiratory Respiratory effort: normal Respiratory: bilateral: CTA - Cardiovascular Rhythm: regular Heart Sounds: Present: S1 & S2. Absent: gallop, rub - Extremities Extremities: no ischemia, No edema, Full ROM - Abdominal General gastrointestinal: soft, non-tender, non-distended, normal bowel sounds - Integumentary Integumentary: Present: clear, warm, dry - Neurologic Neurologic: CNII-XII intact, moves all extremities Results - Labs CBC & Chem 7: 02/27/22 09:16 02/27/22 09:16 Labs: Laboratory Last Values WBC 10.6 K/mm3 (4.5-11.0) 02/27/22 09:16 RBC 4.32 M/mm3 (3.65-5.03) 02/27/22 09:16 Hgb 11.7 gm/dl (11.8-15.2) L 02/27/22 09:16 Hct 36.6 % (35.5-45.6) 02/27/22 09:16 MCV 85 fl (84-94) 02/27/22 09:16 MCH 27 pg (28-32) L 02/27/22 09:16 MCHC 32 % (32-34) 02/27/22 09:16 RDW 15.5 % (13.2-15.2) H 02/27/22 09:16 Plt Count 178 K/mm3 (140-440) 02/27/22 09:16 Lymph % (Auto) 6.6 % (13.4-35.0) L 02/27/22 09:16 D[place]y % (Auto) 5.8 % (0.0-7.3) 02/27/22 09:16 Eos % (Auto) 0.6 % (0.0-4.3) 02/27/22 09:16 Baso % (Auto) 0.1 % (0.0-1.8) 02/27/22 09:16 Lymph # (Auto) 0.7 K/mm3 (1.2-5.4) L 02/27/22 09:16 [place]y # (Auto) 0.6 K/mm3 (0.0-0.8) 02/27/22 09:16 Eos # (Auto) 0.1 K/mm3 (0.0-0.4) 02/27/22 09:16 Baso # (Auto) 0.0 K/mm3 (0.0-0.1) 02/27/22 09:16 Add Manual Diff Complete 02/24/22 23:22 Total Counted 100 02/24/22 23:22 Seg Neutrophils % 86.9 % (40.0-70.0) H 02/27/22 09:16 Seg Neuts % (Manual) 95.0 % (40.0-70.0) H 02/24/22 23:22 Band Neutrophils % 0 % 02/24/22 23:22 Lymphocytes % (Manual) 3.0 % (13.4-35.0) L 02/24/22 23:22 Reactive Lymphs % (Man) 0 % 02/24/22 23:22 Monocytes % (Manual) 2.0 % (0.0-7.3) 02/24/22 23:22 Eosinophils % (Manual) 0 % (0.0-4.3) 02/24/22 23:22 Basophils % (Manual) 0 % (0.0-1.8) 02/24/22 23:22 Metamyelocytes % 0 % 02/24/22 23:22 Myelocytes % 0 % 02/24/22 23:22 Promyelocytes % 0 % 02/24/22 23:22 Blast Cells % 0 % 02/24/22 23:22 Nucleated RBC % Not Reportable 02/24/22 23:22 Seg Neutrophils # 9.2 K/mm3 (1.8-7.7) H 02/27/22 09:16 Seg Neutrophils # Man 19.2 K/mm3 (1.8-7.7) H 02/24/22 23:22 Band Neutrophils # 0.0 K/mm3 02/24/22 23:22 Lymphocytes # (Manual) 0.6 K/mm3 (1.2-5.4) L 02/24/22 23:22 Abs React Lymphs (Man) 0.0 K/mm3 02/24/22 23:22 Monocytes # (Manual) 0.4 K/mm3 (0.0-0.8) 02/24/22 23:22 Eosinophils # (Manual) 0.0 K/mm3 (0.0-0.4) 02/24/22 23:22 Basophils # (Manual) 0.0 K/mm3 (0.0-0.1) 02/24/22 23:22 Metamyelocytes # 0.0 K/mm3 02/24/22 23:22 Myelocytes # 0.0 K/mm3 02/24/22 23:22 Promyelocytes # 0.0 K/mm3 02/24/22 23:22 Blast Cells # 0.0 K/mm3 02/24/22 23:22 WBC Morphology Not Reportable 02/24/22 23:22 Hypersegmented Neuts Not Reportable 02/24/22 23:22 Hyposegmented Neuts Not Reportable 02/24/22 23:22 Hypogranular Neuts Not Reportable 02/24/22 23:22 Smudge Cells Not Reportable 02/24/22 23:22 Toxic Granulation Not Reportable 02/24/22 23:22 Toxic Vacuolation Not Reportable 02/24/22 23:22 Dohle Bodies Not Reportable 02/24/22 23:22 Pelger-Huet Anomaly Not Reportable 02/24/22 23:22 Yasir Rods Not Reportable 02/24/22 23:22 Platelet Estimate Consistent w auto 02/24/22 23:22 Clumped Platelets Not Reportable 02/24/22 23:22 Plt Clumps, EDTA Not Reportable 02/24/22 23:22 Large Platelets Not Reportable 02/24/22 23:22 Giant Platelets Not Reportable 02/24/22 23:22 Platelet Satelliting Not Reportable 02/24/22 23:22 Plt Morphology Comment Not Reportable 02/24/22 23:22 RBC Morphology Not Reportable 02/24/22 23:22 Dimorphic RBCs Not Reportable 02/24/22 23:22 Polychromasia Not Reportable 02/24/22 23:22 Hypochromasia Not Reportable 02/24/22 23:22 Poikilocytosis Not Reportable 02/24/22 23:22 Anisocytosis Not Reportable 02/24/22 23:22 Microcytosis Not Reportable 02/24/22 23:22 Macrocytosis Not Reportable 02/24/22 23:22 Spherocytes Not Reportable 02/24/22 23:22 Pappenheimer Bodies Not Reportable 02/24/22 23:22 Sickle Cells Not Reportable 02/24/22 23:22 Target Cells Not Reportable 02/24/22 23:22 Tear Drop Cells Not Reportable 02/24/22 23:22 Ovalocytes 1+ 02/24/22 23:22 Helmet Cells Not Reportable 02/24/22 23:22 Levy-Carnegie Bodies Not Reportable 02/24/22 23:22 [place] Rings Not Reportable 02/24/22 23:22 [place] Cells Not Reportable 02/24/22 23:22 Bite Cells Not Reportable 02/24/22 23:22 Crenated Cell Not Reportable 02/24/22 23:22 Elliptocytes Not Reportable 02/24/22 23:22 Acanthocytes (Spur) Not Reportable 02/24/22 23:22 Rouleaux Not Reportable 02/24/22 23:22 Hemoglobin C Crystals Not Reportable 02/24/22 23:22 Schistocytes Not Reportable 02/24/22 23:22 Malaria parasites Not Reportable 02/24/22 23:22 Craig Bodies Not Reportable 02/24/22 23:22 Hem Pathologist Commnt No 02/24/22 23:22 PT 13.9 Sec. (12.2-14.9) 02/24/22 23:22 INR 0.97 (0.87-1.13) 02/24/22 23:22 Sodium 142 mmol/L (137-145) 02/27/22 09:16 Potassium 4.4 mmol/L (3.6-5.0) 02/27/22 09:16 Chloride 102.3 mmol/L (98-107) 02/27/22 09:16 Carbon Dioxide 26 mmol/L (22-30) 02/27/22 09:16 Anion Gap 18 mmol/L 02/27/22 09:16 BUN 19 mg/dL (9-20) 02/27/22 09:16 Creatinine 4.8 mg/dL (0.8-1.3) H D 02/27/22 09:16 Estimated GFR 14 ml/min 02/27/22 09:16 BUN/Creatinine Ratio 4 % 02/27/22 09:16 Glucose 106 mg/dL (75-100) H 02/27/22 09:16 POC Glucose 171 mg/dL (70-105) H 02/27/22 13:58 Calcium 8.3 mg/dL (8.4-10.2) L 02/27/22 09:16 Total Bilirubin 0.40 mg/dL (0.1-1.2) 02/26/22 07:01 AST 22 units/L (5-40) 02/26/22 07:01 ALT 43 units/L (7-56) 02/26/22 07:01 Alkaline Phosphatase 48 units/L (35-129) 02/26/22 07:01 Total Protein 6.5 g/dL (6.3-8.2) 02/26/22 07:01 Albumin 3.5 g/dL (3.9-5) L 02/26/22 07:01 Albumin/Globulin Ratio 1.2 % 02/26/22 07:01 Urine Color Yellow (Yellow) 02/25/22 Unknown Urine Turbidity Slightly-cloudy (Clear) 02/25/22 Unknown Urine pH 5.0 (5.0-7.0) 02/25/22 Unknown Ur Specific Novice 1.011 (1.003-1.030) 02/25/22 Unknown Urine Protein 30 mg/dl mg/dL (Negative) 02/25/22 Unknown Urine Glucose (UA) Neg mg/dL (Negative) 02/25/22 Unknown Urine Ketones Neg mg/dL (Negative) 02/25/22 Unknown Urine Blood Sm (Negative) 02/25/22 Unknown Urine Nitrite Neg (Negative) 02/25/22 Unknown Urine Bilirubin Neg (Negative) 02/25/22 Unknown Urine Urobilinogen < 2.0 mg/dL (<2.0) 02/25/22 Unknown Ur Leukocyte Esterase Lg (Negative) 02/25/22 Unknown Urine WBC (Auto) 57.0 /HPF (0.0-6.0) H 02/25/22 Unknown Urine RBC (Auto) 4.0 /HPF (0.0-6.0) 02/25/22 Unknown U Epithel Cells (Auto) 1.0 /HPF (0-13.0) 02/25/22 Unknown Urine Bacteria (Auto) 4+ /HPF (Negative) 02/25/22 Unknown Urine Mucus 1+ /HPF 02/25/22 Unknown Urine Yeast (Budding) Few /HPF 02/25/22 Unknown Microbiology: Microbiology 02/25/22 Unknown Urine,Clean Catch Urine Culture - Final 02/25/22 09:51 Peripheral/Venous Blood Culture - Preliminary NO GROWTH AFTER 48 HOURS 02/25/22 10:00 Peripheral/Venous Blood Culture - Preliminary NO GROWTH AFTER 48 HOURS Veliz/IV: Voiding Method Condom Catheter Active Medications - Current Medications Current Medications: Generic Name Dose Route Start Last Admin Trade Name Freq PRN Reason Stop Dose Admin Acetaminophen 650 mg 02/25/22 13:00 02/26/22 12:33 Acetaminophen 325 Mg Tab PO 650 mg Q4H PRN Administration Pain MILD(1-3)/Fever >100.5/DEJESUS Atorvastatin Calcium 80 mg 02/26/22 22:00 02/26/22 21:50 Atorvastatin 40 Mg Tab PO 80 mg QHS CHRISTIE Administration Cholecalciferol 2,000 unit 02/27/22 10:00 Cholecalciferol (Vit D3) 1000 Unit (25 Mcg) Tab PO DAILY CHRISTIE Clopidogrel Bisulfate 75 mg 02/27/22 10:00 Clopidogrel 75 Mg Tab PO QDAY CHRISTIE Cyanocobalamin 500 mcg 02/27/22 10:00 Cyanocobalamin (Vit B-12) 1000 Mcg Tab PO QDAY CHRISTIE Dextrose 50 ml 02/26/22 11:25 Dextrose 50% In Water (25gm) 50 Ml Syringe IV Q30MIN PRN Hypoglycemia Protocol Heparin Sodium (Porcine) 5,000 unit 02/25/22 13:00 02/26/22 21:50 Heparin 5,000 Unit/1 Ml Vial SUB-Q 5,000 unit Q12HR CHRISTIE Administration Dextrose/Sodium Chloride 1,000 mls @ 125 mls/hr 02/25/22 13:00 02/27/22 05:16 D5ns IV 125 mls/hr DIRECT CHRISTIE Administration Ceftriaxone Sodium 2 gm in 100 mls @ 200 mls/hr 02/26/22 08:00 02/26/22 09:07 Rocephin/Ns 2 Gm/100 Ml IV 03/02/22 07:59 200 mls/hr Q24HR CHRISTIE Administration Protocol Insulin Human Regular 0 units 02/26/22 12:00 02/27/22 06:06 Insulin Regular, Human 100 Units/1 Ml SUB-Q Not Given Q6H CHRISTIE Protocol Levetiracetam 500 mg 02/26/22 12:00 02/26/22 21:50 Levetiracetam 500 Mg Tab PO 500 mg BID CHRISTIE Administration Metoclopramide HCl 5 mg 02/26/22 08:00 Metoclopramide 10 Mg/2 Ml Inj IV Q6H PRN Nausea And Vomiting Metoprolol Succinate 12.5 mg 02/26/22 12:00 02/26/22 12:28 Metoprolol Succinate Xl 25 Mg Tab PO 12.5 mg QDAY CHRISTIE Administration Miscellaneous Medication 25 mg 02/27/22 10:00 Alogliptin Benzoate [Alogliptin] PO QDAY CHRISTIE Morphine Sulfate 2 mg 02/25/22 13:00 02/26/22 18:19 Morphine 2 Mg/1 Ml Inj IV 2 mg Q4H PRN Administration Pain, Moderate (4-6) Ondansetron HCl 4 mg 02/25/22 13:00 Ondansetron 4 Mg/2 Ml Inj IV Q8H PRN Nausea And Vomiting Pantoprazole Sodium 40 mg 02/26/22 12:00 02/26/22 12:29 Pantoprazole 40 Mg Tab PO 40 mg QDAY CHRISTIE Administration Sodium Chloride 10 ml 02/25/22 13:00 02/26/22 21:51 Sodium Chloride 0.9% 10 Ml Flush Syringe IV 10 ml BID CHRISTIE Administration Sodium Chloride 10 ml 02/25/22 13:00 Sodium Chloride 0.9% 10 Ml Flush Syringe IV PRN PRN LINE FLUSH
[2022-02-27] MEDS ORDERED: SODIUM CHLORIDE 0.9% 1000 ML 1,000 ML IV SCH (14:15)
--- NOTE | 2022-02-27 17:13 | Ultrasound Report ---
ULTRASOUND RENAL INDICATION / CLINICAL INFORMATION: Elevated Cr. COMPARISON: CT abdomen/pelvis 02/25/2022. FINDINGS: RIGHT KIDNEY: Length = 8.3 cm. - Echogenicity: Normal. - Parenchymal Thickness: Normal. - Hydronephrosis: None. - Cyst / Mass: None. - Stones: None seen. LEFT KIDNEY: Length = 9.3 cm. - Echogenicity: Normal. - Parenchymal Thickness: Normal. - Hydronephrosis: None. - Cyst / Mass: Simple appearing upper pole cyst measuring 2.2 cm. - Stones: None seen. URINARY BLADDER: Minimally distended. No significant abnormality identified. FREE FLUID: None. ADDITIONAL FINDINGS: None. IMPRESSION: 1. No acute sonographic abnormality. Scribed by: Jessy Glover RDMS, DAVON, MADHU Scribed: 02/27/2022 3:30 PM I have reviewed the images, agree with this report, and edited this report as needed. Signer Name: Hamilton Lund MD Signed: 02/27/2022 5:08 PM Workstation Name: [id number]
[2022-02-28] MEDS: INSULIN REGULAR, HUMAN 100 UNITS/1 ML SUB-Q SCH ×3 (06:32→12:00)
[2022-02-28 07:29] LABS: Basophils % (Auto) 0.3 % (0.0-1.8); Eosinophils # (Auto) 0.2 K/mm3 (0.0-0.4); Eosinophils % (Auto) 2.3 % (0.0-4.3); Hematocrit 36.7 % (35.5-45.6); Hemoglobin 12.3 gm/dl (11.8-15.2); Lymphocytes # (Auto) 1.3 K/mm3 (1.2-5.4); Lymphocytes % (Auto) 14.4 % (13.4-35.0); Mean Corpuscular HGB Conc 33 % (32-34); Mean Corpuscular Volume 83 fl (84-94); Monocytes % (Auto) 11.2 % (0.0-7.3); Platelet Count 177 K/mm3 (140-440); Red Blood Count 4.42 M/mm3 (3.65-5.03)
[2022-02-28 07:48] LABS: BUN/Creatinine Ratio 10; Blood Urea Nitrogen 9 mg/dL (9-20); Calcium 8.8 mg/dL (8.4-10.2); Hemolysis Index 6
--- NOTE | 2022-02-28 07:49 | Consultation ---
History of Present Illness - Reason for Consult Consult date: 02/28/22 acute renal failure Past History Past Medical History: CAD, diabetes, GERD, hypertension, hyperlipidemia, PVD, stroke Past Surgical History: CABG Social history: Medications and Allergies Allergies Allergy/AdvReac Type Severity Reaction Status Date / Time diphenhydramine Allergy Hives Verified 07/14/21 19:44 [From Benadryl] trimethobenzamide Allergy Unknown Verified 07/14/21 19:44 [From Tigan] Home Medications Medication Instructions Recorded Confirmed Last Taken Type Rosuvastatin Calcium [Crestor] 40 mg PO DAILY 11/24/18 02/25/22 07/01/21 History Clopidogrel Bisulfate [Plavix] 75 mg PO QDAY #30 tablet 11/27/18 02/25/22 07/01/21 Rx Metoprolol Succinate 12.5 mg PO DAILY 10/11/19 02/25/22 07/01/21 History Pantoprazole [Protonix TAB] 40 mg PO QDAY 10/11/19 02/25/22 07/01/21 History levETIRAcetam [Keppra TAB] 500 mg PO BID 10/11/19 02/25/22 07/01/21 History Alogliptin Benzoate [Alogliptin] 25 mg PO QDAY 07/03/21 02/25/22 07/01/21 History Cyanocobalamin (Vitamin B-12) 500 mcg PO QDAY 07/03/21 02/25/22 07/01/21 History [Vitamin B-12] Ergocalciferol (Vitamin D2) 50 mcg PO QDAY 07/03/21 02/25/22 07/01/21 History [Vitamin D2] Metoprolol Xl [Metoprolol 50 mg PO QDAY #60 tablet 07/06/21 02/25/22 Unknown Rx SUCCINATE ER TAB] Clotrimazole 1% [Lotrimin 1%] 1 applic TP BID #1 tube 07/14/21 02/25/22 Unknown Rx Ondansetron [Zofran ODT TAB] 8 mg PO Q8HR 7 Days #21 tab.rapdis 02/25/22 Unknown Rx NS AtorvaSTATin [Lipitor] 80 mg PO QHS tablet 02/27/22 Unknown Rx Cholecalciferol Vit D3 [Vitamin D3 2,000 unit PO DAILY tablet 02/27/22 Unknown Rx 1,000 UNIT TAB] Ciprofloxacin HCl 500 mg PO BID #14 02/27/22 Unknown Rx Cyanocobalamin [Vitamin B-12] 500 mcg PO QDAY tablet 02/27/22 Unknown Rx Insulin Regular, Human [HumuLIN R] 0 units SUB-Q Q6H units 02/27/22 Unknown Rx Metoclopramide [Reglan INJ] 5 mg IV Q6H PRN vial 02/27/22 Unknown Rx Metoprolol Xl [Metoprolol 12.5 mg PO QDAY tablet 02/27/22 Unknown Rx SUCCINATE ER TAB] Active Meds: Active Medications Acetaminophen (Acetaminophen 325 Mg Tab) 650 mg PO Q4H PRN PRN Reason: Pain MILD(1-3)/Fever >100.5/DEJESUS Last Admin: 02/27/22 12:30 Dose: 650 mg Atorvastatin Calcium (Atorvastatin 40 Mg Tab) 80 mg PO QHS [facility] Last Admin: 02/27/22 21:39 Dose: 80 mg Cholecalciferol (Cholecalciferol (Vit D3) 1000 Unit (25 Mcg) Tab) 2,000 unit PO DAILY [facility] Last Admin: 02/27/22 11:26 Dose: 2,000 unit Clopidogrel Bisulfate (Clopidogrel 75 Mg Tab) 75 mg PO QDAY [facility] Last Admin: 02/27/22 11:30 Dose: 75 mg Cyanocobalamin (Cyanocobalamin (Vit B-12) 1000 Mcg Tab) 500 mcg PO QDAY [facility] Last Admin: 02/27/22 11:24 Dose: 500 mcg Dextrose (Dextrose 50% In Water (25gm) 50 Ml Syringe) 50 ml IV Q30MIN PRN; Protocol PRN Reason: Hypoglycemia Heparin Sodium (Porcine) (Heparin 5,000 Unit/1 Ml Vial) 5,000 unit SUB-Q Q12HR [facility] Last Admin: 02/27/22 22:00 Dose: 5,000 unit Ceftriaxone Sodium (Rocephin/Ns 2 Gm/100 Ml) 2 gm in 100 mls @ 200 mls/hr IV Q24HR [facility]; Protocol Stop: 03/02/22 07:59 Last Admin: 02/27/22 11:27 Dose: 200 mls/hr Sodium Chloride (Nacl 0.9% 1000 Ml) 1,000 mls @ 75 mls/hr IV DIRECT [facility] Insulin Human Regular (Insulin Regular, Human 100 Units/1 Ml) 0 units SUB-Q Q6H [facility]; Protocol Last Admin: 02/28/22 06:32 Dose: Not Given Levetiracetam (Levetiracetam 500 Mg Tab) 500 mg PO BID [facility] Last Admin: 02/27/22 21:39 Dose: 500 mg Metoclopramide HCl (Metoclopramide 10 Mg/2 Ml Inj) 5 mg IV Q6H PRN PRN Reason: Nausea And Vomiting Metoprolol Succinate (Metoprolol Succinate Xl 25 Mg Tab) 12.5 mg PO QDAY [facility] Last Admin: 02/27/22 11:23 Dose: 12.5 mg Miscellaneous Medication (Alogliptin Benzoate [Alogliptin]) 25 mg PO QDAY [facility] Morphine Sulfate (Morphine 2 Mg/1 Ml Inj) 2 mg IV Q4H PRN PRN Reason: Pain, Moderate (4-6) Last Admin: 02/26/22 18:19 Dose: 2 mg Ondansetron HCl (Ondansetron 4 Mg/2 Ml Inj) 4 mg IV Q8H PRN PRN Reason: Nausea And Vomiting Pantoprazole Sodium (Pantoprazole 40 Mg Tab) 40 mg PO QDAY [facility] Last Admin: 02/27/22 11:30 Dose: 40 mg Sodium Chloride (Sodium Chloride 0.9% 10 Ml Flush Syringe) 10 ml IV BID [facility] Last Admin: 02/27/22 21:49 Dose: 10 ml Sodium Chloride (Sodium Chloride 0.9% 10 Ml Flush Syringe) 10 ml IV PRN PRN PRN Reason: LINE FLUSH Exam - Vital Signs Vital signs: Vital Signs Temp Pulse Resp BP Pulse Ox 98.2 F 94 H 16 136/68 100 02/24/22 22:32 02/24/22 22:32 02/24/22 22:32 02/24/22 22:32 02/24/22 22:32 Results - Lab Results 02/28/22 05:21 02/28/22 05:21 Most recent lab results Calcium 8.8 mg/dL (8.4-10.2) 02/28/22 05:21
[2022-02-28] MEDS: cefTRIAXone/NS 2 GM/100 ML 2 GM/100 ML BAG IV SCH (10:56)
[2022-02-28] MEDS: CHOLECALCIFEROL (VIT D3) 1000 UNIT (25 mcg) TAB PO SCH (10:59)
[2022-02-28] MEDS: CYANOCOBALAMIN (VIT B-12) 1000 MCG TAB PO SCH (10:59)
[2022-02-28] MEDS: METOPROLOL SUCCINATE XL 25 MG TAB PO SCH (10:59)
[2022-02-28] MEDS: levETIRAcetam 500 MG TAB PO SCH (10:59)
[2022-02-28] MEDS: PANTOPRAZOLE 40 MG TAB PO SCH (11:00)
[2022-02-28] MEDS: CLOPIDOGREL 75 MG TAB PO SCH (11:00)
[2022-02-28] MEDS: HEPARIN 5,000 UNIT/1 ML VIAL SUB-Q SCH (11:35)
[2022-02-28 14:55] VITALS: BP 158/70
[2022-02-28] MEDS: ACETAMINOPHEN 325 MG TAB PO PRN (16:36)
== END 2022-02-28 16:40 | disposition home or self-care (01) | DRG 689 ==
LOC: ED 22:01 → 3A 02-25 12:30
PROVIDERS: ADMIT Internal Medicine; ATTEND Hospitalist
DX: N39.0 Urinary tract infection, site not specified (principal); N17.0 Acute kidney failure with tubular necrosis; R65.10 Systemic inflammatory response syndrome (SIRS) of non-infectious origin without acute organ dysfunction; E11.69 Type 2 diabetes mellitus with other specified complication; I10 Essential (primary) hypertension; E78.5 Hyperlipidemia, unspecified; M19.90 Unspecified osteoarthritis, unspecified site; I25.10 Atherosclerotic heart disease of native coronary artery without angina pectoris; K21.9 Gastro-esophageal reflux disease without esophagitis; E86.0 Dehydration; Z86.73 Personal history of transient ischemic attack (TIA), and cerebral infarction without residual deficits; Z87.891 Personal history of nicotine dependence
CPT/HCPCS: 36415; 74177; 76770; 80048; 80053; 81001; 82962; 85007; 85025; 85610; 87040; 87086; G0378; J3490; Q9967; J0696; J1644; J1815; J2270; J2405; J7030; J7042